=== PATIENT | male | born 1995 | race Caucasian/White ===

== ENCOUNTER 2018-09-27 15:18 | Inpatient (IN) | payer SELFPAY ==
[~2018-09-27] VITALS: Ht 180.3 cm; Wt 76.2 kg
[2018-09-27] VITALS (7 sets, daily range): BP systolic 127–150; BP diastolic 73–100; BMI 23.4
--- NOTE | ~2018-09-27 | MORECARE ---
CASE MANAGEMENT DISCHARGE SUMMARY PATIENT: DARRELL PENN UNIT: [id number] ADM DATE: 09/28/18 AGE: 23 : [birth year] SEX: M ROOM/BED: D.1211 AUTHOR: WHIT,DOC PHYSICIAN: REFERRING PHYSICIAN: PETTY CASTORENA MD DATE OF SERVICE: 10/01/18 Discharge Plan Patient Name: DARRELL PENN Facility: [facility]:[place] : 1995 Planned Disposition: Home Anticipated Discharge Date: Discharge Date: 10/01/2018 Expected LOS: Initial Reviewer: [email or web address] Initial Review Date: 10/01/2018 Generated: 10/01/18 10:01 pm Comments DCP- Discharge Planning Updated by [email or web address]: Rubi Fofana on 10/01/18 8:[address] Patient Name: DARRELL PENN Admission Status: ER Accout number: [id number] Admission Date: 09-28-2018 : 1995 Admission Diagnosis:NAUSEA WITH VOMITING, UNSPECIFIED Attending: PETTY CASTORENA Current LOS: 3 Anticipated DC Date: Planned Disposition: Home Primary Insurance: UNINSURED DISCOUNT PLAN Discharge Planning Comments: CM met with patient and girlfriend at bedside after obtaining verbal consent. Patient states he plans on returning home after discharge. Patient states he will have family transport him home via private vehicle. Patient denies any discharge needs at this time. CM spoke to patient about Medicaid he said he would be applying for it. CM will continue to follow and assist as needed for discharge planning / needs. Texture Artist: Rubi Fofana DCPIA - Discharge Planning Initial Assessment Updated by [email or web address]: Rubi Fofana on 10/01/18 8:57 pm * Is the patient Alert and Oriented? Yes * How many steps to enter\exit or inside your home? * PCP NO PCP * Pharmacy [facility] [address] * Preadmission Environment Home with Family * ADLs Independent * Equipment None * List name and contact numbers for known caregivers / representatives who currently or will assist patient after discharge: GUERLINE POOL [phone] * Verbal permission to speak to the caregivers and representatives has been obtained from the patient. Yes * Community resources currently utilized None * Additional services required to return to the preadmission environment? No * Can the patient safely return to the preadmission environment? Yes * Has this patient been hospitalized within the prior 30 days at any hospital? No Patient Name: DARRELL PENN Page [phone] at 2101 All edits/amendments must be made on the electronic document DICTATION DATE: 10/01/182099 DIGESTER HAND: DARYL 10/01/182099 RPT#: [id number] DC DATE:10/01/18 STATUS: DIS IN [facility] [address] [place] [address] END OF REPORT
[2018-09-27 16:14] LABS: BASOPHILS 0.1 % (0-2); EOSINOPHILS 0 % (0-7); HEMATOCRIT 54.2 % (42.0-54.0); IMMATURE GRANULOCYTES 0.3 % (0-5); LYMPHOCYTES 11.4 % (15-50); MCH 30.9 pg (26.0-34.0); MCHC 38.7 g/dL (31.0-37.0); MCV 79.7 fL (80.0-100.0); MEAN PLATELET VOLUME 9.5 fL (7.4-10.4); MONOCYTES 13.9 % (2-11); NEUTROPHILS 74.3 % (40-80); PLATELET COUNT 495 10x3/uL (130-400); RDW 12.3 % (11.5-14.5); WBC 12.5 10x3/uL (4.8-10.8)
[2018-09-27 16:39] LABS: ALBUMIN 4.7 g/dL (3.4-5.0); ALKALINE PHOSPHATASE 80 U/L (46-116); ALT (SGPT) 19 U/L (10-68); AMYLASE - SERUM 78 U/L (25-115); BILIRUBIN - TOTAL 1.04 mg/dL (0.2-1.3); CALC OSMOLALITY 260 mosm/kg (275-300); CALCIUM 10.9 mg/dL (8.5-10.1); CREATININE - SERUM 1.2 mg/dL (0.6-1.3); GLUCOSE 110 mg/dL (74-106); LIPASE 118 U/L (73-393); PROTEIN - SERUM 9.8 g/dL (6.4-8.2); SODIUM 125 mmol/L (136-145); UREA NITROGEN 34 mg/dL (7-18); eGFR NON AFRICAN AMERICAN 80 mL/min (90-120)
[2018-09-27 16:42] LABS: POTASSIUM - SERUM 2.3 mmol/L (3.5-5.1)
[2018-09-27 16:43] LABS: CARBON DIOXIDE 42.8 mmol/L (21.0-32.0); CHLORIDE - SERUM 73 mmol/L (98-107)
[2018-09-27 17:27] LABS: APPEARANCE SL CLDY (CLEAR); BILIRUBIN NEGATIVE (NEGATIVE); COLOR DK YELLOW (YELLOW); GLUCOSE NEGATIVE (NEGATIVE); KETONE MODERATE mg/dL (NEGATIVE); NITRITE NEGATIVE (NEGATIVE); PROTEIN 2+ mg/dL (NEGATIVE); UROBILINOGEN NORMAL (NORMAL)
[2018-09-27 17:28] LABS: RED CELLS - URINE 0-5 /hpf (0-5); WHITE CELLS - URINE 0-5 /hpf (0-5)
[2018-09-28] VITALS: BP 129/85
[2018-09-28 04:00] VITALS: BP 138/92
[2018-09-28 07:05] LABS: BASOPHILS 0.2 % (0-2); EOSINOPHILS 0.3 % (0-7); HEMATOCRIT 51.8 % (42.0-54.0); HEMOGLOBIN 19.5 g/dL (13.5-17.5); IMMATURE GRANULOCYTES 0.5 % (0-5); LYMPHOCYTES 17.1 % (15-50); MCH 30.7 pg (26.0-34.0); MCHC 37.6 g/dL (31.0-37.0); MCV 81.4 fL (80.0-100.0); MEAN PLATELET VOLUME 9.7 fL (7.4-10.4); NEUTROPHILS 67.9 % (40-80); PLATELET COUNT 426 10x3/uL (130-400); RBC 6.36 10x6/uL (4.20-6.10); RDW 12.5 % (11.5-14.5); WBC 10.8 10x3/uL (4.8-10.8)
[2018-09-28 07:09] VITALS: BP 137/86
[2018-09-28 07:15] LABS: CALCIUM 9.6 mg/dL (8.5-10.1); CARBON DIOXIDE 39.8 mmol/L (21.0-32.0); GLUCOSE 112 mg/dL (74-106); SODIUM 128 mmol/L (136-145); eGFR NON AFRICAN AMERICAN > 90 mL/min (90-120)
[2018-09-28 07:16] LABS: CALC OSMOLALITY 261 mosm/kg (275-300); UREA NITROGEN 25 mg/dL (7-18)
[2018-09-28 07:19] LABS: CHLORIDE - SERUM 83 mmol/L (98-107); POTASSIUM - SERUM 2.7 mmol/L (3.5-5.1)
[2018-09-28 08:56] LABS: APTT 32.4 SECONDS (22.8-39.4); INR 1.02 (0.85-1.17); PROTIME 12.9 SECONDS (11.6-15.0)
[2018-09-28 10:52] VITALS: BP 132/79
[2018-09-28 14:53] VITALS: BP 121/72
[2018-09-28 18:58] VITALS: BP 109/62
[2018-09-29 00:06] VITALS: BP 121/80
[2018-09-29 04:00] VITALS: BP 140/93
[2018-09-29 06:31] LABS: CALC OSMOLALITY 266 mosm/kg (275-300); CARBON DIOXIDE 35.3 mmol/L (21.0-32.0); CHLORIDE - SERUM 92 mmol/L (98-107); GLUCOSE 110 mg/dL (74-106); SODIUM 131 mmol/L (136-145); UREA NITROGEN 21 mg/dL (7-18); eGFR NON AFRICAN AMERICAN > 90 mL/min (90-120)
[2018-09-29 06:34] LABS: POTASSIUM - SERUM 2.7 mmol/L (3.5-5.1)
[2018-09-29 06:43] LABS: BASOPHILS 0.1 % (0-2); EOSINOPHILS 0.8 % (0-7); HEMATOCRIT 49.7 % (42.0-54.0); HEMOGLOBIN 18.5 g/dL (13.5-17.5); IMMATURE GRANULOCYTES 0.7 % (0-5); LYMPHOCYTES 19.8 % (15-50); MCH 30.5 pg (26.0-34.0); MCHC 37.2 g/dL (31.0-37.0); MCV 81.9 fL (80.0-100.0); MEAN PLATELET VOLUME 9.8 fL (7.4-10.4); MONOCYTES 12.9 % (2-11); NEUTROPHILS 65.7 % (40-80); PLATELET COUNT 392 10x3/uL (130-400); RBC 6.07 10x6/uL (4.20-6.10); RDW 12.3 % (11.5-14.5); WBC 8.7 10x3/uL (4.8-10.8)
[2018-09-29 07:43] VITALS: BP 113/68
[2018-09-29 15:00] LABS: UDS - AMPHET NEGATIVE QUAL (NEGATIVE); UDS - BARB NEGATIVE QUAL (NEGATIVE); UDS - BENZO NEGATIVE QUAL (NEGATIVE); UDS - COCAINE NEGATIVE QUAL (NEGATIVE); UDS - OPIATE POSITIVE QUAL (NEGATIVE); UDS - PCP NEGATIVE QUAL (NEGATIVE); UDS - THC POSITIVE QUAL (NEGATIVE)
[2018-09-29 15:08] LABS: APPEARANCE CLEAR (CLEAR); BILIRUBIN NEGATIVE (NEGATIVE); COLOR YELLOW (YELLOW); GLUCOSE NEGATIVE (NEGATIVE); KETONE NEGATIVE (NEGATIVE); NITRITE NEGATIVE (NEGATIVE); PROTEIN TRACE mg/dL (NEGATIVE); SPECIFIC GRAVITY 1.005 (1.005-1.020); UROBILINOGEN NORMAL (NORMAL)
[2018-09-29 15:09] LABS: BACTERIA MODERATE /hpf (NONE SEEN); RED CELLS - URINE 0-5 /hpf (0-5); WHITE CELLS - URINE 0-5 /hpf (0-5)
[2018-09-29 15:44] VITALS: Ht 180.3 cm; Wt 76.2 kg
[2018-09-29 16:00] VITALS: BP 108/79
[2018-09-29 20:00] VITALS: BP 115/70
[2018-09-30 00:30] VITALS: BP 109/52
[2018-09-30 07:16] LABS: CALC OSMOLALITY 264 mosm/kg (275-300); CALCIUM 8.8 mg/dL (8.5-10.1); CARBON DIOXIDE 30.9 mmol/L (21.0-32.0); CHLORIDE - SERUM 96 mmol/L (98-107); CREATININE - SERUM 0.9 mg/dL (0.6-1.3); GLUCOSE 96 mg/dL (74-106); POTASSIUM - SERUM 3.1 mmol/L (3.5-5.1); SODIUM 131 mmol/L (136-145); UREA NITROGEN 17 mg/dL (7-18); eGFR NON AFRICAN AMERICAN > 90 mL/min (90-120)
[2018-09-30 07:57] LABS: BASOPHILS 0.3 % (0-2); EOSINOPHILS 1.9 % (0-7); HEMOGLOBIN 16.7 g/dL (13.5-17.5); IMMATURE GRANULOCYTES 0.8 % (0-5); LYMPHOCYTES 27.4 % (15-50); MCH 29.9 pg (26.0-34.0); MCHC 36.3 g/dL (31.0-37.0); MCV 82.3 fL (80.0-100.0); MEAN PLATELET VOLUME 9.7 fL (7.4-10.4); MONOCYTES 10.5 % (2-11); NEUTROPHILS 59.1 % (40-80); PLATELET COUNT 337 10x3/uL (130-400); RBC 5.59 10x6/uL (4.20-6.10); RDW 12.2 % (11.5-14.5); WBC 9.1 10x3/uL (4.8-10.8)
[2018-09-30 08:47] VITALS: BP 105/77
[2018-09-30 12:49] VITALS: BP 127/74
[2018-09-30 16:44] VITALS: BP 113/69
[2018-09-30 20:00] VITALS: BP 131/70
[2018-10-01] VITALS: BP 97/46
[2018-10-01 04:00] VITALS: BP 108/66
[2018-10-01 07:48] LABS: BASOPHILS 0.6 % (0-2); HEMATOCRIT 46.5 % (42.0-54.0); HEMOGLOBIN 16.9 g/dL (13.5-17.5); IMMATURE GRANULOCYTES 0.5 % (0-5); LYMPHOCYTES 26.3 % (15-50); MCH 30.5 pg (26.0-34.0); MCHC 36.3 g/dL (31.0-37.0); MCV 83.9 fL (80.0-100.0); MONOCYTES 9.3 % (2-11); NEUTROPHILS 61.3 % (40-80); PLATELET COUNT 298 10x3/uL (130-400); RBC 5.54 10x6/uL (4.20-6.10); RDW 12.5 % (11.5-14.5)
[2018-10-01 08:03] LABS: CALC OSMOLALITY 264 mosm/kg (275-300); CALCIUM 9.3 mg/dL (8.5-10.1); CHLORIDE - SERUM 99 mmol/L (98-107); CREATININE - SERUM 0.7 mg/dL (0.6-1.3); GLUCOSE 84 mg/dL (74-106); SODIUM 132 mmol/L (136-145); UREA NITROGEN 15 mg/dL (7-18); eGFR NON AFRICAN AMERICAN > 90 mL/min (90-120)
[2018-10-01 08:04] VITALS: BP 132/79
[2018-10-01 08:04] LABS: POTASSIUM - SERUM 4.8 mmol/L (3.5-5.1)
[2018-10-01 11:32] VITALS: BP 109/53
[2018-10-01] MEDS ORDERED: REGLAN10 MG PO (13:47)
== END 2018-10-01 17:29 | disposition home or self-care (01) | DRG 392 ==
LOC: D.ER 15:18 → D.M3 18:41 → D.EDHOLD 18:41 → OBSVTIME 18:42 → D.M3 19:17
PROVIDERS: Emergency Medicine; Internal Medicine Nephrology
DX: A08.4 Viral intestinal infection, unspecified (principal); F17.213 Nicotine dependence, cigarettes, with withdrawal; E86.9 Volume depletion, unspecified; E87.6 Hypokalemia; F12.90 Cannabis use, unspecified, uncomplicated; K31.84 Gastroparesis

== ENCOUNTER 2018-12-24 18:49 | Emergency (ER) | payer SELFPAY ==
[~2018-12-24] VITALS: Ht 180.3 cm; Wt 75.0 kg
[~2018-12-24 18:49] MED LIST: REGLAN10 MG PO
[2018-12-24 19:05] VITALS: Ht 180.3 cm; Wt 75.0 kg
[2018-12-24 19:50] LABS: BASOPHILS 0.1 % (0-2); EOSINOPHILS 0.1 % (0-7); HEMATOCRIT 53.4 % (42.0-54.0); HEMOGLOBIN 19.5 g/dL (13.5-17.5); IMMATURE GRANULOCYTES 0.3 % (0-5); LYMPHOCYTES 7.3 % (15-50); MCH 30.6 pg (26.0-34.0); MCHC 36.5 g/dL (31.0-37.0); MCV 83.8 fL (80.0-100.0); MEAN PLATELET VOLUME 9.8 fL (7.4-10.4); MONOCYTES 9.1 % (2-11); NEUTROPHILS 83.1 % (40-80); RBC 6.37 10x6/uL (4.20-6.10); RDW 12.9 % (11.5-14.5); WBC 18.2 10x3/uL (4.8-10.8)
[2018-12-24 20:03] LABS: PLATELET COUNT 427 10x3/uL (130-400)
[2018-12-24 20:16] LABS: ALKALINE PHOSPHATASE 63 U/L (46-116); ALT (SGPT) 21 U/L (10-68); AMYLASE - SERUM 73 U/L (25-115); BILIRUBIN - TOTAL 0.55 mg/dL (0.2-1.3); CALC OSMOLALITY 282 mosm/kg (275-300); CALCIUM 9.9 mg/dL (8.5-10.1); CARBON DIOXIDE 35.5 mmol/L (21.0-32.0); CHLORIDE - SERUM 95 mmol/L (98-107); CREATININE - SERUM 1.1 mg/dL (0.6-1.3); GLUCOSE 120 mg/dL (74-106); LIPASE 79 U/L (73-393); POTASSIUM - SERUM 3.1 mmol/L (3.5-5.1); PROTEIN - SERUM 9.4 g/dL (6.4-8.2); SODIUM 141 mmol/L (136-145); TROPONIN-I < 0.017 ng/mL (0.000-0.060); UREA NITROGEN 15 mg/dL (7-18); eGFR NON AFRICAN AMERICAN 89 mL/min (90-120)
[2018-12-24] MEDS ORDERED: ZOFRAN ODT4 MG/UDTAB PO (21:45)
[2018-12-24] MEDS ORDERED: PROTONIX40 MG PO (21:45)
[2018-12-24] MEDS ORDERED: REGLAN10 MG PO (21:45)
[2018-12-24] MEDS ORDERED: BENTYL 20 MG TA20 MG PO (21:45)
[2018-12-24 21:55] LABS: APPEARANCE CLEAR (CLEAR); BILIRUBIN NEGATIVE (NEGATIVE); COLOR YELLOW (YELLOW); GLUCOSE NEGATIVE (NEGATIVE); KETONE NEGATIVE (NEGATIVE); NITRITE NEGATIVE (NEGATIVE); PROTEIN NEGATIVE (NEGATIVE); SPECIFIC GRAVITY 1.005 (1.005-1.020); UROBILINOGEN NORMAL (NORMAL)
[2018-12-24 22:20] VITALS: BP 139/71
== END 2018-12-24 22:20 | disposition home or self-care (01) ==
LOC: D.ER 18:49
PROVIDERS: Emergency Medicine; Family Medicine
DX: A08.4 Viral intestinal infection, unspecified (principal); K20.9 Esophagitis, unspecified; K31.84 Gastroparesis; R10.84 Generalized abdominal pain

== ENCOUNTER 2018-12-26 13:53 | Inpatient (IN) | payer SELFPAY ==
[~2018-12-26] VITALS: Ht 180.3 cm; Wt 80.6 kg
[~2018-12-26 13:53] MED LIST changes: +BENTYL 20 MG TA20 MG PO; +PROTONIX40 MG PO; +ZOFRAN ODT4 MG/UDTAB PO
[2018-12-26 14:04] VITALS: Ht 180.3 cm; Wt 80.6 kg
[2018-12-26 15:00] LABS: ALBUMIN 4.7 g/dL (3.4-5.0); ALKALINE PHOSPHATASE 69 U/L (46-116); ALT (SGPT) 16 U/L (10-68); BILIRUBIN - TOTAL 0.99 mg/dL (0.2-1.3); CALC OSMOLALITY 268 mosm/kg (275-300); CALCIUM 10.1 mg/dL (8.5-10.1); CARBON DIOXIDE 34.5 mmol/L (21.0-32.0); CHLORIDE - SERUM 87 mmol/L (98-107); GLUCOSE 113 mg/dL (74-106); SODIUM 133 mmol/L (136-145); UREA NITROGEN 17 mg/dL (7-18); eGFR NON AFRICAN AMERICAN > 90 mL/min (90-120)
--- NOTE | 2018-12-26 15:00 | NUR ---
PT UNABLE TO PROVIDE URINE SAMPLE AT THIS TIME.
[2018-12-26 15:01] LABS: BASOPHILS 0.1 % (0-2); EOSINOPHILS 0 % (0-7); HEMATOCRIT 52.4 % (42.0-54.0); HEMOGLOBIN 19.6 g/dL (13.5-17.5); IMMATURE GRANULOCYTES 0.2 % (0-5); LYMPHOCYTES 8.8 % (15-50); MCH 30.1 pg (26.0-34.0); MCHC 37.4 g/dL (31.0-37.0); MEAN PLATELET VOLUME 9.9 fL (7.4-10.4); MONOCYTES 10.4 % (2-11); NEUTROPHILS 80.5 % (40-80); PLATELET COUNT 425 10x3/uL (130-400); RDW 12.6 % (11.5-14.5); WBC 12.5 10x3/uL (4.8-10.8)
[2018-12-26 15:04] LABS: MCV 80.4 fL (80.0-100.0); RBC 6.52 10x6/uL (4.20-6.10)
[2018-12-26 15:09] LABS: POTASSIUM - SERUM 2.9 mmol/L (3.5-5.1)
[2018-12-26 16:28] LABS: AMYLASE - SERUM 78 U/L (25-115); LIPASE 96 U/L (73-393)
[2018-12-26 17:44] VITALS: BP 123/71
--- NOTE | 2018-12-26 18:03 | NUR ---
RECIEVED PT FROM ER. VISABILY ILL NOT CURRENTLY THROWING UP. NPO AT THSI TIME. CL IN REACH. SRX2. GIRLFRIEND AT BEDSIDE
--- NOTE | 2018-12-26 18:30 | NUR ---
PT K IS 2.9. PT WAS THE ONE THAT ALERTED ME TO THE FACT ER TOLD HIM HIS K WAS CRITICALLY LOW. ER DID NOT TREAT OR INFORM ME OF THE PROBLEM. WILL TX. RESULTS CAME AT 1430
[2018-12-26 18:45] LABS: PHOSPHOROUS 4.3 mg/dL (2.5-4.9)
[2018-12-26 20:00] VITALS: BP 132/86
--- NOTE | 2018-12-26 20:14 | NUR ---
RECIEVED LYING IN BED WITH EYES CLOSED. EYES OPEN SPONTANEOUSLY WHEN DOOR OPENS. IV TO LEFT AC WITH LR INFUSING AT 125. DENIES ANY NEEDS AT THIS TIME.
[2018-12-27 00:05] VITALS: BP 111/66
[2018-12-27 04:00] VITALS: BP 126/72
[2018-12-27 05:55] LABS: BASOPHILS 0.1 % (0-2); EOSINOPHILS 0.1 % (0-7); HEMATOCRIT 49.4 % (42.0-54.0); HEMOGLOBIN 18.5 g/dL (13.5-17.5); IMMATURE GRANULOCYTES 0.2 % (0-5); LYMPHOCYTES 11.7 % (15-50); MCH 30.4 pg (26.0-34.0); MCHC 37.4 g/dL (31.0-37.0); MCV 81.3 fL (80.0-100.0); MEAN PLATELET VOLUME 10.1 fL (7.4-10.4); MONOCYTES 9.4 % (2-11); NEUTROPHILS 78.5 % (40-80); RBC 6.08 10x6/uL (4.20-6.10); RDW 12.4 % (11.5-14.5); WBC 9.8 10x3/uL (4.8-10.8)
[2018-12-27 06:03] LABS: PLATELET COUNT 332 10x3/uL (130-400)
[2018-12-27 06:15] LABS: ALKALINE PHOSPHATASE 57 U/L (46-116); ALT (SGPT) 16 U/L (10-68); CALC OSMOLALITY 270 mosm/kg (275-300); CALCIUM 9.3 mg/dL (8.5-10.1); CARBON DIOXIDE 29.3 mmol/L (21.0-32.0); CHLORIDE - SERUM 94 mmol/L (98-107); CREATININE - SERUM 0.8 mg/dL (0.6-1.3); GLUCOSE 95 mg/dL (74-106); POTASSIUM - SERUM 3.1 mmol/L (3.5-5.1); PROTEIN - SERUM 7.8 g/dL (6.4-8.2); SODIUM 135 mmol/L (136-145); UREA NITROGEN 16 mg/dL (7-18); eGFR NON AFRICAN AMERICAN > 90 mL/min (90-120)
--- NOTE | 2018-12-27 08:20 | NUR ---
PATIENT IS RESTING QUIETLY AT THIS TIME. HE IS LAYING ON HIS LEFT SIDE IN BED WITH LIGHTS LOW AND EYES CLOSED.
[2018-12-27 09:57] VITALS: BP 107/55
--- NOTE | 2018-12-27 11:13 | NUR ---
RN ROUNDS - PATIENT RESTING WITH EYES CLOSED. FEMALE VISITOR AT BEDSIDE. NURSE IN ROOM HANGING K+ RIDER AT THIS TIME. PATIENT RESP EVEN AND UNLABORED, RESP 18. CALL LIGHT WITHIN REACH. NO DISTRESS.
[2018-12-27 12:46] VITALS: BP 136/79
[2018-12-27 17:45] VITALS: BP 138/83
--- NOTE | 2018-12-27 18:51 | NUR ---
PATIENT WAS IN THE SHOWER, AND WHEN ICAM BACK IN TO CHECK ON HIM JUST NOW HE IS NOT IN THE ROOM. HE STILL HAS DEODERANT AND A BAG WITH A T SHIRT AND UNDERWEAR IN THE ROOM. PATIENT DID NOT SAY ANYTHING TO ANY ONE.
--- NOTE | 2018-12-27 19:26 | NUR ---
RECIEVED LYING IN BED WITH TV ON AND EYES OPEN. ALWERT AND ORIENTED X4. FRIWND AT BEDSIDE. STATES NO N/V TODAY AND HE FEELS MUCH BETTER. IV TO LEFT AC WITH LR @ 125/HR. AND ZOFRAN AT 4.7. POTASSIUM INFUSING AT THIS TIME. DENIES ANY NEEDS AT THIS TIME,
[2018-12-27 20:00] VITALS: BP 119/74
[2018-12-28] VITALS: BP 134/94
[2018-12-28 04:00] VITALS: BP 134/74
[2018-12-28 05:44] LABS: BASOPHILS 0.3 % (0-2); EOSINOPHILS 0.9 % (0-7); HEMOGLOBIN 16.7 g/dL (13.5-17.5); IMMATURE GRANULOCYTES 0.2 % (0-5); LYMPHOCYTES 31.1 % (15-50); MCH 29.9 pg (26.0-34.0); MCHC 36.3 g/dL (31.0-37.0); MCV 82.3 fL (80.0-100.0); MEAN PLATELET VOLUME 10.2 fL (7.4-10.4); NEUTROPHILS 56.5 % (40-80); PLATELET COUNT 321 10x3/uL (130-400); RBC 5.59 10x6/uL (4.20-6.10); RDW 12.2 % (11.5-14.5); WBC 8.8 10x3/uL (4.8-10.8)
[2018-12-28 06:33] LABS: ALBUMIN 3.5 g/dL (3.4-5.0); ALKALINE PHOSPHATASE 48 U/L (46-116); ALT (SGPT) 15 U/L (10-68); BILIRUBIN - TOTAL 1.11 mg/dL (0.2-1.3); CALC OSMOLALITY 274 mosm/kg (275-300); CALCIUM 8.6 mg/dL (8.5-10.1); CARBON DIOXIDE 28.6 mmol/L (21.0-32.0); CHLORIDE - SERUM 98 mmol/L (98-107); GLUCOSE 82 mg/dL (74-106); PROTEIN - SERUM 6.5 g/dL (6.4-8.2); SODIUM 137 mmol/L (136-145); UREA NITROGEN 17 mg/dL (7-18); eGFR NON AFRICAN AMERICAN > 90 mL/min (90-120)
[2018-12-28 06:36] LABS: POTASSIUM - SERUM 3.2 mmol/L (3.5-5.1)
--- NOTE | 2018-12-28 07:46 | NUR ---
PT LYING IN BED. STATES HE VOMMITED AND IS UNCOMFORTABLE. CAN NOT GIVE ZOFRAN PT IS ON A ZOFRAN DRIP. PT UNDERSTANDS. DID NOT SEE VOMMITING HAPPENING. CL IN REACH SRX2.
[2018-12-28 08:33] VITALS: BP 127/73
--- NOTE | 2018-12-28 12:05 | NUR ---
RN ROUNDS. PATIENT RESTING IN BED WITH EYES CLOSED, EASILY AROUSED. LATHER APPRENTICE COMPLETING VITAL SIGNS AT THIS TIME. HR 56. DENIES NEEDS AT THIS TIME. NO DISTRESS.
[2018-12-28 12:06] LABS: APPEARANCE CLOUDY (CLEAR); BILIRUBIN NEGATIVE (NEGATIVE); COLOR YELLOW (YELLOW); GLUCOSE NEGATIVE (NEGATIVE); KETONE LARGE mg/dL (NEGATIVE); NITRITE NEGATIVE (NEGATIVE); PROTEIN NEGATIVE (NEGATIVE); SPECIFIC GRAVITY 1.015 (1.005-1.020)
[2018-12-28 13:26] VITALS: BP 134/88
[2018-12-28 17:01] VITALS: BP 122/75
--- NOTE | 2018-12-28 19:15 | NUR ---
RECIEVED LAYING IN BED WITH EYES OPEN AND TV ON. FRIEND AT BEDSIDE. ALERT AND ORIENTED X4. IV TO LEFT AC SL.. UP AD EVELYN. DENEIS ANY N/V AFTER THIS AM. DENIES ANY NEEDS, WILL CONT. POC.
[2018-12-28 20:00] VITALS: BP 124/77
[2018-12-29] VITALS: BP 127/74
[2018-12-29 04:00] VITALS: BP 124/90
--- NOTE | 2018-12-29 04:58 | NUR ---
RESTING IN BED WITH EYES CLOSED. EASILY AROUSES WITH VERBAL STIMULI. DENIES ANY N/V THIS SHIFT. DENIES ANY NEEDS.
[2018-12-29 06:03] LABS: ALBUMIN 3.6 g/dL (3.4-5.0); ALKALINE PHOSPHATASE 56 U/L (46-116); ALT (SGPT) 12 U/L (10-68); BILIRUBIN - TOTAL 1.06 mg/dL (0.2-1.3); CALC OSMOLALITY 269 mosm/kg (275-300); CALCIUM 9.2 mg/dL (8.5-10.1); CARBON DIOXIDE 25.6 mmol/L (21.0-32.0); CHLORIDE - SERUM 99 mmol/L (98-107); CREATININE - SERUM 0.9 mg/dL (0.6-1.3); GLUCOSE 88 mg/dL (74-106); POTASSIUM - SERUM 3.8 mmol/L (3.5-5.1); SODIUM 135 mmol/L (136-145); UREA NITROGEN 15 mg/dL (7-18); eGFR NON AFRICAN AMERICAN > 90 mL/min (90-120)
[2018-12-29 06:08] LABS: BASOPHILS 0.3 % (0-2); EOSINOPHILS 1.5 % (0-7); HEMATOCRIT 45.9 % (42.0-54.0); HEMOGLOBIN 16.9 g/dL (13.5-17.5); IMMATURE GRANULOCYTES 0.3 % (0-5); LYMPHOCYTES 27.6 % (15-50); MCHC 36.8 g/dL (31.0-37.0); MCV 81.5 fL (80.0-100.0); MEAN PLATELET VOLUME 9.8 fL (7.4-10.4); NEUTROPHILS 60.3 % (40-80); PLATELET COUNT 317 10x3/uL (130-400); RBC 5.63 10x6/uL (4.20-6.10); RDW 12.3 % (11.5-14.5); WBC 8.6 10x3/uL (4.8-10.8)
[2018-12-29 08:32] VITALS: BP 104/63
--- NOTE | 2018-12-29 12:33 | NUR ---
REVIEWED AND AGREE WITH ASSESMENT.
[2018-12-29 12:52] VITALS: BP 110/69
--- NOTE | 2018-12-29 14:00 | NUR ---
PT DISCHARGED TO HOME VIA [facility] DISCHARGE SUMMARY AND MEDS REVIEWED WITH PT TOLERATED WELL
--- NOTE | 2018-12-29 16:37 | MORECARE ---
CASE MANAGEMENT DISCHARGE SUMMARY PATIENT: DARRELL PENN UNIT: [id number] ADM DATE: 12/26/18 AGE: 23 : [birth year] SEX: M ROOM/BED: D.2131 AUTHOR: MALKA SHERMAN PHYSICIAN: REFERRING PHYSICIAN: JHONNY CHEATHAM MD DATE OF SERVICE: 12/29/18 Discharge Plan Patient Name: DARRELL PENN Facility: [facility]:[place] : 1995 Planned Disposition: Home Anticipated Discharge Date: 12/29/18 Discharge Date: 12/29/2018 Expected LOS: 3 Initial Reviewer: [email or web address] Initial Review Date: 12/29/2018 Generated: 12/29/18 5:37 pm Comments DCP- Discharge Planning Updated by [email or web address]: Yaniv Hernández on 12/29/18 3:[address] Patient Name: DARRELL PENN Admission Status: ER Accout number: [id number] Admission Date: 12-26-2018 : 1995 Admission Diagnosis: Attending: JHONNY CHEATHAM Current LOS: 3 Anticipated DC Date: 12-29-2018 Planned Disposition: Home Primary Insurance: UNINSURED DISCOUNT PLAN Discharge Planning Comments: CM RECEIVED DISCHARGE ORDER, ATTEMPTED TO MEET WITH PT FOR INITIAL ASSESSMENT OF DISCHARGE NEEDS. PT WAS NOT IN ROOM AT APPROXIMATELY 1340 HOURS. CM SPOKE TO CELLOPHANE WORKER NURSE WHO ADVISED PT HAD ALREADY DISCHARGED HOME. Pararescue Craftsman: Yaniv Hernández Patient Name: DARRELL PENN Page [phone] at 1637 All edits/amendments must be made on the electronic document DICTATION DATE: 12/29/18 1637 PIPE ORGAN MECHANIC APPRENTICE: DARYL 12/29/18 1637 RPT#: [id number] DC DATE:12/29/18 STATUS: DIS IN [facility] [address] [place] [address] END OF REPORT
== END 2018-12-29 16:05 | disposition home or self-care (01) | DRG 392 ==
LOC: D.ER 13:53 → D.M2 16:24 → D.EDHOLD 16:24 → D.M2 17:14
PROVIDERS: Family Medicine; ADMIT Family Medicine
DX: K31.84 Gastroparesis (principal); F17.213 Nicotine dependence, cigarettes, with withdrawal; E87.6 Hypokalemia; E86.0 Dehydration; F12.90 Cannabis use, unspecified, uncomplicated; K20.9 Esophagitis, unspecified

== ENCOUNTER 2019-01-16 15:36 | Emergency (ER) | payer SELFPAY ==
[~2019-01-16] VITALS: Ht 180.3 cm; Wt 80.5 kg
[2019-01-16 15:56] VITALS: Ht 180.3 cm; Wt 80.5 kg
[2019-01-16 16:27] LABS: BASOPHILS 0.1 % (0-2); EOSINOPHILS 0 % (0-7); HEMATOCRIT 45.9 % (42.0-54.0); HEMOGLOBIN 16.7 g/dL (13.5-17.5); IMMATURE GRANULOCYTES 0.1 % (0-5); LYMPHOCYTES 7.1 % (15-50); MCHC 36.4 g/dL (31.0-37.0); MCV 82.6 fL (80.0-100.0); MEAN PLATELET VOLUME 9.8 fL (7.4-10.4); MONOCYTES 4.2 % (2-11); NEUTROPHILS 88.5 % (40-80); PLATELET COUNT 311 10x3/uL (130-400); RBC 5.56 10x6/uL (4.20-6.10); RDW 12.5 % (11.5-14.5); WBC 7.4 10x3/uL (4.8-10.8)
[2019-01-16 16:51] LABS: ALBUMIN 4.3 g/dL (3.4-5.0); ALKALINE PHOSPHATASE 62 U/L (46-116); ALT (SGPT) 17 U/L (10-68); BILIRUBIN - TOTAL 0.46 mg/dL (0.2-1.3); CALCIUM 9.5 mg/dL (8.5-10.1); CARBON DIOXIDE 24.9 mmol/L (21.0-32.0); CHLORIDE - SERUM 96 mmol/L (98-107); CREATININE - SERUM 0.8 mg/dL (0.6-1.3); POTASSIUM - SERUM 3.5 mmol/L (3.5-5.1); PROTEIN - SERUM 8.4 g/dL (6.4-8.2); SODIUM 135 mmol/L (136-145); UREA NITROGEN 10 mg/dL (7-18); eGFR NON AFRICAN AMERICAN > 90 mL/min (90-120)
[2019-01-16 16:54] LABS: AMYLASE - SERUM 68 U/L (25-115); LIPASE 93 U/L (73-393)
[2019-01-16 16:56] LABS: CALC OSMOLALITY 270 mosm/kg (275-300); GLUCOSE 134 mg/dL (74-106); TROPONIN-I < 0.017 ng/mL (0.000-0.060)
[2019-01-16] MEDS ORDERED: TAMIFLU75 MG PO (18:51)
[2019-01-16] MEDS ORDERED: PHENERGAN25 M1 PO (18:52)
[2019-01-16] MEDS ORDERED: REGLAN10 MG PO (18:52)
[2019-01-16 20:05] VITALS: BP 122/71
== END 2019-01-16 20:06 | disposition home or self-care (01) ==
LOC: D.ER 15:36
PROVIDERS: Family Medicine
DX: J09.X2 Influenza due to identified novel influenza A virus with other respiratory manifestations (principal); K31.84 Gastroparesis; R50.9 Fever, unspecified

== ENCOUNTER 2019-01-19 13:37 | Emergency (ER) | payer SELFPAY ==
[~2019-01-19] VITALS: Ht 180.3 cm; Wt 77.3 kg
[~2019-01-19 13:37] MED LIST changes: +PHENERGAN25 M1 PO; +TAMIFLU75 MG PO
[2019-01-19 13:57] VITALS: Ht 180.3 cm; Wt 77.3 kg
[2019-01-19 14:54] LABS: BASOPHILS 0.2 % (0-2); EOSINOPHILS 0 % (0-7); HEMATOCRIT 51.2 % (42.0-54.0); HEMOGLOBIN 18.9 g/dL (13.5-17.5); IMMATURE GRANULOCYTES 0.2 % (0-5); MCH 29.8 pg (26.0-34.0); MCHC 36.9 g/dL (31.0-37.0); MCV 80.8 fL (80.0-100.0); MEAN PLATELET VOLUME 9.7 fL (7.4-10.4); MONOCYTES 22.7 % (2-11); NEUTROPHILS 63.9 % (40-80); PLATELET COUNT 293 10x3/uL (130-400); RBC 6.34 10x6/uL (4.20-6.10); RDW 12.3 % (11.5-14.5); WBC 4.7 10x3/uL (4.8-10.8)
[2019-01-19 15:12] LABS: ALBUMIN 4.1 g/dL (3.4-5.0); ALKALINE PHOSPHATASE 62 U/L (46-116); ALT (SGPT) 17 U/L (10-68); CALC OSMOLALITY 257 mosm/kg (275-300); CALCIUM 9.6 mg/dL (8.5-10.1); CARBON DIOXIDE 32.1 mmol/L (21.0-32.0); CREATININE - SERUM 0.8 mg/dL (0.6-1.3); GLUCOSE 106 mg/dL (74-106); PROTEIN - SERUM 8.9 g/dL (6.4-8.2); SODIUM 127 mmol/L (136-145); UREA NITROGEN 21 mg/dL (7-18); eGFR NON AFRICAN AMERICAN > 90 mL/min (90-120)
[2019-01-19 15:14] LABS: POTASSIUM - SERUM 2.8 mmol/L (3.5-5.1)
[2019-01-19 15:15] LABS: CHLORIDE - SERUM 82 mmol/L (98-107)
[2019-01-19] MEDS ORDERED: COMPAZINE25 MG RC (17:21)
[2019-01-19 18:39] VITALS: BP 138/89
== END 2019-01-19 18:00 | disposition home or self-care (01) ==
LOC: D.ER 13:37
PROVIDERS: Emergency Medicine
DX: B34.9 Viral infection, unspecified (principal); E86.0 Dehydration

== ENCOUNTER 2019-01-24 13:45 | Inpatient (IN) | payer SELFPAY ==
[~2019-01-24] VITALS: Ht 180.3 cm; Wt 80.5 kg
[~2019-01-24 13:45] MED LIST changes: +COMPAZINE25 MG RC
[2019-01-24 14:38] LABS: APPEARANCE CLEAR (CLEAR); COLOR YELLOW (YELLOW); GLUCOSE NEGATIVE (NEGATIVE); KETONE LARGE mg/dL (NEGATIVE); NITRITE NEGATIVE (NEGATIVE); PROTEIN 1+ mg/dL (NEGATIVE); SPECIFIC GRAVITY 1.015 (1.005-1.020); UROBILINOGEN NORMAL (NORMAL)
[2019-01-24 14:39] LABS: BILIRUBIN NEGATIVE (NEGATIVE)
[2019-01-24 14:42] LABS: RED CELLS - URINE OCC /hpf (0-5); WHITE CELLS - URINE OCC /hpf (0-5)
[2019-01-24 14:43] LABS: BACTERIA FEW /hpf (NONE SEEN); EPITHELIAL CELLS OCC /hpf (0-5); MUCUS >1+ /lpf (NONE SEEN)
[2019-01-24 14:55] LABS: BASOPHILS 0.1 % (0-2); EOSINOPHILS 0 % (0-7); HEMATOCRIT 51.1 % (42.0-54.0); HEMOGLOBIN 19.1 g/dL (13.5-17.5); IMMATURE GRANULOCYTES 0.6 % (0-5); LYMPHOCYTES 24.3 % (15-50); MCH 29.7 pg (26.0-34.0); MCHC 37.4 g/dL (31.0-37.0); MCV 79.3 fL (80.0-100.0); RBC 6.44 10x6/uL (4.20-6.10); RDW 12.6 % (11.5-14.5); WBC 8.3 10x3/uL (4.8-10.8)
[2019-01-24 15:05] LABS: ALBUMIN 3.7 g/dL (3.4-5.0); ALKALINE PHOSPHATASE 57 U/L (46-116); ALT (SGPT) 16 U/L (10-68); AMYLASE - SERUM 68 U/L (25-115); BILIRUBIN - TOTAL 0.62 mg/dL (0.2-1.3); CALC OSMOLALITY 271 mosm/kg (275-300); CALCIUM 8.8 mg/dL (8.5-10.1); CARBON DIOXIDE 36.3 mmol/L (21.0-32.0); CHLORIDE - SERUM 91 mmol/L (98-107); CREATININE - SERUM 0.9 mg/dL (0.6-1.3); GLUCOSE 121 mg/dL (74-106); LIPASE 107 U/L (73-393); PROTEIN - SERUM 7.5 g/dL (6.4-8.2); SODIUM 135 mmol/L (136-145); UREA NITROGEN 15 mg/dL (7-18); eGFR NON AFRICAN AMERICAN > 90 mL/min (90-120)
[2019-01-24 15:07] LABS: POTASSIUM - SERUM 2.7 mmol/L (3.5-5.1)
--- NOTE | 2019-01-24 15:09 | NUR ---
LAB CALLED, PTS POT. 2.7, NOTIFIED.
[2019-01-24 15:10] LABS: HELICOBACTER PYLORI IGG NEGATIVE (NEGATIVE)
[2019-01-24 15:32] LABS: PLATELET COUNT 446 10x3/uL (130-400)
--- NOTE | 2019-01-24 15:33 | NUR ---
PT TO CT AT THIS TIME VIA STRETCHER.
[2019-01-24 17:23] VITALS: Ht 180.3 cm; Wt 80.5 kg
--- NOTE | 2019-01-24 18:03 | NUR ---
LATE ENTRY 1729. PT CAME TO FLOOR. CO OF N/V AND FEELING BLOATED. FAMILY AT BEDSIDE. NO S/S OF ACUTE DISTRESS. CL IN PLACE.
--- NOTE | 2019-01-24 18:34 | NUR ---
PT RESTING IN BED. DENIES PAIN. NO N/V NOTED. NO S/S OF ACUTE DISTRESS. CL IN PLACE.
[2019-01-24] MEDS ORDERED: BENTYL10 MG PO (19:39)
--- NOTE | 2019-01-24 20:00 | NUR ---
PT REPORTS ABDOMINAL CRAMPS. STATES HE IS PRESCRIBED BENTYL AT HOME FOR IT, BUT DOES NOT TAKE IT DUE TO INABILITY TO PAY FOR PRESCRIPTION.
[2019-01-24 21:18] VITALS: BP 110/76
[2019-01-25 00:48] VITALS: BP 118/80
--- NOTE | 2019-01-25 05:06 | NUR ---
I have reviewed this patient and I concur with the Shift Assessment completed by the Licensed Practical Nurse today this shift.
--- NOTE | 2019-01-25 07:52 | NUR ---
PT RESTING IN BED WITH EYES CLOSED. AROUSED BY VERBAL STIMULI.DENIES N/V. PAIN NO S/S OF ACUTE DISTRESS. CL IN PLACE.
[2019-01-25 09:45] VITALS: BP 112/64
[2019-01-25 13:24] VITALS: BP 113/68
[2019-01-25] MEDS ORDERED: PROTONIX40 MG PO (14:25)
--- NOTE | 2019-01-25 15:13 | NUR ---
DC IV WITH TIP IN TACT. NO REDDNESS OR SWELLING NOTED.
--- NOTE | 2019-01-25 15:57 | NUR ---
DC INSTRUCTIONS AND EDUCATION GIVEN TO PT. CALLED [facility] IN TO [facility] [address] PER PT REQUEST. PT "UNDERSTANDS HE NEEDS TO MAKE HIS F/U APPTS AND TAKE HIS MEDICATIONS. ALL BELONGINGS TAKEN DOWN WITH PT. GF AND PT AMBULATED OFF THE FLOOR. NO S/S OF ACUTE DISTRESS.
[2019-01-25 16:03] LABS: CALCIUM 8.6 mg/dL (8.5-10.1); CARBON DIOXIDE 28.2 mmol/L (21.0-32.0); CHLORIDE - SERUM 98 mmol/L (98-107); CREATININE - SERUM 0.8 mg/dL (0.6-1.3); GLUCOSE 89 mg/dL (74-106); SODIUM 132 mmol/L (136-145); eGFR NON AFRICAN AMERICAN > 90 mL/min (90-120)
[2019-01-25 16:05] LABS: CALC OSMOLALITY 261 mosm/kg (275-300); POTASSIUM - SERUM 3.8 mmol/L (3.5-5.1); UREA NITROGEN 6 mg/dL (7-18)
--- NOTE | 2019-01-25 19:08 | MORECARE ---
CASE MANAGEMENT DISCHARGE SUMMARY PATIENT: DARRELL PENN UNIT: [id number] ADM DATE: 01/24/19 AGE: 23 : [birth year] SEX: M ROOM/BED: D.2206 AUTHOR: MALKA SHERMAN PHYSICIAN: REFERRING PHYSICIAN: PASTORA CASE MD DATE OF SERVICE: 01/25/19 Discharge Plan Patient Name: DARRELL PENN Facility: [facility]:[place] : 1995 Planned Disposition: Home Anticipated Discharge Date: 01/25/19 Discharge Date: 01/25/2019 Expected LOS: 1 Initial Reviewer: [email or web address] Initial Review Date: 01/24/2019 Generated: 01/25/19 8:07 pm Comments DCP- Discharge Planning Updated by [email or web address]: Bev Green on 01/25/19 6:[address] LATE ENTRY 1513 PATIENT HAD BEEN AMBULATING IN THE [place] W/ HIS FRIEND. HAS TRANSPORTATION TO HOME. DISCUSSED HIS DISCHARGE MED LIST W/ PATIENT AND HIS NURSE. HE STATES HE CAN AFFORD HIS MEDICATIONS. WILL COTTON STOMPER HIS MEDS AT [facility] AND [facility] ON [address] DENIES ANY ADDITIONAL NEEDS. Patient Name: DARRELL PENN Page [id number] at 1908 All edits/amendments must be made on the electronic document DICTATION DATE: 01/25/191906 TAP OUT OPERATOR: DARYL 01/25/191906 RPT#: [id number] DC DATE:01/25/19 STATUS: DIS IN [facility] [address] [place] [address] END OF REPORT
== END 2019-01-25 15:59 | disposition home or self-care (01) | DRG 392 ==
LOC: D.ER 13:45 → D.EDHOLD 16:23 → D.MS 16:31
PROVIDERS: Emergency Medicine; ADMIT Family Medicine; ATTEND Family Medicine
DX: K31.84 Gastroparesis (principal); E87.6 Hypokalemia; F12.90 Cannabis use, unspecified, uncomplicated; K20.9 Esophagitis, unspecified; Z72.0 Tobacco use

== ENCOUNTER 2019-02-21 10:26 | Inpatient (IN) | payer MEDICAID ==
[~2019-02-21] VITALS: Ht 180.3 cm; Wt 77.1 kg
[~2019-02-21 10:26] MED LIST changes: +BENTYL10 MG PO
[2019-02-21 11:06] LABS: BASOPHILS 0.1 % (0-2); EOSINOPHILS 0 % (0-7); HEMATOCRIT 51.6 % (42.0-54.0); HEMOGLOBIN 19.2 g/dL (13.5-17.5); IMMATURE GRANULOCYTES 0.3 % (0-5); LYMPHOCYTES 10.5 % (15-50); MCH 30.4 pg (26.0-34.0); MCHC 37.2 g/dL (31.0-37.0); MCV 81.6 fL (80.0-100.0); MONOCYTES 7.1 % (2-11); PLATELET COUNT 366 10x3/uL (130-400); RBC 6.32 10x6/uL (4.20-6.10); WBC 12.7 10x3/uL (4.8-10.8)
[2019-02-21 11:13] LABS: APPEARANCE CLEAR (CLEAR); COLOR YELLOW (YELLOW)
[2019-02-21 11:14] LABS: BACTERIA FEW /hpf (NONE SEEN); BILIRUBIN NEGATIVE (NEGATIVE); EPITHELIAL CELLS 0-5 /hpf (0-5); GLUCOSE NEGATIVE (NEGATIVE); KETONE NEGATIVE (NEGATIVE); MUCUS >1+ /lpf (NONE SEEN); NITRITE NEGATIVE (NEGATIVE); PROTEIN 2+ mg/dL (NEGATIVE); UROBILINOGEN NORMAL (NORMAL); WHITE CELLS - URINE 0-5 /hpf (0-5)
[2019-02-21 11:15] LABS: AMORPHOUS SEDIMENT <1+ /lpf (NONE SEEN); GRANULAR CAST OCC /lpf (NONE SEEN)
[2019-02-21 11:40] LABS: ALBUMIN 5.2 g/dL (3.4-5.0); ALKALINE PHOSPHATASE 63 U/L (46-116); ALT (SGPT) 25 U/L (10-68); AMYLASE - SERUM 79 U/L (25-115); CALC OSMOLALITY 268 mosm/kg (275-300); CALCIUM 9.9 mg/dL (8.5-10.1); CREATININE - SERUM 1.2 mg/dL (0.6-1.3); GLUCOSE 124 mg/dL (74-106); LIPASE 77 U/L (73-393); PROTEIN - SERUM 9.6 g/dL (6.4-8.2); SODIUM 132 mmol/L (136-145); UREA NITROGEN 22 mg/dL (7-18); eGFR NON AFRICAN AMERICAN 80 mL/min (90-120)
[2019-02-21 11:49] LABS: CHLORIDE - SERUM 81 mmol/L (98-107)
[2019-02-21 13:30] VITALS: BP 122/72
[2019-02-21 17:12] VITALS: BP 107/66
[2019-02-21 19:31] VITALS: BP 99/58
[2019-02-21 19:41] VITALS: BMI 23.7
[2019-02-22] VITALS: BP 119/73
[2019-02-22 07:07] LABS: BASOPHILS 0 % (0-2); EOSINOPHILS 0.1 % (0-7); HEMOGLOBIN 16.2 g/dL (13.5-17.5); IMMATURE GRANULOCYTES 0.1 % (0-5); LYMPHOCYTES 14.2 % (15-50); MCH 29.7 pg (26.0-34.0); MCV 82.4 fL (80.0-100.0); MONOCYTES 10.9 % (2-11); NEUTROPHILS 74.7 % (40-80); PLATELET COUNT 296 10x3/uL (130-400); RBC 5.46 10x6/uL (4.20-6.10); RDW 12.9 % (11.5-14.5)
[2019-02-22 07:08] LABS: WBC 7.6 10x3/uL (4.8-10.8)
[2019-02-22 07:47] LABS: ALKALINE PHOSPHATASE 49 U/L (46-116); CALC OSMOLALITY 263 mosm/kg (275-300); CALCIUM 9.2 mg/dL (8.5-10.1); CHLORIDE - SERUM 91 mmol/L (98-107); CREATININE - SERUM 0.9 mg/dL (0.6-1.3); GLUCOSE 96 mg/dL (74-106); MAGNESIUM - SERUM 1.8 mg/dL (1.8-2.4); PHOSPHOROUS 2.7 mg/dL (2.5-4.9); PROTEIN - SERUM 7.4 g/dL (6.4-8.2); SODIUM 131 mmol/L (136-145); UREA NITROGEN 14 mg/dL (7-18); eGFR NON AFRICAN AMERICAN > 90 mL/min (90-120)
[2019-02-22 07:50] LABS: ALBUMIN 3.8 g/dL (3.4-5.0); ALT (SGPT) 18 U/L (10-68)
[2019-02-22 08:45] VITALS: BP 142/86
[2019-02-22 12:00] VITALS: BP 126/78
[2019-02-22 16:30] VITALS: BP 137/87
[2019-02-22 20:31] VITALS: BP 114/66
[2019-02-23 04:59] VITALS: BP 120/80
[2019-02-23 05:08] LABS: HEMATOCRIT 44.7 % (42.0-54.0); HEMOGLOBIN 15.9 g/dL (13.5-17.5); LYMPHOCYTES 11.1 % (15-50); MCH 29.3 pg (26.0-34.0); MCHC 35.6 g/dL (31.0-37.0); MCV 82.5 fL (80.0-100.0); MEAN PLATELET VOLUME 9.4 fL (7.4-10.4); NEUTROPHILS 74.3 % (40-80); PLATELET COUNT 246 10x3/uL (130-400); RBC 5.42 10x6/uL (4.20-6.10); RDW 12.9 % (11.5-14.5); WBC 5.6 10x3/uL (4.8-10.8)
[2019-02-23 05:30] LABS: ALBUMIN 3.8 g/dL (3.4-5.0); ALKALINE PHOSPHATASE 53 U/L (46-116); ALT (SGPT) 19 U/L (10-68); BILIRUBIN - TOTAL 0.48 mg/dL (0.2-1.3); CALC OSMOLALITY 266 mosm/kg (275-300); CALCIUM 9.1 mg/dL (8.5-10.1); CHLORIDE - SERUM 95 mmol/L (98-107); GLUCOSE 90 mg/dL (74-106); POTASSIUM - SERUM 3.5 mmol/L (3.5-5.1); PROTEIN - SERUM 7.5 g/dL (6.4-8.2); SODIUM 132 mmol/L (136-145); UREA NITROGEN 17 mg/dL (7-18); eGFR NON AFRICAN AMERICAN > 90 mL/min (90-120)
[2019-02-23 09:13] VITALS: BP 120/77
[2019-02-23 13:56] VITALS: BP 120/81
[2019-02-23 14:08] VITALS: Ht 180.3 cm; Wt 77.1 kg
[2019-02-23 17:04] VITALS: BP 124/73
[2019-02-23 20:00] VITALS: BP 123/75
[2019-02-24 04:00] VITALS: BP 139/86
[2019-02-24 05:06] LABS: BASOPHILS 0.2 % (0-2); EOSINOPHILS 0.2 % (0-7); HEMATOCRIT 42.8 % (42.0-54.0); HEMOGLOBIN 15.6 g/dL (13.5-17.5); IMMATURE GRANULOCYTES 0.4 % (0-5); LYMPHOCYTES 24.5 % (15-50); MCH 29.7 pg (26.0-34.0); MCHC 36.4 g/dL (31.0-37.0); MCV 81.4 fL (80.0-100.0); MEAN PLATELET VOLUME 9.6 fL (7.4-10.4); MONOCYTES 11.9 % (2-11); NEUTROPHILS 62.8 % (40-80); PLATELET COUNT 211 10x3/uL (130-400); RBC 5.26 10x6/uL (4.20-6.10); RDW 12.6 % (11.5-14.5); WBC 4.8 10x3/uL (4.8-10.8)
[2019-02-24 05:16] LABS: ALBUMIN 3.3 g/dL (3.4-5.0); ALKALINE PHOSPHATASE 52 U/L (46-116); ALT (SGPT) 21 U/L (10-68); BILIRUBIN - TOTAL 0.47 mg/dL (0.2-1.3); CALC OSMOLALITY 265 mosm/kg (275-300); CALCIUM 8.7 mg/dL (8.5-10.1); CARBON DIOXIDE 30.3 mmol/L (21.0-32.0); CHLORIDE - SERUM 97 mmol/L (98-107); GLUCOSE 87 mg/dL (74-106); MAGNESIUM - SERUM 1.9 mg/dL (1.8-2.4); POTASSIUM - SERUM 3.2 mmol/L (3.5-5.1); PROTEIN - SERUM 6.9 g/dL (6.4-8.2); SODIUM 133 mmol/L (136-145); UREA NITROGEN 15 mg/dL (7-18); eGFR NON AFRICAN AMERICAN > 90 mL/min (90-120)
[2019-02-24 08:51] VITALS: BP 117/83
[2019-02-24 13:21] VITALS: BP 119/76
== END 2019-02-24 13:34 | disposition home or self-care (01) | DRG 392 ==
LOC: D.ER 10:26 → D.EDHOLD 13:34 → D.MS 13:34
PROVIDERS: Family Medicine; ADMIT Family Medicine; ATTEND Family Medicine
DX: R11.2 Nausea with vomiting, unspecified (principal); E87.3 Alkalosis; K31.84 Gastroparesis; E87.6 Hypokalemia

== ENCOUNTER 2019-03-10 18:04 | Inpatient (IN) | payer MEDICAID ==
[~2019-03-10] VITALS: Ht 180.3 cm; Wt 72.6 kg
[2019-03-10 19:17] LABS: HEMATOCRIT 53.4 % (42.0-54.0); HEMOGLOBIN 20.2 g/dL (13.5-17.5); MCH 29.7 pg (26.0-34.0); MCHC 37.8 g/dL (31.0-37.0); MCV 78.4 fL (80.0-100.0); MEAN PLATELET VOLUME 9.7 fL (7.4-10.4); RDW 12.4 % (11.5-14.5); WBC 13.5 10x3/uL (4.8-10.8)
[2019-03-10 19:27] LABS: ALBUMIN 5.4 g/dL (3.4-5.0); BILIRUBIN - TOTAL 1.46 mg/dL (0.2-1.3); CALCIUM 10.9 mg/dL (8.5-10.1); CREATININE - SERUM 1.3 mg/dL (0.6-1.3); PROTEIN - SERUM 9.2 g/dL (6.4-8.2)
[2019-03-10 19:53] LABS: PLATELET COUNT 502 10x3/uL (130-400); RBC 6.81 10x6/uL (4.20-6.10)
[2019-03-10 19:55] LABS: ANION GAP 11.8 mmol/L (8-16); CARBON DIOXIDE 43.7 mmol/L (21.0-32.0); POTASSIUM - SERUM 2.5 mmol/L (3.5-5.1)
[2019-03-10 20:25] LABS: APPEARANCE CLEAR (CLEAR); BILIRUBIN NEGATIVE (NEGATIVE); COLOR YELLOW (YELLOW); GLUCOSE NEGATIVE (NEGATIVE); KETONE MODERATE mg/dL (NEGATIVE); NITRITE NEGATIVE (NEGATIVE); PROTEIN 1+ mg/dL (NEGATIVE); UROBILINOGEN NORMAL (NORMAL)
[2019-03-10 20:25] LABS: EOSINOPHILS 1 % (0-7); LYMPHOCYTES 13 % (15-50); MONOCYTES 4 % (2-11); NEUTROPHILS 82 % (40-80); PLATELET ESTIMATE INCREASED
--- NOTE | 2019-03-10 23:00 | NUR ---
RECIEVED TO ROOM. ALERT ORIENTED. NO COMPLAITNS AT PRESENT. IV INFUSING TO RAC WIHTOUT REDNESS OR EDEMA NOTED. ORIENTED TO ROOM. CL IN REACH
[2019-03-11] VITALS (7 sets, daily range): BP systolic 104–136; BP diastolic 61–88; Ht 180.3 cm; Wt 72.6 kg
--- NOTE | 2019-03-11 03:54 | NUR ---
I have reviewed this patient and I concur with the Shift Assessment completed by the Licensed Practical Nurse today this shift.
[2019-03-11 06:37] LABS: BASOPHILS 0 % (0-2); EOSINOPHILS 0 % (0-7); HEMATOCRIT 46.3 % (42.0-54.0); HEMOGLOBIN 17.3 g/dL (13.5-17.5); IMMATURE GRANULOCYTES 0.2 % (0-5); LYMPHOCYTES 8.6 % (15-50); MCHC 37.4 g/dL (31.0-37.0); MCV 80.2 fL (80.0-100.0); MEAN PLATELET VOLUME 9.9 fL (7.4-10.4); MONOCYTES 16.4 % (2-11); NEUTROPHILS 74.8 % (40-80); PLATELET COUNT 424 10x3/uL (130-400); RBC 5.77 10x6/uL (4.20-6.10); RDW 12.4 % (11.5-14.5); WBC 11.4 10x3/uL (4.8-10.8)
[2019-03-11 07:58] LABS: ALBUMIN 4.1 g/dL (3.4-5.0); ALKALINE PHOSPHATASE 50 U/L (46-116); ALT (SGPT) 18 U/L (10-68); BILIRUBIN - TOTAL 1.12 mg/dL (0.2-1.3); CALC OSMOLALITY 260 mosm/kg (275-300); CALCIUM 9.4 mg/dL (8.5-10.1); CARBON DIOXIDE 38.3 mmol/L (21.0-32.0); CHLORIDE - SERUM 86 mmol/L (98-107); CREATININE - SERUM 1.2 mg/dL (0.6-1.3); GLUCOSE 95 mg/dL (74-106); MAGNESIUM - SERUM 2.3 mg/dL (1.8-2.4); PROTEIN - SERUM 7.3 g/dL (6.4-8.2); SODIUM 128 mmol/L (136-145); UREA NITROGEN 25 mg/dL (7-18); eGFR NON AFRICAN AMERICAN 80 mL/min (90-120)
--- NOTE | 2019-03-11 08:01 | NUR ---
AAOX4. ON ROOM AIR, IV TO RIGHT AC NS WITH 40MEQ OF K AT 200ML/HR. IV TO LEFT AC SALINE LOCKED, EMESIS 300 CLEAR LIQUID. C/O NAUSEA, DENIES ANY OTHER NEEDS OR DISCOMFORTS, BED LOWERED AND LOCKED, CALL LIGHT WITHIN REACH. CPOC
[2019-03-11 16:39] LABS: UDS - AMPHET NEGATIVE QUAL (NEGATIVE); UDS - BARB NEGATIVE QUAL (NEGATIVE); UDS - BENZO NEGATIVE QUAL (NEGATIVE); UDS - COCAINE NEGATIVE QUAL (NEGATIVE); UDS - OPIATE NEGATIVE QUAL (NEGATIVE); UDS - PCP NEGATIVE QUAL (NEGATIVE); UDS - THC POSITIVE QUAL (NEGATIVE)
--- NOTE | 2019-03-11 20:25 | NUR ---
EYES CLOSED. RESP EVEN AND UNALBORED. NO DISTRESS NOTED. IV INFUSING TO RAC WITHOUT REDNESS OR EDEMA NOTED. CL IN REACH
--- NOTE | 2019-03-11 23:31 | NUR ---
I have reviewed this patient and I concur with the Shift Assessment completed by the Licensed Practical Nurse today this shift.
[2019-03-12 05:02] VITALS: BP 106/74
[2019-03-12 05:40] LABS: BASOPHILS 0.1 % (0-2); EOSINOPHILS 0.5 % (0-7); HEMATOCRIT 40.5 % (42.0-54.0); HEMOGLOBIN 14.7 g/dL (13.5-17.5); IMMATURE GRANULOCYTES 0.3 % (0-5); LYMPHOCYTES 28.2 % (15-50); MCH 29.6 pg (26.0-34.0); MCHC 36.3 g/dL (31.0-37.0); MCV 81.5 fL (80.0-100.0); MEAN PLATELET VOLUME 9.8 fL (7.4-10.4); MONOCYTES 12.1 % (2-11); NEUTROPHILS 58.8 % (40-80); RBC 4.97 10x6/uL (4.20-6.10); RDW 12.4 % (11.5-14.5); WBC 7.4 10x3/uL (4.8-10.8)
[2019-03-12 05:41] LABS: PLATELET COUNT 305 10x3/uL (130-400)
[2019-03-12 05:54] LABS: CALC OSMOLALITY 267 mosm/kg (275-300); CALCIUM 8.7 mg/dL (8.5-10.1); CARBON DIOXIDE 29.9 mmol/L (21.0-32.0); CHLORIDE - SERUM 98 mmol/L (98-107); GLUCOSE 75 mg/dL (74-106); SODIUM 133 mmol/L (136-145); THYROID STIMULATING HORMONE 0.95 uIU/mL (0.36-3.74); UREA NITROGEN 21 mg/dL (7-18); eGFR NON AFRICAN AMERICAN > 90 mL/min (90-120)
[2019-03-12 05:56] LABS: POTASSIUM - SERUM 3.9 mmol/L (3.5-5.1)
--- NOTE | 2019-03-12 07:59 | NUR ---
PATIENT IN BED WITH IV INTACT. NO COMPLAINTS AT THIS TIME. NOTIFIED PATIENT OF STOOL SAMPLE NEEDED. VERBALIZED UNDERSTANDING. CALL LIGHT WITHIN REACH.
[2019-03-12 09:30] VITALS: BP 113/72
[2019-03-12 12:45] VITALS: BP 126/77
--- NOTE | 2019-03-12 13:00 | NUR ---
PATIENT IV IN LEFT FA REMOVED PER PATIENT REQUEST. RIGHT AC IV WORKING WITH NO PROBLEMS. CALL LIGHT WITHINR EACH.
[2019-03-12 17:11] VITALS: BP 116/68
--- NOTE | 2019-03-12 19:43 | NUR ---
PATIENT IN BED WITH IV INTACT. NO COMPLAINTS OR SIGNS OF DISTRESS. CALL LIGHTW ITHIN REACH.
[2019-03-12 20:02] VITALS: BP 107/67
--- NOTE | 2019-03-12 20:05 | NUR ---
AWAKE,ALERT.NO COMPLAINTS VOICED. IV INFUSING TO RAC WITHOUT REDNESS OR EDEMA NOTED. CL IN REACH. VISITORS AT BEDSIDE.
[2019-03-13] VITALS: BP 94/57
--- NOTE | 2019-03-13 00:26 | NUR ---
I have reviewed this patient and I concur with the Shift Assessment completed by the Licensed Practical Nurse today this shift.
[2019-03-13 04:00] VITALS: BP 103/58
[2019-03-13 06:17] LABS: BASOPHILS 0.3 % (0-2); EOSINOPHILS 2.5 % (0-7); HEMATOCRIT 39.5 % (42.0-54.0); IMMATURE GRANULOCYTES 0.4 % (0-5); LYMPHOCYTES 36.1 % (15-50); MCH 28.9 pg (26.0-34.0); MCHC 35.4 g/dL (31.0-37.0); MCV 81.6 fL (80.0-100.0); MEAN PLATELET VOLUME 9.8 fL (7.4-10.4); MONOCYTES 9.2 % (2-11); NEUTROPHILS 51.5 % (40-80); PLATELET COUNT 327 10x3/uL (130-400); RBC 4.84 10x6/uL (4.20-6.10); RDW 12.3 % (11.5-14.5); WBC 7.9 10x3/uL (4.8-10.8)
[2019-03-13 06:39] LABS: CALC OSMOLALITY 262 mosm/kg (275-300); CALCIUM 8.8 mg/dL (8.5-10.1); CARBON DIOXIDE 26.4 mmol/L (21.0-32.0); CHLORIDE - SERUM 97 mmol/L (98-107); GLUCOSE 88 mg/dL (74-106); POTASSIUM - SERUM 4.2 mmol/L (3.5-5.1); SODIUM 131 mmol/L (136-145); UREA NITROGEN 16 mg/dL (7-18); eGFR NON AFRICAN AMERICAN > 90 mL/min (90-120)
[2019-03-13 08:40] VITALS: BP 113/74
--- NOTE | 2019-03-13 10:11 | NUR ---
PT RESTING IN BED. NO SIGNS OF DISTRESS. IV TO RIGHT AC PATENT NO REDNESS OR TENDERNESS. DENIES ANY FUTHER NEED AT THIS TIME. CALL LIGHT IN REACH. BED LOW POSITION. NO FAMILY AT BEDSIDE AT THIS TIME.
--- NOTE | 2019-03-13 12:58 | MORECARE ---
CASE MANAGEMENT DISCHARGE SUMMARY PATIENT: DARRELL PENN UNIT: [id number] ADM DATE: 03/11/19 AGE: 23 : [birth year] SEX: M ROOM/BED: D.2231 AUTHOR: MALKA SHERMAN PHYSICIAN: REFERRING PHYSICIAN: PETTY ADEN MD DATE OF SERVICE: 03/13/19 Discharge Plan Patient Name: DARRELL PENN [facility] : 1995 Planned Disposition: Home Anticipated Discharge Date: 03/13/19 Discharge Date: Expected LOS: 2 Initial Reviewer: [email or web address] Initial Review Date: 03/13/2019 Generated: 03/13/19 1:58 pm DCPIA - Discharge Planning Initial Assessment Updated by [email or web address]: Parris Baez on 03/13/19 12:58 pm * Is the patient Alert and Oriented? Yes * How many steps to enter\exit or inside your home? 3/0 * PCP Dr. Aden * Pharmacy [facility] * Preadmission Environment Home with Family * ADLs Independent * Equipment None * List name and contact numbers for known caregivers / representatives who currently or will assist patient after discharge: Rafaela Liban - [phone] * Verbal permission to speak to the caregivers and representatives has been obtained from the patient. Yes * Community resources currently utilized None * Additional services required to return to the preadmission environment? No * Can the patient safely return to the preadmission environment? Yes * Has this patient been hospitalized within the prior 30 days at any hospital? Yes Patient Name: DARRELL PENN Page [phone] at 1258 All edits/amendments must be made on the electronic document DICTATION DATE: 03/13/19 1258 CITY LIBRARY DIRECTOR: DARYL 03/13/19 1258 RPT#: [id number] DC DATE: STATUS: ADM IN [facility] [address] [place] [address] END OF REPORT
--- NOTE | 2019-03-13 13:05 | MORECARE ---
CASE MANAGEMENT DISCHARGE SUMMARY PATIENT: DARRELL PENN UNIT: [id number] ADM DATE: 03/11/19 AGE: 23 : [birth year] SEX: M ROOM/BED: D.2231 AUTHOR: WHITDOC PHYSICIAN: REFERRING PHYSICIAN: PETTY ADEN MD DATE OF SERVICE: 03/13/19 Discharge Plan Patient Name: DARRELL PENN Facility: [facility]:[place] : 1995 Planned Disposition: Home Anticipated Discharge Date: 03/13/19 Discharge Date: Expected LOS: 2 Initial Reviewer: [email or web address] Initial Review Date: 03/13/2019 Generated: 03/13/19 2:04 pm Comments DCP- Discharge Planning Updated by [email or web address]: Parris Baez on 03/13/19 12:[address] Patient Name: DRARELL PENN Admission Status: ER Accout number: [id number] Admission Date: 03-11-2019 : 1995 Admission Diagnosis: Attending: PETTY ADEN Current LOS: 2 Anticipated DC Date: 03-13-2019 Planned Disposition: Home Primary Insurance: MEDICAID [place] Discharge Planning Comments: CM met with patient to complete initial dc planning assessment. CM educated patient on the CM role and verbal consent given by patient to complete assessment. Patient lives at home with his girlfriend and 2 room mates. States his girlfriend will take him home on discharge. At discharge patient plans to return and feels this is a safe discharge. CM discussed availability of home health, rehab services, and medical equipment. Patient denied known discharge needs at this time. CM will continue to follow and will assist as needed with dc plans/needs. Backside Grinder: Parris Baez DCPIA - Discharge Planning Initial Assessment Updated by [email or web address]: Parris Baez on 03/13/19 12:58 pm * Is the patient Alert and Oriented? Yes * How many steps to enter\exit or inside your home? 3/0 * PCP Dr. Aden * Pharmacy [facility] [address] * Preadmission Environment Home with Family * ADLs Independent * Equipment None * List name and contact numbers for known caregivers / representatives who currently or will assist patient after discharge: Rafaela Louie - [phone] * Verbal permission to speak to the caregivers and representatives has been obtained from the patient. Yes * Community resources currently utilized None * Additional services required to return to the preadmission environment? No * Can the patient safely return to the preadmission environment? Yes * Has this patient been hospitalized within the prior 30 days at any hospital? Yes Last DP export: 03/13/19 11:58 a Patient Name: DARRELL PENN Page 90070 at 1305 All edits/amendments must be made on the electronic document DICTATION DATE: 03/13/19 1304 EMERGENCY DEPARTMENT RN: DARYL 03/13/19 1304 RPT#: [id number] DC DATE: STATUS: ADM IN [facility] [address] [place] [address] END OF REPORT
[2019-03-13 13:16] VITALS: BP 112/59
--- NOTE | 2019-03-13 16:15 | NUR ---
DISCHARGED INSTRUCTIONS GIVEN. SEEMS TO UNDERSTAND INSTRUCTIONS. IV TIP INTACT. NO SIGNS OF DISTRESS. DENIES ANY NEED LEFT WITH HOSPITAL STAFF TO GO HOME IN PERSONAL RIDE.
[2019-03-16 17:08] LABS: OVA + PARASITE EXAM Final report (())
== END 2019-03-13 16:16 | disposition home or self-care (01) | DRG 103 ==
LOC: D.ER 18:04 → OBSVTIME 21:27 → D.MS 21:27
PROVIDERS: Family Medicine; Internal Medicine Gastroenterology; ADMIT Internal Medicine Nephrology; ATTEND Internal Medicine Nephrology
DX: G43.A0 Cyclical vomiting, in migraine, not intractable (principal); E87.1 Hypo-osmolality and hyponatremia; K31.84 Gastroparesis; E87.6 Hypokalemia; T40.7X5A Adverse effect of cannabis (derivatives), initial encounter; E86.0 Dehydration; Z87.891 Personal history of nicotine dependence

== ENCOUNTER 2019-03-31 20:10 | Emergency (ER) | payer MEDICAID ==
[~2019-03-31] VITALS: Ht 180.3 cm; Wt 77.3 kg
[2019-03-31 20:28] VITALS: Ht 180.3 cm; Wt 77.3 kg
[2019-03-31 21:15] LABS: BASOPHILS 0.1 % (0-2); EOSINOPHILS 0 % (0-7); HEMATOCRIT 43.5 % (42.0-54.0); HEMOGLOBIN 15.8 g/dL (13.5-17.5); IMMATURE GRANULOCYTES 0.3 % (0-5); LYMPHOCYTES 3.9 % (15-50); MCH 29.6 pg (26.0-34.0); MCHC 36.3 g/dL (31.0-37.0); MCV 81.5 fL (80.0-100.0); MEAN PLATELET VOLUME 9.4 fL (7.4-10.4); MONOCYTES 3.8 % (2-11); NEUTROPHILS 91.9 % (40-80); PLATELET COUNT 368 10x3/uL (130-400); RBC 5.34 10x6/uL (4.20-6.10); RDW 13.2 % (11.5-14.5); WBC 12.7 10x3/uL (4.8-10.8)
[2019-03-31 21:28] LABS: ALBUMIN 4.7 g/dL (3.4-5.0); ALKALINE PHOSPHATASE 50 U/L (46-116); ALT (SGPT) 22 U/L (10-68); AMYLASE - SERUM 81 U/L (25-115); BILIRUBIN - TOTAL 0.58 mg/dL (0.2-1.3); CALC OSMOLALITY 281 mosm/kg (275-300); CALCIUM 10.1 mg/dL (8.5-10.1); CARBON DIOXIDE 29.1 mmol/L (21.0-32.0); CHLORIDE - SERUM 99 mmol/L (98-107); CREATININE - SERUM 0.9 mg/dL (0.6-1.3); GLUCOSE 126 mg/dL (74-106); LIPASE 91 U/L (73-393); POTASSIUM - SERUM 3.8 mmol/L (3.5-5.1); PROTEIN - SERUM 8.6 g/dL (6.4-8.2); SODIUM 140 mmol/L (136-145); UREA NITROGEN 15 mg/dL (7-18); eGFR NON AFRICAN AMERICAN > 90 mL/min (90-120)
[2019-03-31] MEDS ORDERED: ZOFRAN8 MG PO (22:45)
[2019-04-01 00:37] VITALS: BP 125/74
== END 2019-04-01 00:38 | disposition home or self-care (01) ==
LOC: D.ER 20:10
PROVIDERS: Family Medicine
DX: K52.9 Noninfective gastroenteritis and colitis, unspecified (principal)

== ENCOUNTER 2019-04-03 17:27 | Emergency (ER) | payer MEDICAID ==
[~2019-04-03] VITALS: Ht 180.3 cm; Wt 77.3 kg
[~2019-04-03 17:27] MED LIST changes: +ZOFRAN8 MG PO
[2019-04-03 17:29] VITALS: Ht 180.3 cm; Wt 77.3 kg
[2019-04-03 18:43] LABS: BASOPHILS 0.1 % (0-2); EOSINOPHILS 0 % (0-7); HEMATOCRIT 47.7 % (42.0-54.0); HEMOGLOBIN 18.1 g/dL (13.5-17.5); IMMATURE GRANULOCYTES 0.2 % (0-5); LYMPHOCYTES 9.9 % (15-50); MCH 29.6 pg (26.0-34.0); MCHC 37.9 g/dL (31.0-37.0); MCV 78.1 fL (80.0-100.0); MONOCYTES 15.3 % (2-11); NEUTROPHILS 74.5 % (40-80); RBC 6.11 10x6/uL (4.20-6.10); RDW 12.7 % (11.5-14.5); WBC 10.5 10x3/uL (4.8-10.8)
[2019-04-03 18:50] LABS: ALBUMIN 5.1 g/dL (3.4-5.0); ALKALINE PHOSPHATASE 61 U/L (46-116); ALT (SGPT) 16 U/L (10-68); AMYLASE - SERUM 79 U/L (25-115); BILIRUBIN - TOTAL 1.22 mg/dL (0.2-1.3); CALC OSMOLALITY 255 mosm/kg (275-300); CALCIUM 10.4 mg/dL (8.5-10.1); CARBON DIOXIDE 38.4 mmol/L (21.0-32.0); CREATININE - SERUM 1.1 mg/dL (0.6-1.3); GLUCOSE 94 mg/dL (74-106); LIPASE 81 U/L (73-393); MAGNESIUM - SERUM 2.1 mg/dL (1.8-2.4); PROTEIN - SERUM 9.4 g/dL (6.4-8.2); SODIUM 125 mmol/L (136-145); UREA NITROGEN 23 mg/dL (7-18); eGFR NON AFRICAN AMERICAN 89 mL/min (90-120)
[2019-04-03 18:55] LABS: CHLORIDE - SERUM 77 mmol/L (98-107); POTASSIUM - SERUM 2.1 mmol/L (3.5-5.1)
[2019-04-03 19:00] LABS: PLATELET COUNT 469 10x3/uL (130-400)
[2019-04-03 22:48] VITALS: BP 122/85
== END 2019-04-03 22:50 | disposition home or self-care (01) ==
LOC: D.ER 17:27
PROVIDERS: Family Medicine
DX: K31.84 Gastroparesis (principal); E87.6 Hypokalemia

== ENCOUNTER 2019-05-07 13:10 | Inpatient (IN) | payer MEDICAID ==
[2019-05-07] VITALS (8 sets, daily range): BP systolic 121–154; BP diastolic 62–92; BMI 22.3
[~2019-05-07] VITALS: Ht 180.3 cm; Wt 72.6 kg
--- NOTE | ~2019-05-07 | HEMODYNAMI ---
PATIENT:DARRELL PENN MEDICAL RECORD: [id number] : [birth year] LOCATION: D.2238 ADMISSION DATE: 05/07/19 Generatedon:05/08/201915:11 Patient name: DARRELL PENN Patient #: [id number] SSN: : 1995 Date of study: 05/08/2019 Page: Of Hemodynamic Procedure Report Patient Data Patient Demographics Procedure consent was obtained First Name: DARRELL Gender: Male Last Name: FILI : 1995 Patient #: [id number] Age: 23 year(s) Race: Unknown Additional ID: [id number] Contact details Address: [address] [place] [address] [place]: [place] [facility] [place]: [address] Admission Admission Data Admission Date: 05/07/2019 Admission Time: 16:34 Room #: D.2238 Procedure Procedure Types Cath Procedure Peripheral Cath Diagnostic Procedure Miscellaneous Procedure Description Procedure Date Procedure Date: 05/08/2019 Procedure Start Time: 15:02 Procedure Staff Name Function Miquel Garcia MD Performing Physician Gurdeep Montano RT Monitor Jessica Pacheco RN Nurse HEIDI CAMEJO RT Scrub Procedure Data Cath Procedure Fluoroscopy Diagnostic fluoroscopy Total fluoroscopy Time: 0.1 time: 0.1 min min Diagnostic fluoroscopy Total fluoroscopy dose: 2 dose: 2 mGy mGy Hemodynamics Rest Pre Cath Intra NCS Post Cath Procedure Log Time Note 14:48:18 Time tracking: Regular hours (M-F 7:00 - 5:00) 14:48:20 Gurdeep Montano RT (R) (CV) sent for patient. Start room use. 14:48:33 Patient received from Med/Surg to IR Alert and oriented. Tansferred to table in Supine position. 14:48:36 Signed procedure consent form obtained from patient. 14:48:37 Pre-procedure instructions explained to patient. 14:48:39 Use device set IR Diagnostic 14:48:41 Bag Decanter ([id number]) opened to sterile field. 14:48:41 Sterile Angiographic Pack opened to sterile field. 14:48:51 Pre-op teaching completed and patient verbalized understanding. 14:48:53 Patient NPO since Midnight. 14:49:07 Right Arm area was prepped with chlora-prep and draped in sterile fashion 15:01:53 --------ALL STOP TIME OUT------ 15:01:54 Final Timeout: patient, procedure, and site verified with staff and physician. All members of the team are in agreement. 15:01:59 Sedation plan: Local Anesthetic Medication:Lidocaine 15:02:02 Sharps counted by scrub and verified by R.N. 15:02:16 Procedure started. 15:02:16 Full Disclosure recording started 15:02:24 Local anesthetic to right arm with Lidocaine 1% by Miquel Garcia MD.INITIAL ACCESS ONLY 15:02:35 PowerPICC 5Fr double lumen catheter opened to sterile field. 15:02:51 SHIELD Sorbaview ([id number]) opened to sterile field. 15:04:22 Venous access obtained using ultrasound guidance. 15:08:22 PICC line was trimmed to 44cm and advanced to the superior vena cava.Position verified under fluoroscopy. 15:08:29 Procedure ended.(Physican Out) 15:10:03 Fluoroscopy time 00.10 minutes. 15:10:06 Fluoroscopy dose: 2 mGy 15:10:06 Flurop Dose total: 2 15:10:09 Insertion/operative site no bleeding no hematoma. 15:10:28 sorbawiew and statlock applied 15:10:33 Report given to Med/Surg. 15:10:47 Patient transfered to Med/Surg with Bed. Device Usage Item Name Manufacture Quantity Catalog Hospital Part Current Minimal Lot# / Number Charge Number Stock Stock Serial# Code Bag Decanter Microtek 1 [id number] () [employer]. Sterile Cardinal 1 [id number] 5 Angiographic Health Pack PowerPICC Bard 1 [id number] [id number] 5 5Fr double lumen catheter SHIELD Centurion 1 [id number] [id number] 5 Sorbaview ([id number]) Signature Audit [place] Stage Time Signature Unsigned Intra-Procedure 05/08/2019 Gurdeep 3:11:03 PM Shuffield RT (R) (CV) Signatures Monitor : Gurdeep Signature : Dusty RT Date : Time : [address] [place] [address]
[2019-05-07 14:03] LABS: ALBUMIN 4.5 g/dL (3.4-5.0); BILIRUBIN - TOTAL 0.84 mg/dL (0.2-1.3); CALCIUM 10.4 mg/dL (8.5-10.1); CREATININE - SERUM 1.3 mg/dL (0.6-1.3); PROTEIN - SERUM 8.5 g/dL (6.4-8.2); TROPONIN-I 0.038 ng/mL (0.000-0.060)
[2019-05-07 14:11] LABS: ANION GAP 6.1 mmol/L (8-16); BASOPHILS 0.1 % (0-2); EOSINOPHILS 0.2 % (0-7); HEMATOCRIT 49.7 % (42.0-54.0); HEMOGLOBIN 19.6 g/dL (13.5-17.5); IMMATURE GRANULOCYTES 0.4 % (0-5); LYMPHOCYTES 12.7 % (15-50); MCH 30.1 pg (26.0-34.0); MCHC 39.4 g/dL (31.0-37.0); MCV 76.2 fL (80.0-100.0); MEAN PLATELET VOLUME 9.7 fL (7.4-10.4); MONOCYTES 12.1 % (2-11); NEUTROPHILS 74.5 % (40-80); PLATELET COUNT 507 10x3/uL (130-400); RDW 12.8 % (11.5-14.5); WBC 14.3 10x3/uL (4.8-10.8)
[2019-05-07 14:14] LABS: CARBON DIOXIDE 46.6 mmol/L (21.0-32.0); POTASSIUM - SERUM 1.7 mmol/L (3.5-5.1)
[2019-05-07 14:26] LABS: RBC 6.52 10x6/uL (4.20-6.10)
--- NOTE | 2019-05-07 14:45 | NUR ---
LANIE RAMIREZ AT . ORDER FOR NS @ 125 ML/HR. ASKED IF PT NEEDED 1LITER BOLUS AND GAVE VERBAL ORDER TO GIVE 1ST LITER W/O THEN 2ND LITER @ 125ML/HR.
--- NOTE | 2019-05-07 17:05 | NUR ---
PT SLEEPING WITH QUIET RESP. O2 SATS 84-88% ON RA. AROUSES EASILY WHEN NAME CALLED. DENIES PAIN. O2 PLACED @ 2 L PNC AND SATS QUICKLY IMPROVED TO 95%
--- NOTE | 2019-05-07 17:30 | NUR ---
CONT TO SLEEP QUIETLY WITHOUT C/O OR NEED. NO NAUSEA OR VOMITING NOTED
--- NOTE | 2019-05-07 18:21 | NUR ---
REPORT CALLED TO NAINA KELLY BY SBAR FORMAT
--- NOTE | 2019-05-07 18:31 | NUR ---
TRANSPORTED TO FLOOR ROOM #2238, CONDITION STABLE. NS AND POTASSIUM INFUSING VIA PUMP
--- NOTE | 2019-05-07 19:30 | NUR ---
RESTING IN BED RESP SHALLOW O2 IN USE, IV INFUSING WITHOUT DIFFICULTY POTASSIUM RIDER INFUSING, AROUSES EASILY DENIES NAUSEA OR PAIN, RETURTS TO SLEEP, SEE ADMISSION ASSESSMENT, CALL LIGHT IN REACH, INSTRUCTED NO WATER CAN HAVE SPRITE OR JUICES ONLY, AND TO VOID IN URINAL SO CAN MEASURE OUT PUT, STATES OK
[2019-05-07 22:02] LABS: CALC OSMOLALITY 251 mosm/kg (275-300); CALCIUM 9.2 mg/dL (8.5-10.1); CREATININE - SERUM 1.1 mg/dL (0.6-1.3); GLUCOSE 97 mg/dL (74-106); SODIUM 123 mmol/L (136-145); UREA NITROGEN 25 mg/dL (7-18); eGFR NON AFRICAN AMERICAN 89 mL/min (90-120)
[2019-05-07 22:05] LABS: CARBON DIOXIDE 47.7 mmol/L (21.0-32.0); CHLORIDE - SERUM 78 mmol/L (98-107); POTASSIUM - SERUM 2.2 mmol/L (3.5-5.1)
[2019-05-08] VITALS: BP 111/69
[2019-05-08 01:41] LABS: CALC OSMOLALITY 258 mosm/kg (275-300); CALCIUM 9.2 mg/dL (8.5-10.1); CREATININE - SERUM 1.1 mg/dL (0.6-1.3); GLUCOSE 100 mg/dL (74-106); SODIUM 127 mmol/L (136-145); UREA NITROGEN 25 mg/dL (7-18); eGFR NON AFRICAN AMERICAN 89 mL/min (90-120)
[2019-05-08 01:45] LABS: CARBON DIOXIDE 46.7 mmol/L (21.0-32.0); CHLORIDE - SERUM 78 mmol/L (98-107); POTASSIUM - SERUM 2.7 mmol/L (3.5-5.1)
[2019-05-08 04:00] VITALS: BP 122/72
[2019-05-08 06:50] LABS: CALC OSMOLALITY 260 mosm/kg (275-300); CALCIUM 8.9 mg/dL (8.5-10.1); CREATININE - SERUM 1.1 mg/dL (0.6-1.3); GLUCOSE 98 mg/dL (74-106); SODIUM 128 mmol/L (136-145); UREA NITROGEN 25 mg/dL (7-18); eGFR NON AFRICAN AMERICAN 89 mL/min (90-120)
[2019-05-08 07:06] LABS: CARBON DIOXIDE 42.7 mmol/L (21.0-32.0); CHLORIDE - SERUM 83 mmol/L (98-107); POTASSIUM - SERUM 2.7 mmol/L (3.5-5.1)
[2019-05-08 07:15] LABS: BASOPHILS 0.1 % (0-2); EOSINOPHILS 0.5 % (0-7); HEMATOCRIT 43.4 % (42.0-54.0); HEMOGLOBIN 16.5 g/dL (13.5-17.5); IMMATURE GRANULOCYTES 0.4 % (0-5); LYMPHOCYTES 19.4 % (15-50); MCH 30.2 pg (26.0-34.0); MEAN PLATELET VOLUME 9.8 fL (7.4-10.4); MONOCYTES 14.2 % (2-11); NEUTROPHILS 65.4 % (40-80); PLATELET COUNT 436 10x3/uL (130-400); RBC 5.47 10x6/uL (4.20-6.10); RDW 12.6 % (11.5-14.5)
[2019-05-08 07:20] LABS: MCV 79.3 fL (80.0-100.0); WBC 9.5 10x3/uL (4.8-10.8)
[2019-05-08 08:29] VITALS: BP 123/72
[2019-05-08 11:46] LABS: APPEARANCE CLEAR (CLEAR); COLOR YELLOW (YELLOW)
[2019-05-08 11:47] LABS: BILIRUBIN NEGATIVE (NEGATIVE); GLUCOSE NEGATIVE (NEGATIVE); KETONE NEGATIVE (NEGATIVE); NITRITE NEGATIVE (NEGATIVE); PROTEIN NEGATIVE (NEGATIVE)
[2019-05-08 11:50] LABS: UDS - AMPHET NEGATIVE QUAL (NEGATIVE); UDS - BARB NEGATIVE QUAL (NEGATIVE); UDS - BENZO NEGATIVE QUAL (NEGATIVE); UDS - COCAINE NEGATIVE QUAL (NEGATIVE); UDS - OPIATE NEGATIVE QUAL (NEGATIVE); UDS - PCP NEGATIVE QUAL (NEGATIVE); UDS - THC POSITIVE QUAL (NEGATIVE)
[2019-05-08 14:18] VITALS: Ht 180.3 cm; Wt 72.6 kg
--- NOTE | 2019-05-08 14:48 | NUR ---
PATIENT GOING FOR PICC LINE PLACEMENT
--- NOTE | 2019-05-08 15:21 | NUR ---
PATIENT BACK FROM PICC LINE PROCEDURE. PICC LINE IS 44 SONOMETERS LONG. NO CO AT THIS TIME
--- NOTE | 2019-05-08 19:15 | NUR ---
RECEIVED CARE FROM DAY NURSE. UP IN BATHROOM. FAMILY REPORTS NO NEEDS AT THIS TIME.
[2019-05-08 21:13] VITALS: BP 128/75
--- NOTE | 2019-05-09 03:00 | NUR ---
I have reviewed this patient and I concur with the Shift Assessment completed by the Licensed Practical Nurse today this shift.
[2019-05-09 05:10] VITALS: BP 115/70
[2019-05-09 07:05] LABS: BASOPHILS 0.2 % (0-2); EOSINOPHILS 1.9 % (0-7); HEMATOCRIT 39.5 % (42.0-54.0); HEMOGLOBIN 14.1 g/dL (13.5-17.5); IMMATURE GRANULOCYTES 1.7 % (0-5); LYMPHOCYTES 29.7 % (15-50); MCHC 35.7 g/dL (31.0-37.0); MEAN PLATELET VOLUME 9.6 fL (7.4-10.4); MONOCYTES 11.4 % (2-11); NEUTROPHILS 55.1 % (40-80); RBC 4.86 10x6/uL (4.20-6.10); RDW 12.7 % (11.5-14.5); WBC 8.3 10x3/uL (4.8-10.8)
[2019-05-09 07:13] LABS: CALC OSMOLALITY 267 mosm/kg (275-300); CALCIUM 8.6 mg/dL (8.5-10.1); CARBON DIOXIDE 34.2 mmol/L (21.0-32.0); CHLORIDE - SERUM 96 mmol/L (98-107); CREATININE - SERUM 1.1 mg/dL (0.6-1.3); GLUCOSE 87 mg/dL (74-106); MCV 81.3 fL (80.0-100.0); PLATELET COUNT 347 10x3/uL (130-400); POTASSIUM - SERUM 3.1 mmol/L (3.5-5.1); SODIUM 134 mmol/L (136-145); eGFR NON AFRICAN AMERICAN 89 mL/min (90-120)
[2019-05-09 07:15] LABS: UREA NITROGEN 16 mg/dL (7-18)
[2019-05-09 08:45] VITALS: BP 137/82
[2019-05-09 12:41] VITALS: BP 115/68
--- NOTE | 2019-05-09 17:00 | NUR ---
PICC LINE REMOVED PER HOUSE SUPERVISON BAKARI MONACO TOLERATED W/O COMPLAINT PERIPHERAL IV REMOVED CATH TIP INTACT, DC INSTUCITONS GIVEN PT VERBALIZES UNDERSTANDING FAMILY AT BEDSIDE
--- NOTE | 2019-05-09 17:15 | NUR ---
LEAVING VIA AMBULATING VIA FAMILY VIA PRIVATE VECHILE IN STABLE CONDITION
== END 2019-05-09 17:46 | disposition home or self-care (01) | DRG 641 ==
LOC: D.ER 13:10 → D.MS 16:34
PROVIDERS: Family Medicine; Specialist; ADMIT Internal Medicine Nephrology; ATTEND Internal Medicine Nephrology
PROC: 05HY33Z Insertion of Infusion Device into Upper Vein, Percutaneous Approach (ICD-10-PCS; principal; 2019-05-08 14:45)
DX: E86.0 Dehydration (principal); K31.84 Gastroparesis; E87.1 Hypo-osmolality and hyponatremia; E87.6 Hypokalemia

== ENCOUNTER 2019-06-01 17:59 | Observation (INO) | payer MEDICAID ==
[~2019-06-01] VITALS: Ht 180.3 cm; Wt 77.1 kg
[2019-06-01 18:41] LABS: BASOPHILS 0 % (0-2); EOSINOPHILS 0 % (0-7); HEMOGLOBIN 17.4 g/dL (13.5-17.5); IMMATURE GRANULOCYTES 0.3 % (0-5); LYMPHOCYTES 9.1 % (15-50); MCH 30.5 pg (26.0-34.0); MCV 82.3 fL (80.0-100.0); MEAN PLATELET VOLUME 9.3 fL (7.4-10.4); MONOCYTES 7.8 % (2-11); NEUTROPHILS 82.8 % (40-80); RBC 5.71 10x6/uL (4.20-6.10); RDW 13.3 % (11.5-14.5); WBC 13.7 10x3/uL (4.8-10.8)
[2019-06-01 18:51] LABS: PLATELET COUNT 586 10x3/uL (130-400)
[2019-06-01 19:11] LABS: ALBUMIN 5.4 g/dL (3.4-5.0); ALKALINE PHOSPHATASE 62 U/L (46-116); ALT (SGPT) 25 U/L (10-68); AMYLASE - SERUM 84 U/L (25-115); BILIRUBIN - TOTAL 0.73 mg/dL (0.2-1.3); CALC OSMOLALITY 262 mosm/kg (275-300); CALCIUM 10.3 mg/dL (8.5-10.1); CARBON DIOXIDE 38.1 mmol/L (21.0-32.0); CREATININE - SERUM 1.1 mg/dL (0.6-1.3); GLUCOSE 107 mg/dL (74-106); LIPASE 80 U/L (73-393); PROTEIN - SERUM 9.8 g/dL (6.4-8.2); SODIUM 130 mmol/L (136-145); UREA NITROGEN 19 mg/dL (7-18); eGFR NON AFRICAN AMERICAN 89 mL/min (90-120)
--- NOTE | 2019-06-01 19:15 | NUR ---
REPORT RECIEVED FROM NAINA FONTENOT.
[2019-06-01 19:17] LABS: POTASSIUM - SERUM 2.7 mmol/L (3.5-5.1)
[2019-06-01 19:18] LABS: CHLORIDE - SERUM 80 mmol/L (98-107)
[2019-06-01 19:25] LABS: APPEARANCE CLEAR (CLEAR); BILIRUBIN NEGATIVE (NEGATIVE); COLOR YELLOW (YELLOW); GLUCOSE NEGATIVE (NEGATIVE); KETONE MODERATE mg/dL (NEGATIVE); NITRITE NEGATIVE (NEGATIVE); PROTEIN TRACE mg/dL (NEGATIVE); UROBILINOGEN NORMAL (NORMAL)
[2019-06-01 21:06] VITALS: BP 121/78; BMI 23.7
--- NOTE | 2019-06-02 00:45 | NUR ---
CALL TO TELEMTRY TO REQUEST MONITOR PER ORDER. FISHING TOOL SUPERVISOR STATES THAT THERE ARE NO MONITORS AVIALBLE RIGHT NOW AND PATIENT CAN BE ADDED TO WAIT LIST.
[2019-06-02 04:00] VITALS: BP 122/70
--- NOTE | 2019-06-02 04:45 | NUR ---
PATIENT HAS SLEPT MOST OF THE NIGHT. NO OTHER DISTRESS NOTED AT THIS TIME.
[2019-06-02 06:50] LABS: ALKALINE PHOSPHATASE 44 U/L (46-116); ALT (SGPT) 21 U/L (10-68); BILIRUBIN - TOTAL 0.72 mg/dL (0.2-1.3); CALC OSMOLALITY 276 mosm/kg (275-300); CARBON DIOXIDE 33.1 mmol/L (21.0-32.0); CHLORIDE - SERUM 94 mmol/L (98-107); GLUCOSE 79 mg/dL (74-106); MAGNESIUM - SERUM 1.9 mg/dL (1.8-2.4); SODIUM 138 mmol/L (136-145); UREA NITROGEN 18 mg/dL (7-18); eGFR NON AFRICAN AMERICAN > 90 mL/min (90-120)
[2019-06-02 06:53] LABS: ALBUMIN 3.9 g/dL (3.4-5.0); PROTEIN - SERUM 7.1 g/dL (6.4-8.2)
--- NOTE | 2019-06-02 07:00 | NUR ---
PT RESTING IN BED, DENIES ANY NEEDS AT THIS TIME, WILL CONT TO FOLLOW POC
[2019-06-02 07:36] LABS: UDS - AMPHET NEGATIVE QUAL (NEGATIVE); UDS - BARB NEGATIVE QUAL (NEGATIVE); UDS - BENZO NEGATIVE QUAL (NEGATIVE); UDS - COCAINE NEGATIVE QUAL (NEGATIVE); UDS - OPIATE NEGATIVE QUAL (NEGATIVE); UDS - PCP NEGATIVE QUAL (NEGATIVE); UDS - THC POSITIVE QUAL (NEGATIVE)
[2019-06-02 07:41] VITALS: BP 132/92
[2019-06-02 07:42] LABS: BASOPHILS 0.1 % (0-2); EOSINOPHILS 0.2 % (0-7); HEMATOCRIT 40.2 % (42.0-54.0); HEMOGLOBIN 14.6 g/dL (13.5-17.5); IMMATURE GRANULOCYTES 0.1 % (0-5); LYMPHOCYTES 20.5 % (15-50); MCH 30.4 pg (26.0-34.0); MCHC 36.3 g/dL (31.0-37.0); MCV 83.6 fL (80.0-100.0); MEAN PLATELET VOLUME 9.5 fL (7.4-10.4); MONOCYTES 14.5 % (2-11); NEUTROPHILS 64.6 % (40-80); RBC 4.81 10x6/uL (4.20-6.10); RDW 13.2 % (11.5-14.5)
[2019-06-02 07:51] LABS: PLATELET COUNT 410 10x3/uL (130-400); WBC 9.3 10x3/uL (4.8-10.8)
--- NOTE | 2019-06-02 11:32 | NUR ---
PT RESTING IN BED, DENIES ANY NEEDS AT THIS TIME, WILL CONT TO FOLLOW POC
[2019-06-02 11:55] VITALS: Ht 180.3 cm; Wt 77.1 kg
[2019-06-02 12:17] VITALS: BP 128/72
--- NOTE | 2019-06-02 16:35 | NUR ---
DISCHARGE INSTRUCTIONS REVIEWED WITH PT AND ALL QUESTIONS ANSWERED, PIV REMOVED WITH CATHETER TIP INTACT. PT CALLED HIS RIDE TO COME GET HIM. PT ASKED IF HE COULD GET SOME MORE ZOFRAN. PAGED AND APPROVAL GIVEN TO CALL IN ZOFRAN FOR PT.
--- NOTE | 2019-06-02 18:10 | NUR ---
PT STATES HIS GIRLFRIEND DOES NOT GET OFF WORK UNTIL 7PM THEN SHE CAN COME GET HIM
--- NOTE | 2019-06-02 19:05 | NUR ---
PT IN BED RESTING QUIETLY AROUSES TO DOOR OPENING PT DENIES NEEDS AT THIS TIME.
--- NOTE | 2019-06-02 19:39 | NUR ---
pt left floor at this time accompanied by family member. 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
== END 2019-06-02 19:41 | disposition home or self-care (01) ==
LOC: D.ER 17:59 → D.M3 20:07 → OBSVTIME 20:18 → D.M3 06-02 19:41
PROVIDERS: Emergency Medicine; Family Medicine; ADMIT Internal Medicine Nephrology; ATTEND Internal Medicine Nephrology
DX: K31.84 Gastroparesis (principal); E87.6 Hypokalemia; E87.1 Hypo-osmolality and hyponatremia; E83.52 Hypercalcemia; F12.988 Cannabis use, unspecified with other cannabis-induced disorder

== ENCOUNTER 2019-06-13 21:53 | Emergency (ER) | payer MEDICAID ==
[~2019-06-13] VITALS: Ht 180.3 cm; Wt 77.3 kg
[2019-06-13 22:19] VITALS: Ht 180.3 cm; Wt 77.3 kg
[2019-06-13 23:31] VITALS: BP 147/98
== END 2019-06-13 23:32 | disposition home or self-care (01) ==
LOC: D.ER 21:53
DX: S01.112A Laceration without foreign body of left eyelid and periocular area, initial encounter (principal); W20.8XXA Other cause of strike by thrown, projected or falling object, initial encounter; Y93.89 Activity, other specified; Y92.89 Other specified places as the place of occurrence of the external cause

== ENCOUNTER 2019-07-04 18:49 | Inpatient (IN) | payer MEDICAID ==
[~2019-07-04] VITALS: Ht 180.3 cm; Wt 72.6 kg
[2019-07-04 19:08] LABS: BASOPHILS 0 % (0-2); EOSINOPHILS 0 % (0-7); HEMATOCRIT 49.6 % (42.0-54.0); HEMOGLOBIN 19.1 g/dL (13.5-17.5); IMMATURE GRANULOCYTES 0.4 % (0-5); LYMPHOCYTES 6.5 % (15-50); MCH 31.2 pg (26.0-34.0); MCHC 38.5 g/dL (31.0-37.0); MEAN PLATELET VOLUME 9.6 fL (7.4-10.4); MONOCYTES 10.4 % (2-11); NEUTROPHILS 82.7 % (40-80); RBC 6.12 10x6/uL (4.20-6.10); RDW 12.9 % (11.5-14.5); WBC 18.4 10x3/uL (4.8-10.8)
[2019-07-04 19:09] LABS: PLATELET COUNT 585 10x3/uL (130-400)
[2019-07-04 19:10] LABS: APPEARANCE CLEAR (CLEAR); BILIRUBIN NEGATIVE (NEGATIVE); COLOR YELLOW (YELLOW); GLUCOSE NEGATIVE (NEGATIVE); KETONE NEGATIVE (NEGATIVE); NITRITE NEGATIVE (NEGATIVE); PROTEIN 2+ mg/dL (NEGATIVE); SPECIFIC GRAVITY 1.015 (1.005-1.020); UROBILINOGEN NORMAL (NORMAL)
[2019-07-04 19:21] LABS: ALBUMIN 5.7 g/dL (3.4-5.0); ANION GAP 8.9 mmol/L (8-16); BILIRUBIN - TOTAL 0.94 mg/dL (0.2-1.3); CALCIUM 10.7 mg/dL (8.5-10.1); CREATININE - SERUM 1.8 mg/dL (0.6-1.3); PROTEIN - SERUM 10.3 g/dL (6.4-8.2)
[2019-07-04 19:21] LABS: BACTERIA FEW /hpf (NONE SEEN); EPITHELIAL CELLS NSEEN /hpf (0-5); RED CELLS - URINE 0-5 /hpf (0-5); WHITE CELLS - URINE 0-5 /hpf (0-5)
[2019-07-04 19:22] LABS: HYALINE CAST RARE /lpf (NONE SEEN)
[2019-07-04 19:24] LABS: CARBON DIOXIDE 46.4 mmol/L (21.0-32.0); POTASSIUM - SERUM 2.3 mmol/L (3.5-5.1)
[2019-07-04 19:51] VITALS: BP 132/103
[2019-07-05 02:49] VITALS: BP 130/90; BMI 23.9
[2019-07-05 03:33] LABS: BASOPHILS 0.1 % (0-2); EOSINOPHILS 0 % (0-7); HEMATOCRIT 43.6 % (42.0-54.0); HEMOGLOBIN 16.6 g/dL (13.5-17.5); IMMATURE GRANULOCYTES 0.4 % (0-5); LYMPHOCYTES 5.4 % (15-50); MCH 30.7 pg (26.0-34.0); MCHC 38.1 g/dL (31.0-37.0); MCV 80.6 fL (80.0-100.0); MEAN PLATELET VOLUME 9.5 fL (7.4-10.4); MONOCYTES 14.5 % (2-11); NEUTROPHILS 79.6 % (40-80); RBC 5.41 10x6/uL (4.20-6.10); RDW 12.6 % (11.5-14.5); WBC 16.1 10x3/uL (4.8-10.8)
[2019-07-05 03:54] LABS: CALCIUM 10.2 mg/dL (8.5-10.1); CREATININE - SERUM 1.7 mg/dL (0.6-1.3)
[2019-07-05 03:56] LABS: CARBON DIOXIDE 40.6 mmol/L (21.0-32.0); POTASSIUM - SERUM 2.6 mmol/L (3.5-5.1)
[2019-07-05 03:57] LABS: PLATELET COUNT 455 10x3/uL (130-400)
[2019-07-05 04:00] VITALS: BP 122/64
[2019-07-05 07:35] LABS: ALBUMIN 4.6 g/dL (3.4-5.0); BILIRUBIN - TOTAL 1.19 mg/dL (0.2-1.3); CALCIUM 9.9 mg/dL (8.5-10.1); CARBON DIOXIDE 39.4 mmol/L (21.0-32.0); CREATININE - SERUM 1.8 mg/dL (0.6-1.3); MAGNESIUM - SERUM 2.1 mg/dL (1.8-2.4); PROTEIN - SERUM 8.3 g/dL (6.4-8.2)
[2019-07-05 07:41] LABS: ANION GAP 13.1 mmol/L (8-16); POTASSIUM - SERUM 2.5 mmol/L (3.5-5.1)
[2019-07-05 08:00] VITALS: BP 136/71
[2019-07-05 12:30] VITALS: BP 143/85
[2019-07-05 16:30] VITALS: BP 144/91
[2019-07-05 20:00] VITALS: BP 119/72
[2019-07-06 00:18] VITALS: BP 118/73
[2019-07-06 04:29] LABS: BASOPHILS 0 % (0-2); EOSINOPHILS 0 % (0-7); HEMATOCRIT 43.8 % (42.0-54.0); HEMOGLOBIN 16.5 g/dL (13.5-17.5); IMMATURE GRANULOCYTES 0.4 % (0-5); LYMPHOCYTES 11.5 % (15-50); MCH 30.2 pg (26.0-34.0); MCHC 37.7 g/dL (31.0-37.0); MCV 80.1 fL (80.0-100.0); MEAN PLATELET VOLUME 9.7 fL (7.4-10.4); MONOCYTES 12.6 % (2-11); NEUTROPHILS 75.5 % (40-80); PLATELET COUNT 437 10x3/uL (130-400); RBC 5.47 10x6/uL (4.20-6.10); RDW 12.4 % (11.5-14.5)
[2019-07-06 04:39] LABS: ANION GAP 14.5 mmol/L (8-16); CALCIUM 9.8 mg/dL (8.5-10.1); CARBON DIOXIDE 34.5 mmol/L (21.0-32.0); CREATININE - SERUM 1.9 mg/dL (0.6-1.3)
[2019-07-06 06:25] VITALS: BP 127/81
[2019-07-06 06:27] LABS: UDS - AMPHET NEGATIVE QUAL (NEGATIVE); UDS - BARB NEGATIVE QUAL (NEGATIVE); UDS - BENZO NEGATIVE QUAL (NEGATIVE); UDS - COCAINE NEGATIVE QUAL (NEGATIVE); UDS - OPIATE NEGATIVE QUAL (NEGATIVE); UDS - PCP NEGATIVE QUAL (NEGATIVE); UDS - THC POSITIVE QUAL (NEGATIVE)
[2019-07-06 08:43] VITALS: BP 127/87
[2019-07-06 10:18] VITALS: Ht 180.3 cm; Wt 72.6 kg
[2019-07-06 13:28] VITALS: BP 159/91
[2019-07-06 17:15] VITALS: BP 128/83
[2019-07-06 20:00] VITALS: BP 132/89
[2019-07-07 00:01] VITALS: BP 113/64
[2019-07-07 04:00] VITALS: BP 117/77
[2019-07-07 05:42] LABS: ANION GAP 11.5 mmol/L (8-16); CALCIUM 8.9 mg/dL (8.5-10.1); CARBON DIOXIDE 32.8 mmol/L (21.0-32.0); CREATININE - SERUM 1.7 mg/dL (0.6-1.3); POTASSIUM - SERUM 3.3 mmol/L (3.5-5.1)
[2019-07-07 05:49] LABS: BASOPHILS 0.1 % (0-2); EOSINOPHILS 0.8 % (0-7); HEMATOCRIT 39.1 % (42.0-54.0); HEMOGLOBIN 14.6 g/dL (13.5-17.5); IMMATURE GRANULOCYTES 0.7 % (0-5); LYMPHOCYTES 22.4 % (15-50); MCH 30.1 pg (26.0-34.0); MCHC 37.3 g/dL (31.0-37.0); MCV 80.6 fL (80.0-100.0); MEAN PLATELET VOLUME 9.5 fL (7.4-10.4); MONOCYTES 11.5 % (2-11); NEUTROPHILS 64.5 % (40-80); RBC 4.85 10x6/uL (4.20-6.10); RDW 12.4 % (11.5-14.5); WBC 8.5 10x3/uL (4.8-10.8)
[2019-07-07 05:51] LABS: PLATELET COUNT 348 10x3/uL (130-400)
[2019-07-07 09:47] VITALS: BP 133/74
[2019-07-07 12:34] VITALS: BP 127/76
[2019-07-07] MEDS ORDERED: Biaxin PO (16:08)
--- NOTE | 2019-07-07 16:39 | MORECARE ---
CASE MANAGEMENT DISCHARGE SUMMARY PATIENT: DARRELL PENN UNIT: [id number] ADM DATE: 07/04/19 AGE: 24 : [birth year] SEX: M ROOM/BED: D.2105 AUTHOR: MALKA SHERMAN PHYSICIAN: REFERRING PHYSICIAN: PETTY CASTORENA MD DATE OF SERVICE: 07/07/19 Discharge Plan Patient Name: DARRELL PENN [facility] [facility] 1995 Planned Disposition: Home Anticipated Discharge Date: 07/07/19 Discharge Date: Expected LOS: 3 Initial Reviewer: [email or web address] Initial Review Date: 07/07/2019 Generated: 07/07/19 5:38 pm DCPIA - Discharge Planning Initial Assessment Updated by [email or web address]: Yaniv Hernández on 07/07/19 4:38 pm * Is the patient Alert and Oriented? Yes * How many steps to enter\exit or inside your home? * PCP NONE [facility] * [facility] * Preadmission Environment Home with Family * ADLs Independent * Equipment None * Other Equipment NO MEDICAL EQUIPMENT PROVIDER PREFERENCE * List name and contact numbers for known caregivers / representatives who currently or will assist patient after discharge: GUERLINE POOL, GIRLFRIEND, * Verbal permission to speak to the caregivers and representatives has been obtained from the patient. Yes * Community resources currently utilized None * Please name any agencies selected above. NONE * Additional services required to return to the preadmission environment? No * Can the patient safely return to the preadmission environment? Yes * Has this patient been hospitalized within the prior 30 days at any hospital? No Patient Name: DARRELL PENN Page 39469 at 1639 All edits/amendments must be made on the electronic document DICTATION DATE: 07/07/198 FLATTENING PRESS OPERATOR: DARYL 07/07/191637 RPT#: [id number] DC DATE: STATUS: ADM IN [facility] [address] [place] [address] END OF REPORT
--- NOTE | 2019-07-07 16:47 | MORECARE ---
CASE MANAGEMENT DISCHARGE SUMMARY PATIENT: DARRELL PENN UNIT: [id number] ADM DATE: 07/04/19 AGE: 24 : [birth year] SEX: M ROOM/BED: D.2107 AUTHOR: WHIT,DOC PHYSICIAN: REFERRING PHYSICIAN: PETTY CASTORENA MD DATE OF SERVICE: 07/07/19 Discharge Plan Patient Name: DARRELL PENN Facility: [facility]:[place] : 1995 Planned Disposition: Home Anticipated Discharge Date: 07/07/19 Discharge Date: Expected LOS: 3 Initial Reviewer: [email or web address] Initial Review Date: 07/07/2019 Generated: 07/07/19 5:47 pm Comments DCP- Discharge Planning Updated by [email or web address]: Yaniv Hernández on 07/07/19 3:[address] Patient Name: DARRELL PENN Admission Status: ER Accout number: [id number] Admission Date: 07-04-2019 : 1995 Admission Diagnosis:ESOPHAGITIS, UNSPECIFIED Attending: PETTY CASTORENA Current LOS: 3 Anticipated DC Date: 07-07-2019 Planned Disposition: Home Primary Insurance: [place] [employer]IONS [place] Discharge Planning Comments: CM SPOKE TO BEDSIDE NURSE WHO REQUESTED CM FAX EXCUSE TO THE COURT PT HAS COURT HEARING TODAY HE HAD FORGOTTEN ABOUT, CM WAS PROVIDED WITH FAX NUMBER OF [phone]. CM PREPARED LETTER AND FAXED REQUESTED. CM MET WITH PT AND GIRLFRIEND IN ROOM TO DISCUSS DISCHARGE PLANNING AND NEEDS. DARRELL PENN provided verbal consent to discuss current and ongoing needs with/in the presence of: GIRLFRIEND, GUERLINE. PT REPORTS LIVING AT HOME INDEPENDENTLY WITH HIS GIRLFRIEND. PT HAS NO MEDICAL EQUIPMENT AND NO OUTSIDE SERVICES ASSISTING IN THE HOME. CM DISCUSSED AVAILABILITY OF HOME HEALTH, REHAB SERVICES AND MEDICAL EQUIPMENT. PT DENIES DISCHARGE NEEDS, REPORTS HIS GIRLFRIEND WILL PICK HIM UP FOR DISCHARGE HOME. CM PROVIDED PT WITH COPY OF LETTER FAXED TO COURT WITH FAX CONFIRMATION. CM PLACED COPY OF LETTER IN MEDICAL CHART. CM PROVIDED PT WITH [facility] INFORMATION AND [facility] IN ATTEMPT TO ASSIST WITH PT LOCATING PRIMARY CARE PHYSICIAN. PT DENIES FUTHER DISCHARGE NEEDS. PT PLANS TO DISCHARGE HOME WITH GIRLFRIEND WHO WILL TRANSPORT PT HOME. PT HAS NO ANTICIPATED DISCHARGE NEEDS. CM TO FOLLOW AND ASSIST IF NEEDED. Speed Belt Sander Tender: Yaniv Hernández DCPIA - Discharge Planning Initial Assessment Updated by [email or web address]: Yaniv Hernández on 07/07/19 4:38 pm * Is the patient Alert and Oriented? Yes * How many steps to enter\exit or inside your home? * PCP NONE [facility] * [facility] * Preadmission Environment Home with Family * ADLs Independent * Equipment None * Other Equipment NO MEDICAL EQUIPMENT PROVIDER PREFERENCE * List name and contact numbers for known caregivers / representatives who currently or will assist patient after discharge: GUERLINE POOL, GIRLFRIEND, * Verbal permission to speak to the caregivers and representatives has been obtained from the patient. Yes * Community resources currently utilized None * Please name any agencies selected above. NONE * Additional services required to return to the preadmission environment? No * Can the patient safely return to the preadmission environment? Yes * Has this patient been hospitalized within the prior 30 days at any hospital? No Last DP export: 07/07/19 3:39 pm Patient Name: DARRELL PENN Page 17656 at 1647 All edits/amendments must be made on the electronic document DICTATION DATE: 07/07/191646 PARTS CATALOGER: DARYL 07/07/191646 RPT#: [id number] NH DATE: STATUS: ADM IN [facility] [address] [place] [address] END OF REPORT
== END 2019-07-07 16:58 | disposition home or self-care (01) | DRG 391 ==
LOC: D.ER 18:49 → D.M2 20:51
PROVIDERS: Family Medicine; ADMIT Internal Medicine Nephrology; ATTEND Internal Medicine Nephrology
DX: K20.9 Esophagitis, unspecified (principal); J96.01 Acute respiratory failure with hypoxia; N17.9 Acute kidney failure, unspecified; E87.1 Hypo-osmolality and hyponatremia; F17.213 Nicotine dependence, cigarettes, with withdrawal; K31.84 Gastroparesis; E87.6 Hypokalemia

== ENCOUNTER 2019-07-25 19:10 | Inpatient (IN) | payer MEDICAID ==
[~2019-07-25] VITALS: Ht 180.3 cm; Wt 76.7 kg
[~2019-07-25 19:10] MED LIST changes: +Biaxin PO
[2019-07-25 19:36] LABS: HEMATOCRIT 50.3 % (42.0-54.0); HEMOGLOBIN 19.7 g/dL (13.5-17.5); MCH 30.4 pg (26.0-34.0); MCHC 39.2 g/dL (31.0-37.0); MCV 77.6 fL (80.0-100.0); MEAN PLATELET VOLUME 9.4 fL (7.4-10.4); PLATELET COUNT 498 10x3/uL (130-400); RBC 6.48 10x6/uL (4.20-6.10); RDW 12.3 % (11.5-14.5); WBC 20.4 10x3/uL (4.8-10.8)
[2019-07-25 19:52] LABS: ALBUMIN 5.2 g/dL (3.4-5.0); ALKALINE PHOSPHATASE 69 U/L (46-116); ALT (SGPT) 16 U/L (10-68); AMYLASE - SERUM 69 U/L (25-115); BILIRUBIN - TOTAL 1.55 mg/dL (0.2-1.3); CALC OSMOLALITY 257 mosm/kg (275-300); CALCIUM 10.9 mg/dL (8.5-10.1); CREATININE - SERUM 1.7 mg/dL (0.6-1.3); GLUCOSE 113 mg/dL (74-106); LIPASE 83 U/L (73-393); PROTEIN - SERUM 9.1 g/dL (6.4-8.2); SODIUM 123 mmol/L (136-145); UREA NITROGEN 38 mg/dL (7-18); eGFR NON AFRICAN AMERICAN 53 mL/min (90-120)
[2019-07-25 19:59] LABS: CARBON DIOXIDE 45.5 mmol/L (21.0-32.0); CHLORIDE - SERUM 69 mmol/L (98-107); POTASSIUM - SERUM 2.8 mmol/L (3.5-5.1); TROPONIN-I < 0.017 ng/mL (0.000-0.060)
[2019-07-25 20:04] LABS: EOSINOPHILS 1 % (0-7); LYMPHOCYTES 12 % (15-50); MONOCYTES 9 % (2-11); NEUTROPHILS 78 % (40-80); PLATELET ESTIMATE NORMAL
--- NOTE | 2019-07-25 20:45 | NUR ---
URINE SENT TO THE LAB.
[2019-07-25 20:49] LABS: APPEARANCE CLEAR (CLEAR); COLOR STRAW (YELLOW); GLUCOSE NEGATIVE (NEGATIVE); NITRITE NEGATIVE (NEGATIVE); PROTEIN 3+ mg/dL (NEGATIVE); SPECIFIC GRAVITY 1.025 (1.005-1.020)
[2019-07-25 20:50] LABS: BILIRUBIN NEGATIVE (NEGATIVE); KETONE MODERATE mg/dL (NEGATIVE); UROBILINOGEN NORMAL (NORMAL)
[2019-07-25 20:54] LABS: BACTERIA FEW /hpf (NEGATIVE); EPITHELIAL CELLS NSEEN /hpf (0-5); RED CELLS - URINE 0-5 /hpf (0-5); WHITE CELLS - URINE 0-5 /hpf (NEGATIVE)
[2019-07-25 23:30] VITALS: BP 126/90
[2019-07-26 00:18] VITALS: BP 135/87; BMI 23.7
[2019-07-26 05:15] VITALS: BP 118/74
[2019-07-26 06:03] LABS: BASOPHILS 0.1 % (0-2); EOSINOPHILS 0.3 % (0-7); HEMATOCRIT 45.4 % (42.0-54.0); HEMOGLOBIN 17.4 g/dL (13.5-17.5); IMMATURE GRANULOCYTES 0.2 % (0-5); LYMPHOCYTES 11.9 % (15-50); MCH 30.7 pg (26.0-34.0); MCHC 38.3 g/dL (31.0-37.0); MEAN PLATELET VOLUME 9.9 fL (7.4-10.4); MONOCYTES 13.3 % (2-11); NEUTROPHILS 74.2 % (40-80); RBC 5.67 10x6/uL (4.20-6.10); RDW 12.2 % (11.5-14.5)
[2019-07-26 06:04] LABS: CALCIUM 9.9 mg/dL (8.5-10.1); CREATININE - SERUM 1.7 mg/dL (0.6-1.3)
[2019-07-26 06:06] LABS: MCV 80.1 fL (80.0-100.0); PLATELET COUNT 361 10x3/uL (130-400)
[2019-07-26 06:07] LABS: ANION GAP 6.5 mmol/L (8-16); CARBON DIOXIDE 45.2 mmol/L (21.0-32.0); POTASSIUM - SERUM 2.7 mmol/L (3.5-5.1)
--- NOTE | 2019-07-26 08:02 | NUR ---
AM ROUNDS- PT IS RESTING COMFORTABLY IN BED WITH EYES CLOSED, BREATHING EVEN AND NONLABORED, EASILY AROUSES TO VOICE. VITALS ASSESSED AT THIS TIME. DENIES ANY NEEDS WILL CTM. BP: 129/77 P:85 R:18 O2:95% ROOM AIR
[2019-07-26 08:59] VITALS: BP 129/77
--- NOTE | 2019-07-26 09:05 | NUR ---
ADMINISTERED MORNING MEDICATION AT THIS TIME. PT HAD NO TROUBLE SWALLOWING. REQUETED EMESIS BAG. PROVIDED AND PT IMMEDIATELY VOMITTED. DENIES ANY NEEDS, WILL CTM.
--- NOTE | 2019-07-26 09:38 | NUR ---
ADMINISTERED PRN ZOFRAN DUE TO PATIENT VOMITTING. DENIES OTHER NEEDS. IS RESTING COMFORTABLY IN BED. WILL CTM.
--- NOTE | 2019-07-26 11:05 | NUR ---
ADMINISTERED IV MEDICATION, NO TROUBLES. PT IS RESTING COMFORTABLY IN BED, AFTER PRN ZOFRAN THE PT HAS NO VOMITED ANYMORE. WILL CTM.
--- NOTE | 2019-07-26 14:58 | NUR ---
ADMINISTERED IV MEDICATION, NO TROUBLE OR COMPLAINT OF PAIN. RESTING COMFORTABLY IN BED. DENIES ANY NEEDS AT THIS TIME. WILL CTM.
--- NOTE | 2019-07-26 17:04 | NUR ---
PT RESTING COMFORTABLY IN BED WITH EYES CLOSED, BREATHING EVEN AND NON LABORED, NO S/S OF DISTRESS NOTED AT THIS TIME. EASILY AROUSES TO VOICE. DENIES ANY NEEDS. WILL CTM.
--- NOTE | 2019-07-26 18:09 | NUR ---
PT RESTING COMFORTABLY IN BED. DENIES ANY NEEDS AT THIS TIME. WILL CTM.
--- NOTE | 2019-07-26 18:10 | NUR ---
I have reviewed this patient and I concur with the Shift Assessment completed by the Licensed Practical Nurse today this shift.
--- NOTE | 2019-07-26 19:12 | NUR ---
PT SITTING UP IN BED WATCHING TV. CL IN REACH. DENIES NEEDS AT THIS TIME. BED IN LOW SIDE RAILS X2. A/O X4. RESP EVEN AND UNLABORED. WILL CONTINUE TO MONITOR.
[2019-07-26 19:50] VITALS: BP 127/81
--- NOTE | 2019-07-26 23:00 | NUR ---
I have reviewed this patient and I concur with the Shift Assessment completed by the Licensed Practical Nurse today this shift.
--- NOTE | 2019-07-26 23:10 | NUR ---
PT RESTING QUIETLY. CL IN REACH. NO DISTRESS NOTED. EYES CLOSED. WCTM
[2019-07-26 23:30] VITALS: BP 118/66
--- NOTE | 2019-07-27 03:35 | NUR ---
PT RESTING QUIETLY. CL IN REACH. NO DISTRESS NOTED. WCTM
[2019-07-27 04:42] VITALS: BP 133/96
--- NOTE | 2019-07-27 06:17 | NUR ---
PT RESTING QUIETLY. CL IN REACH. NO DISTRESS NOTED. WCTM
[2019-07-27 07:16] LABS: BASOPHILS 0.1 % (0-2); EOSINOPHILS 1.8 % (0-7); HEMATOCRIT 40.1 % (42.0-54.0); HEMOGLOBIN 14.6 g/dL (13.5-17.5); IMMATURE GRANULOCYTES 0.6 % (0-5); LYMPHOCYTES 21.5 % (15-50); MCH 29.7 pg (26.0-34.0); MCHC 36.4 g/dL (31.0-37.0); MCV 81.7 fL (80.0-100.0); MEAN PLATELET VOLUME 9.7 fL (7.4-10.4); MONOCYTES 10.1 % (2-11); NEUTROPHILS 65.9 % (40-80); PLATELET COUNT 314 10x3/uL (130-400); RBC 4.91 10x6/uL (4.20-6.10); RDW 12.2 % (11.5-14.5)
[2019-07-27 07:23] LABS: WBC 7.1 10x3/uL (4.8-10.8)
[2019-07-27 07:28] VITALS: BP 111/75
--- NOTE | 2019-07-27 07:38 | NUR ---
PT RESTING, EYES CLOSED. RR EVEN AND UNLABORED. ALERT AND ORIENTED. ASSESSMENT COMPLETE. WILL COTNINUE TO MONITOR.
[2019-07-27 07:56] LABS: BILIRUBIN - TOTAL 0.75 mg/dL (0.2-1.3); CALCIUM 8.9 mg/dL (8.5-10.1); CREATININE - SERUM 1.6 mg/dL (0.6-1.3); MAGNESIUM - SERUM 2.1 mg/dL (1.8-2.4)
[2019-07-27 08:00] LABS: ALBUMIN 3.3 g/dL (3.4-5.0); ANION GAP 6.2 mmol/L (8-16); POTASSIUM - SERUM 3.2 mmol/L (3.5-5.1); PROTEIN - SERUM 6.3 g/dL (6.4-8.2)
[2019-07-27 08:51] VITALS: Ht 180.3 cm; Wt 76.7 kg
--- NOTE | 2019-07-27 12:33 | NUR ---
I have reviewed this patient and I concur with the Shift Assessment completed by the Licensed Practical Nurse today this shift.
[2019-07-27 17:36] VITALS: BP 118/68
[2019-07-27 19:15] VITALS: BP 120/70
--- NOTE | 2019-07-27 19:58 | NUR ---
WRAPPED PATIENT'S IV FOR HIS TO TAKE A SHOWER PER HIS REQUEST
--- NOTE | 2019-07-27 20:42 | MORECARE ---
CASE MANAGEMENT DISCHARGE SUMMARY PATIENT: DARRELL PENN UNIT: [id number] ADM DATE: 07/25/19 AGE: 24 : [birth year] SEX: M ROOM/BED: D.1208 AUTHOR: MALKA SHERMAN PHYSICIAN: REFERRING PHYSICIAN: DYLAN TUTTLE MD DATE OF SERVICE: 07/27/19 Discharge Plan Patient Name: DARRELL PENN Facility: [facility]:[place] : 1995 Planned Disposition: Home Anticipated Discharge Date: Discharge Date: Expected LOS: Initial Reviewer: [email or web address] Initial Review Date: 07/27/2019 Generated: 07/27/19 9:42 pm DCPIA - Discharge Planning Initial Assessment Updated by [email or web address]: Rubi Fofana on 07/27/19 8:41 pm * Is the patient Alert and Oriented? Yes * How many steps to enter\exit or inside your home? * PCP [place] * Pharmacy [facility] * Preadmission Environment Home with Family * ADLs Independent * Equipment None * List name and contact numbers for known caregivers / representatives who currently or will assist patient after discharge: WANDA POOL - [phone] * Verbal permission to speak to the caregivers and representatives has been obtained from the patient. Yes * Community resources currently utilized None * Additional services required to return to the preadmission environment? No * Can the patient safely return to the preadmission environment? Yes * Has this patient been hospitalized within the prior 30 days at any hospital? Yes Patient Name: DARRELL PENN Page 25503 at 2042 All edits/amendments must be made on the electronic document DICTATION DATE: 07/27/192041 CHIP PERSON: DARYL 07/27/192041 RPT#: [id number] DC DATE: STATUS: [facility] [address] [place] [address] END OF REPORT
--- NOTE | 2019-07-27 20:55 | MORECARE ---
CASE MANAGEMENT DISCHARGE SUMMARY PATIENT: DARRELL PENN UNIT: [id number] ADM DATE: 07/25/19 AGE: 24 : [birth year] SEX: M ROOM/BED: D.1208 AUTHOR: WHIT,DOC PHYSICIAN: REFERRING PHYSICIAN: DYLAN TUTTLE MD DATE OF SERVICE: 07/27/19 Discharge Plan Patient Name: DARRELL PENN Facility: [facility]:[place] : 1995 Planned Disposition: Home Anticipated Discharge Date: Discharge Date: Expected LOS: Initial Reviewer: [email or web address] Initial Review Date: 07/27/2019 Generated: 07/27/19 9:54 pm Comments DCP- Discharge Planning Updated by [email or web address]: Rubi Fofana on 07/27/19 7:[address] Patient Name: DARRELL PENN Admission Status: ER Accout number: [id number] Admission Date: 07-25-2019 : 1995 Admission Diagnosis: Attending: DYLAN STOKES Current LOS: 2 Anticipated DC Date: Planned Disposition: Home Primary Insurance: [place] PRIVATE OPTIONS [facility] Discharge Planning Comments: CM met with patient at bedside after explaining CM role and obtaining verbal consent. Patient lives at home with his family where he is independent with his care and plans to return there upon discharge. Patient feels this would be a safe discharge. CM discussed availability / needs of home health and medical equipment. Patient denies any discharge needs at this time. Patient states he will have his family drive him home upon discharge. CM will continue to follow and assist as needed with discharge planning / needs. Barrel Tester: Rubi Fofana DCPIA - Discharge Planning Initial Assessment Updated by [email or web address]: Rubi Fofana on 07/27/19 8:41 pm * Is the patient Alert and Oriented? Yes * How many steps to enter\exit or inside your home? * PCP [place] * [facility] * Preadmission Environment Home with Family * ADLs Independent * Equipment None * List name and contact numbers for known caregivers / representatives who currently or will assist patient after discharge: WANDA POOL - [phone] * Verbal permission to speak to the caregivers and representatives has been obtained from the patient. Yes * Community resources currently utilized None * Additional services required to return to the preadmission environment? No * Can the patient safely return to the preadmission environment? Yes * Has this patient been hospitalized within the prior 30 days at any hospital? Yes Last DP export: 07/27/19 7:42 p Patient Name: DARRELL PENN Page 43335 at 2054 All edits/amendments must be made on the electronic document DICTATION DATE: 07/27/192053 DELI ASSOCIATE: DARYL 07/27/192053 RPT#: [id number] DC DATE: STATUS: ADM IN [facility] [address] [place] [address] END OF REPORT
[2019-07-28 00:45] VITALS: BP 120/78
[2019-07-28 05:32] LABS: BASOPHILS 0.3 % (0-2); EOSINOPHILS 2.5 % (0-7); HEMATOCRIT 37.2 % (42.0-54.0); HEMOGLOBIN 13.7 g/dL (13.5-17.5); IMMATURE GRANULOCYTES 0.3 % (0-5); LYMPHOCYTES 25.2 % (15-50); MCH 29.9 pg (26.0-34.0); MCHC 36.8 g/dL (31.0-37.0); MCV 81.2 fL (80.0-100.0); MEAN PLATELET VOLUME 9.8 fL (7.4-10.4); MONOCYTES 9.1 % (2-11); NEUTROPHILS 62.6 % (40-80); PLATELET COUNT 354 10x3/uL (130-400); RBC 4.58 10x6/uL (4.20-6.10); RDW 12.2 % (11.5-14.5); WBC 7.2 10x3/uL (4.8-10.8)
[2019-07-28 05:36] LABS: ALBUMIN 3.5 g/dL (3.4-5.0); ANION GAP 8.6 mmol/L (8-16); BILIRUBIN - TOTAL 0.75 mg/dL (0.2-1.3); CALCIUM 8.6 mg/dL (8.5-10.1); CARBON DIOXIDE 31.9 mmol/L (21.0-32.0); CREATININE - SERUM 1.4 mg/dL (0.6-1.3); POTASSIUM - SERUM 3.5 mmol/L (3.5-5.1); PROTEIN - SERUM 6.1 g/dL (6.4-8.2)
[2019-07-28 06:01] VITALS: BP 111/67
[2019-07-28 07:28] VITALS: BP 119/78
--- NOTE | 2019-07-28 07:36 | NUR ---
ROUNDING DONE WITH PATIENT HAVING NO NEEDS VOICED. LAYING ON RIGHT SIDE. LEFT AC PIV WITH NS INFUSING AT 100 CC/HR. ON EP, K+ WAS 3.5 AND COVERED WITH ORAL SUPPLEMENTS THIS AM. ON ROOM AIR. WILL CPOC.
[2019-07-28] MEDS ORDERED: CARAFATE1 G PO (09:38)
[2019-07-28] MEDS ORDERED: PROTONIX40 MG PO (09:38)
--- NOTE | 2019-07-28 11:02 | NUR ---
PATIENT STATES THAT HIS RIDE WILL BE HERE WITHIN THE HOUR. WILL REMOVE SALINE LOCK AT THAT TIME AND GIVE DISCHARGE PAPERWORK.
--- NOTE | 2019-07-28 11:04 | NUR ---
SALINE LOCK REMOVED WITH TIP INTACT.
--- NOTE | 2019-07-28 12:24 | NUR ---
VERBAL AND WRITTEN DISCHARGE INSTRUCTIONS GIVEN TO PATIENT. DISCHARGED HOME VIA WHEELCHAIR.
--- NOTE | 2019-07-28 18:13 | MORECARE ---
CASE MANAGEMENT DISCHARGE SUMMARY PATIENT: DARRELL PENN UNIT: [id number] ADM DATE: 07/25/19 AGE: 24 : [birth year] SEX: M ROOM/BED: D.1208 AUTHOR: WHIT,DOC PHYSICIAN: REFERRING PHYSICIAN: DYLAN TUTTLE MD DATE OF SERVICE: 07/28/19 Discharge Plan Patient Name: DARRELL PENN Facility: [facility]:[place] : 1995 Planned Disposition: Home Anticipated Discharge Date: Discharge Date: 07/28/2019 Expected LOS: Initial Reviewer: [email or web address] Initial Review Date: 07/27/2019 Generated: 07/28/19 7:12 pm Comments DCP- Discharge Planning Updated by [email or web address]: Rubi Fofana on 07/27/19 7:[address] Patient Name: DARRELL PENN Admission Status: ER Accout number: [id number] Admission Date: 07-25-2019 : 1995 Admission Diagnosis: Attending: DYLAN STOKES Current LOS: 2 Anticipated DC Date: Planned Disposition: Home Primary Insurance: [place] PRIVATE [employer]IONS [employer] Discharge Planning Comments: CM met with patient at bedside after explaining CM role and obtaining verbal consent. Patient lives at home with his family where he is independent with his care and plans to return there upon discharge. Patient feels this would be a safe discharge. CM discussed availability / needs of home health and medical equipment. Patient denies any discharge needs at this time. Patient states he will have his family drive him home upon discharge. CM will continue to follow and assist as needed with discharge planning / needs. Heading Repairer: Rubi Fofana DCPIA - Discharge Planning Initial Assessment Updated by [email or web address]: Rubi Fofana on 07/27/19 8:41 pm * Is the patient Alert and Oriented? Yes * How many steps to enter\exit or inside your home? * PCP [facility] * [facility] * Preadmission Environment Home with Family * ADLs Independent * Equipment None * List name and contact numbers for known caregivers / representatives who currently or will assist patient after discharge: WANDA POOL - [phone] * Verbal permission to speak to the caregivers and representatives has been obtained from the patient. Yes * Community resources currently utilized None * Additional services required to return to the preadmission environment? No * Can the patient safely return to the preadmission environment? Yes * Has this patient been hospitalized within the prior 30 days at any hospital? Yes Last DP export: 07/27/19 7:55 p Patient Name: DARRELL PENN Page 53528 at 1813 All edits/amendments must be made on the electronic document DICTATION DATE: 07/28/191811 COLOR CONSULTANT: DARYL 07/28/191811 RPT#: [id number] DC DATE:07/28/19 STATUS: DIS IN [facility] [address] [place] [address] END OF REPORT
== END 2019-07-28 12:27 | disposition home or self-care (01) | DRG 897 ==
LOC: D.ER 19:10 → D.M3 20:39
PROVIDERS: Emergency Medicine; ADMIT Family Medicine; ATTEND Family Medicine
DX: F12.988 Cannabis use, unspecified with other cannabis-induced disorder (principal); E87.1 Hypo-osmolality and hyponatremia; N17.9 Acute kidney failure, unspecified; K31.84 Gastroparesis; F17.213 Nicotine dependence, cigarettes, with withdrawal; E87.6 Hypokalemia; E86.0 Dehydration; G43.A0 Cyclical vomiting, in migraine, not intractable; D50.9 Iron deficiency anemia, unspecified; K20.9 Esophagitis, unspecified; Z91.19 Patient's noncompliance with other medical treatment and regimen

== ENCOUNTER 2019-08-18 15:16 | Inpatient (IN) | payer MEDICAID ==
[~2019-08-18] VITALS: Ht 180.3 cm; Wt 72.6 kg
[~2019-08-18 15:16] MED LIST changes: +CARAFATE1 G PO
[2019-08-18 16:26] LABS: BASOPHILS 0 % (0-2); EOSINOPHILS 0 % (0-7); HEMATOCRIT 52.6 % (42.0-54.0); HEMOGLOBIN 19.6 g/dL (13.5-17.5); IMMATURE GRANULOCYTES 0.3 % (0-5); MCH 30.9 pg (26.0-34.0); MCHC 37.3 g/dL (31.0-37.0); MCV 82.8 fL (80.0-100.0); MEAN PLATELET VOLUME 9.6 fL (7.4-10.4); MONOCYTES 9.9 % (2-11); NEUTROPHILS 79.8 % (40-80); RBC 6.35 10x6/uL (4.20-6.10); RDW 12.5 % (11.5-14.5); WBC 11.3 10x3/uL (4.8-10.8)
[2019-08-18 16:28] LABS: PLATELET COUNT 552 10x3/uL (130-400)
[2019-08-18 16:39] LABS: ALBUMIN 5.8 g/dL (3.4-5.0); ALKALINE PHOSPHATASE 71 U/L (46-116); ALT (SGPT) 18 U/L (10-68); AMYLASE - SERUM 89 U/L (25-115); BILIRUBIN - TOTAL 0.92 mg/dL (0.2-1.3); CALC OSMOLALITY 262 mosm/kg (275-300); CALCIUM 11.5 mg/dL (8.5-10.1); CREATININE - SERUM 1.2 mg/dL (0.6-1.3); GLUCOSE 102 mg/dL (74-106); LIPASE 82 U/L (73-393); POTASSIUM - SERUM 3.4 mmol/L (3.5-5.1); PROTEIN - SERUM 10.1 g/dL (6.4-8.2); SODIUM 129 mmol/L (136-145); TROPONIN-I < 0.017 ng/mL (0.000-0.060); UREA NITROGEN 25 mg/dL (7-18); eGFR NON AFRICAN AMERICAN 80 mL/min (90-120)
[2019-08-18 16:41] LABS: CARBON DIOXIDE 40.8 mmol/L (21.0-32.0); CHLORIDE - SERUM 76 mmol/L (98-107)
--- NOTE | 2019-08-18 18:32 | NUR ---
TRIED TO CALL AND GIVE REPORT WAS TOLD ONLY NURSE WAS PASSING MEDS. LET CHARGE NURSE REBEKA KNOW.
--- NOTE | 2019-08-18 19:18 | NUR ---
NS BOLUS STOPPED WHEN ADMITTED AT 1925
[2019-08-18 20:07] VITALS: BP 145/95
--- NOTE | 2019-08-18 20:19 | NUR ---
PT ARRIVED TO UNIT VIA WHEELCHAIR. WITH ER STAFF. PT IMMEDIATLY BECAME NAUSEAS AND STARTED VOMITING. PT ON ZOFRAN DRIP AND NS THROUGH LEFT AC IV. VITALS WNL. DENIES FURTHER NEEDS. CL IN REACH. BED IN LOW. WILL CONTINUE TO MONITOR.
[2019-08-18 23:21] VITALS: BP 116/70
[2019-08-19 00:13] VITALS: BP 145/95; BMI 22.3
--- NOTE | 2019-08-19 01:00 | NUR ---
PT RESTING QUIETLY. CL IN REACH. NO DISTRESS NOTED. WCTM
[2019-08-19 04:30] VITALS: BP 110/63
--- NOTE | 2019-08-19 05:32 | NUR ---
PT RESTING QUIETLY. CL IN REACH. NO DISTRESS NOTED. WCTM
[2019-08-19 06:54] LABS: BASOPHILS 0 % (0-2); EOSINOPHILS 0.1 % (0-7); HEMATOCRIT 43.6 % (42.0-54.0); HEMOGLOBIN 15.8 g/dL (13.5-17.5); IMMATURE GRANULOCYTES 0.3 % (0-5); LYMPHOCYTES 12.9 % (15-50); MCHC 36.2 g/dL (31.0-37.0); MCV 82.9 fL (80.0-100.0); MEAN PLATELET VOLUME 9.8 fL (7.4-10.4); NEUTROPHILS 74.7 % (40-80); PLATELET COUNT 469 10x3/uL (130-400); RBC 5.26 10x6/uL (4.20-6.10); RDW 12.4 % (11.5-14.5); WBC 10.3 10x3/uL (4.8-10.8)
[2019-08-19 07:28] LABS: ALKALINE PHOSPHATASE 54 U/L (46-116); ALT (SGPT) 14 U/L (10-68); BILIRUBIN - TOTAL 0.87 mg/dL (0.2-1.3); CALC OSMOLALITY 267 mosm/kg (275-300); CALCIUM 9.8 mg/dL (8.5-10.1); CARBON DIOXIDE 36.7 mmol/L (21.0-32.0); CHLORIDE - SERUM 87 mmol/L (98-107); CREATININE - SERUM 1.1 mg/dL (0.6-1.3); GLUCOSE 94 mg/dL (74-106); MAGNESIUM - SERUM 2.2 mg/dL (1.8-2.4); PROTEIN - SERUM 7.9 g/dL (6.4-8.2); SODIUM 132 mmol/L (136-145); UREA NITROGEN 22 mg/dL (7-18); eGFR NON AFRICAN AMERICAN 88 mL/min (90-120)
--- NOTE | 2019-08-19 07:30 | NUR ---
PATIENT LYING IN BED WITH EYES CLOSED. NO APPARENT DISTRESS NOTED. BED IN LOW POSITION, SIDERASILS UP X 2., CALL LIGHT IN EASY REACH.
[2019-08-19 07:35] LABS: ALBUMIN 4.2 g/dL (3.4-5.0); POTASSIUM - SERUM 2.3 mmol/L (3.5-5.1)
--- NOTE | 2019-08-19 14:39 | MORECARE ---
CASE MANAGEMENT DISCHARGE SUMMARY PATIENT: DARRELL PENN UNIT: [id number] ADM DATE: 08/18/19 AGE: 24 : [birth year] SEX: M ROOM/BED: D.1207 AUTHOR: MALKA SHERMAN PHYSICIAN: REFERRING PHYSICIAN: MADDISON BHAKTA MD DATE OF SERVICE: 08/19/19 Discharge Plan Patient Name: DARRELL PENN Facility: [facility]:[place] : 1995 Planned Disposition: Home Anticipated Discharge Date: Discharge Date: Expected LOS: Initial Reviewer: [email or web address] Initial Review Date: 08/19/2019 Generated: 08/19/19 3:39 pm Comments DCP- Discharge Planning Updated by [email or web address]: Luz Marina Logan on 08/19/19 1:[address] Patient Name: DARRELL PENN Admission Status: ER Accout number: [id number] Admission Date: 08-18-2019 : 1995 Admission Diagnosis: Attending: MADDISON BHAKTA Current LOS: 1 Anticipated DC Date: Planned Disposition: Home Primary Insurance: [place] PR[employer]IONS [employer] Discharge Planning Comments: CM MET WITH PATIENT AFTER OBTAINING VERBAL CONSENT. STATES PLANS TO DISCHARGE TO HOME. DISCUSSED NEED FOR HH, REHAB OR EQUIPMENT, PATIENT STATES NO NEEDS. CM WILL FOLLOW AND ASSIST NEEDED. Audio/Visual Operator: Luz Marina Logan DCPIA - Discharge Planning Initial Assessment Updated by [email or web address]: Luz Marina Logan on 08/19/19 2:31 pm * Is the patient Alert and Oriented? Yes * PCP [place] * Pharmacy [facility] * Preadmission Environment Home with Family * ADLs Independent * Other Equipment NONE * List name and contact numbers for known caregivers / representatives who currently or will assist patient after discharge: WANDA [phone] * Community resources currently utilized None * Additional services required to return to the preadmission environment? No * Can the patient safely return to the preadmission environment? Yes * Has this patient been hospitalized within the prior 30 days at any hospital? Yes Patient Name: DARRELL PENN Page 18473 at 1430 All edits/amendments must be made on the electronic document DICTATION DATE: 08/19/19 1437 PACKAGING SALES REPRESENTATIVE: DARYL 08/19/19 1439 RPT#: [id number] DC DATE: STATUS: ADM IN [facility] [address] [place] [address] END OF REPORT
[2019-08-19 14:51] VITALS: Ht 180.3 cm; Wt 72.6 kg
[2019-08-19 16:15] LABS: APPEARANCE CLEAR (CLEAR); COLOR YELLOW (YELLOW)
[2019-08-19 16:16] LABS: BILIRUBIN NEGATIVE (NEGATIVE); GLUCOSE NEGATIVE (NEGATIVE); KETONE LARGE mg/dL (NEGATIVE); NITRITE NEGATIVE (NEGATIVE); PROTEIN 1+ mg/dL (NEGATIVE); UROBILINOGEN NORMAL (NORMAL)
[2019-08-19 16:29] LABS: BACTERIA FEW /hpf (NEGATIVE); RED CELLS - URINE OCC /hpf (0-5); WHITE CELLS - URINE 0-5 /hpf (NEGATIVE)
--- NOTE | 2019-08-19 19:47 | NUR ---
EVENING ROUNDS COMPLETED. PT AAOX3, VSS, WITH WEAKNESS. PT K+ WENT UP TO FROM 2.3 TO 2.8 AFTER RECIEVING X6 DOSES OF 10MEQ IV. WILL ADMINISTER 3 DOSES OF 20MEQ POWDERED K+, 2HRS INTERVAL AND PLACE PT ON TELE FOR CARDIAC MONITORING. PT CURENLTLY RESTING IN BED, DENIES ANY FURTHER NEEDS AT THIS TIME. WILL CPOC. CL WITHIN REACH, BED IN LOW, SR UP X2.
[2019-08-19 20:09] VITALS: BP 121/82
[2019-08-19 23:16] VITALS: BP 141/94
[2019-08-20 04:00] VITALS: BP 150/95
[2019-08-20 05:55] LABS: BASOPHILS 0.1 % (0-2); EOSINOPHILS 0.3 % (0-7); HEMATOCRIT 42.4 % (42.0-54.0); HEMOGLOBIN 15.2 g/dL (13.5-17.5); IMMATURE GRANULOCYTES 0.3 % (0-5); LYMPHOCYTES 17.3 % (15-50); MCH 29.7 pg (26.0-34.0); MCHC 35.8 g/dL (31.0-37.0); MCV 82.8 fL (80.0-100.0); MEAN PLATELET VOLUME 9.8 fL (7.4-10.4); PLATELET COUNT 418 10x3/uL (130-400); RBC 5.12 10x6/uL (4.20-6.10); RDW 12.2 % (11.5-14.5)
[2019-08-20 05:58] LABS: WBC 7.7 10x3/uL (4.8-10.8)
[2019-08-20 06:20] LABS: CALC OSMOLALITY 271 mosm/kg (275-300); CARBON DIOXIDE 33.6 mmol/L (21.0-32.0); CHLORIDE - SERUM 91 mmol/L (98-107); CREATININE - SERUM 1.1 mg/dL (0.6-1.3); GLUCOSE 86 mg/dL (74-106); MAGNESIUM - SERUM 2.2 mg/dL (1.8-2.4); SODIUM 135 mmol/L (136-145); UREA NITROGEN 22 mg/dL (7-18); eGFR NON AFRICAN AMERICAN 88 mL/min (90-120)
[2019-08-20 06:40] LABS: POTASSIUM - SERUM 2.8 mmol/L (3.5-5.1)
--- NOTE | 2019-08-20 07:00 | NUR ---
PT RESTING. RR EVEN AND UNLABORED. NO DISTRESS NOTED. WILL CONTINUE TO MONITOR.
[2019-08-20 08:00] VITALS: BP 116/81
--- NOTE | 2019-08-20 17:33 | NUR ---
PT HAD SHOWER. LINENS AND GOWN CHANGED.
[2019-08-20 21:20] VITALS: BP 121/77
--- NOTE | 2019-08-20 21:20 | NUR ---
EVENING ROUNDS COMPLETED. PT RESTING COMFORTABLE IN BED. PT IS ALERT AND ORIENTED X4. HE IS NO SIGNS OF DISTRESS. HE DENIES PAIN OR NAUSEA. VITAL SIGNS STABLE. CALL LIGHT IN REACH, BED IN LOWEST POSITION, SRX2.
[2019-08-21 00:39] VITALS: BP 118/75
[2019-08-21 04:50] VITALS: BP 117/78
--- NOTE | 2019-08-21 05:01 | NUR ---
PT RESTING IN BED COMFORTABLY. DENIES N/V OR PAIN. VSS ZOFRAN DRIP RUNNING @4.7ML/HR AND NS@100ML/HR. BED IN LOWEST POS. CALL LIGHT WITHIN REACH.SIDE RAILS X2. PT CAN MAKE NEEDS KNOWN AND DENIES ANY FURTHER REQUESTS AT THIS TIME.
[2019-08-21 07:00] LABS: CALC OSMOLALITY 274 mosm/kg (275-300); CALCIUM 9.3 mg/dL (8.5-10.1); CARBON DIOXIDE 31.1 mmol/L (21.0-32.0); CHLORIDE - SERUM 99 mmol/L (98-107); CREATININE - SERUM 1.1 mg/dL (0.6-1.3); GLUCOSE 83 mg/dL (74-106); SODIUM 137 mmol/L (136-145); UREA NITROGEN 17 mg/dL (7-18); eGFR NON AFRICAN AMERICAN 88 mL/min (90-120)
[2019-08-21 07:02] LABS: BASOPHILS 0.2 % (0-2); EOSINOPHILS 1.8 % (0-7); HEMATOCRIT 44.7 % (42.0-54.0); HEMOGLOBIN 16.4 g/dL (13.5-17.5); MCH 30.2 pg (26.0-34.0); MCHC 36.7 g/dL (31.0-37.0); MCV 82.3 fL (80.0-100.0); MONOCYTES 9.8 % (2-11); NEUTROPHILS 56.2 % (40-80); PLATELET COUNT 377 10x3/uL (130-400); RBC 5.43 10x6/uL (4.20-6.10); RDW 12.4 % (11.5-14.5); WBC 8.3 10x3/uL (4.8-10.8)
--- NOTE | 2019-08-21 08:05 | NUR ---
PT LAYING DOWN, EYES CLOSED. RR EVEN AND UNLABORED. NO DISTRESS NOTED. WILL CONTINUE TO MONITOR.
[2019-08-21 09:29] VITALS: BP 129/85
--- NOTE | 2019-08-21 09:53 | NUR ---
I have reviewed this patient and I concur with the Shift Assessment completed by the Licensed Practical Nurse today this shift.
[2019-08-21] MEDS ORDERED: ZOFRAN ODT4 MG/UDTAB PO (11:58)
--- NOTE | 2019-08-21 13:16 | MORECARE ---
CASE MANAGEMENT DISCHARGE SUMMARY PATIENT: DARRELL PENN UNIT: [id number] ADM DATE: 08/18/19 AGE: 24 : [birth year] SEX: M ROOM/BED: D.1207 AUTHOR: WHIT,DOC PHYSICIAN: REFERRING PHYSICIAN: MADDISON BHAKTA MD DATE OF SERVICE: 08/21/19 Discharge Plan Patient Name: DARRELL PENN Facility: [facility]:[place] : 1995 Planned Disposition: Home Anticipated Discharge Date: 08/21/19 Discharge Date: Expected LOS: 3 Initial Reviewer: [email or web address] Initial Review Date: 08/19/2019 Generated: 08/21/19 2:16 pm Comments DCP- Discharge Planning Updated by [email or web address]: Luz Marina Logan on 08/21/19 12:[address] Patient Name: DARRELL PENN Encounter No: [id number] : 1995 Primary Insurance: [place] Anticipated DC Date: 08-21-2019 Planned Disposition: Home External Planned Provider: : DCP follow-up note: Patient and family in agreement with discharge plan. No changes to plan. Case management will follow and assist as needed. Luz Marina Logan DCP- Discharge Planning Updated by [email or web address]: Luz Marina Logan on 08/19/19 1:[address] Patient Name: DARRELL PENN Admission Status: ER Accout number: [id number] Admission Date: 08-18-2019 : 1995 Admission Diagnosis: Attending: MADDISON BHAKTA Current LOS: 1 Anticipated DC Date: Planned Disposition: Home Primary Insurance: [employer] [facility] Discharge Planning Comments: CM MET WITH PATIENT AFTER OBTAINING VERBAL CONSENT. STATES PLANS TO DISCHARGE TO HOME. DISCUSSED NEED FOR HH, REHAB OR EQUIPMENT, PATIENT STATES NO NEEDS. CM WILL FOLLOW AND ASSIST NEEDED. Poker Machine Attendant: Luz Marina Logan DCPIA - Discharge Planning Initial Assessment Updated by [email or web address]: Luz Marina Logan on 08/19/19 2:31 pm * Is the patient Alert and Oriented? Yes * PCP [facility] * Pharmacy [facility] * Preadmission Environment Home with Family * ADLs Independent * Other Equipment NONE * List name and contact numbers for known caregivers / representatives who currently or will assist patient after discharge: WANDA [phone] * Community resources currently utilized None * Additional services required to return to the preadmission environment? No * Can the patient safely return to the preadmission environment? Yes * Has this patient been hospitalized within the prior 30 days at any hospital? Yes Last DP export: 08/19/19 1:39 Patient Name: DARRELL PENN Page 66813 at 1316 All edits/amendments must be made on the electronic document DICTATION DATE: 08/21/191314 BUTTON TACKER: DARYL 08/21/191314 RPT#: [id number] DC DATE: STATUS: ADM IN [facility] [address] [place] [address] END OF REPORT
--- NOTE | 2019-08-21 13:37 | NUR ---
PT TOLERATED OVER 50% OF MEAL. D/C INSRUCTIONS REVIEWED WITH PT. VERBALIZED UNDERSTANDING AND NO FURTHER QUESTIONS AT THIS TIME. IV D/C WITH CATHETER TIP INTACT. PT STATED HE HAS A RIDE ON ITS WAY.
--- NOTE | 2019-08-21 13:49 | NUR ---
PT LEFT VIA WHEELCHAIR WITH ALL BELONGINGS.
--- NOTE | 2019-08-24 08:43 | MORECARE ---
CASE MANAGEMENT DISCHARGE SUMMARY PATIENT: DARRELL PENN UNIT: [id number] ADM DATE: 08/18/19 AGE: 24 : [birth year] SEX: M ROOM/BED: D.1207 AUTHOR: WHIT,DOC PHYSICIAN: REFERRING PHYSICIAN: MADDISON BHAKTA MD DATE OF SERVICE: 08/24/19 Discharge Plan Patient Name: DARRELL PENN Facility: [facility]:[place] : 1995 Planned Disposition: Home Anticipated Discharge Date: 08/21/19 Discharge Date: 08/21/2019 Expected LOS: 3 Initial Reviewer: [email or web address] Initial Review Date: 08/19/2019 Generated: 08/24/19 9:42 am Comments DCP- Discharge Planning Updated by [email or web address]: Luz Marina Logan on 08/21/19 12:[address] Patient Name: DARRELL PENN Encounter No: [id number] : 1995 Primary Insurance: [employer] [facility] Anticipated DC Date: 08-21-2019 Planned Disposition: Home External Planned Provider: : DCP follow-up note: Patient and family in agreement with discharge plan. No changes to plan. Case management will follow and assist as needed. Luz Marina Logan DCP- Discharge Planning Updated by [email or web address]: Luz Marina Logan on 08/19/19 1:[address] Patient Name: DARRELL PENN Admission Status: ER Accout number: [id number] Admission Date: 08-18-2019 : 1995 Admission Diagnosis: Attending: MADDISON BHAKTA Current LOS: 1 Anticipated DC Date: Planned Disposition: Home Primary Insurance: [employer] [facility] Discharge Planning Comments: CM MET WITH PATIENT AFTER OBTAINING VERBAL CONSENT. STATES PLANS TO DISCHARGE TO HOME. DISCUSSED NEED FOR HH, REHAB OR EQUIPMENT, PATIENT STATES NO NEEDS. CM WILL FOLLOW AND ASSIST NEEDED. Cathode Washer: Luz Marina Logan DCA - Discharge Planning Initial Assessment Updated by [email or web address]: Luz Marina Logan on 08/19/19 2:31 pm * Is the patient Alert and Oriented? Yes * PCP VERNONH * Pharmacy [facility] * Preadmission Environment Home with Family * ADLs Independent * Other Equipment NONE * List name and contact numbers for known caregivers / representatives who currently or will assist patient after discharge: WANDA [phone] * Community resources currently utilized None * Additional services required to return to the preadmission environment? No * Can the patient safely return to the preadmission environment? Yes * Has this patient been hospitalized within the prior 30 days at any hospital? Yes Last DP export: 08/21/19 12:16 Patient Name: DARRELL PENN Page [phone] at 0843 All edits/amendments must be made on the electronic document DICTATION DATE: 08/24/19841 RN FORENSIC: DARYL 08/24/19841 RPT#: [id number] DC DATE:08/21/19 STATUS: DIS IN [facility] [address] [place] [address] END OF REPORT
== END 2019-08-21 16:25 | disposition home or self-care (01) | DRG 394 ==
LOC: D.ER 15:16 → D.M3 18:01
PROVIDERS: Family Medicine; ADMIT Emergency Medicine; ATTEND Emergency Medicine
DX: R11.15 Cyclical vomiting syndrome unrelated to migraine (principal); E87.1 Hypo-osmolality and hyponatremia; F17.213 Nicotine dependence, cigarettes, with withdrawal; K31.84 Gastroparesis; F12.988 Cannabis use, unspecified with other cannabis-induced disorder; E87.6 Hypokalemia; E83.52 Hypercalcemia; Z91.19 Patient's noncompliance with other medical treatment and regimen; E86.0 Dehydration

== ENCOUNTER 2019-09-06 11:44 | Inpatient (IN) | payer MEDICAID ==
[~2019-09-06] VITALS: Ht 180.3 cm; Wt 79.4 kg
[2019-09-06 12:17] LABS: BASOPHILS 0 % (0-2); EOSINOPHILS 0 % (0-7); HEMATOCRIT 51.1 % (42.0-54.0); IMMATURE GRANULOCYTES 0.2 % (0-5); LYMPHOCYTES 6.8 % (15-50); MCH 30.8 pg (26.0-34.0); MCHC 37.2 g/dL (31.0-37.0); MEAN PLATELET VOLUME 9.5 fL (7.4-10.4); MONOCYTES 12.3 % (2-11); NEUTROPHILS 80.7 % (40-80); RBC 6.16 10x6/uL (4.20-6.10); RDW 12.8 % (11.5-14.5); WBC 13.8 10x3/uL (4.8-10.8)
[2019-09-06 12:18] LABS: AMORPHOUS SEDIMENT <1+ /lpf (NONE SEEN); APPEARANCE CLEAR (CLEAR); BACTERIA FEW /hpf (NEGATIVE); BILIRUBIN NEGATIVE (NEGATIVE); COLOR YELLOW (YELLOW); EPITHELIAL CELLS 0-5 /hpf (0-5); GLUCOSE NEGATIVE (NEGATIVE); KETONE LARGE mg/dL (NEGATIVE); MUCUS <1+ /lpf (NONE SEEN); NITRITE NEGATIVE (NEGATIVE); PROTEIN 2+ mg/dL (NEGATIVE); RED CELLS - URINE 0-5 /hpf (0-5); SPECIFIC GRAVITY 1.015 (1.005-1.020); UROBILINOGEN NORMAL (NORMAL)
[2019-09-06 12:21] LABS: PLATELET COUNT 564 10x3/uL (130-400)
[2019-09-06 12:31] LABS: ALBUMIN 5.4 g/dL (3.4-5.0); BILIRUBIN - TOTAL 1.06 mg/dL (0.2-1.3); CALCIUM 10.8 mg/dL (8.5-10.1); CREATININE - SERUM 1.7 mg/dL (0.6-1.3); MAGNESIUM - SERUM 2.4 mg/dL (1.8-2.4); PROTEIN - SERUM 10.4 g/dL (6.4-8.2)
[2019-09-06 12:38] LABS: CARBON DIOXIDE 38.8 mmol/L (21.0-32.0)
[2019-09-06 12:41] LABS: ANION GAP 14.5 mmol/L (8-16); POTASSIUM - SERUM 2.3 mmol/L (3.5-5.1)
[2019-09-06 12:50] LABS: KETONE - SERUM NEGATIVE (NEGATIVE)
[2019-09-06 13:10] LABS: CREATINE KINASE 45 UL (21-232); THYROID STIMULATING HORMONE 1.06 uIU/mL (0.36-3.74)
[2019-09-06 13:12] LABS: TROPONIN-I < 0.017 ng/mL (0.000-0.060)
[2019-09-06 14:06] LABS: UDS - AMPHET NEGATIVE QUAL (NEGATIVE); UDS - BARB NEGATIVE QUAL (NEGATIVE); UDS - BENZO NEGATIVE QUAL (NEGATIVE); UDS - COCAINE NEGATIVE QUAL (NEGATIVE); UDS - OPIATE NEGATIVE QUAL (NEGATIVE); UDS - PCP NEGATIVE QUAL (NEGATIVE); UDS - THC POSITIVE QUAL (NEGATIVE)
[2019-09-06 15:13] VITALS: BP 140/73; BMI 24.4
[2019-09-06 16:00] VITALS: BP 140/92
[2019-09-06 20:00] VITALS: BP 143/88
[2019-09-07 00:23] VITALS: BP 100/66
[2019-09-07 04:00] VITALS: BP 123/73
[2019-09-07 06:32] LABS: BASOPHILS 0 % (0-2); EOSINOPHILS 0 % (0-7); HEMATOCRIT 43.4 % (42.0-54.0); HEMOGLOBIN 15.6 g/dL (13.5-17.5); IMMATURE GRANULOCYTES 0.2 % (0-5); LYMPHOCYTES 12.6 % (15-50); MCHC 35.9 g/dL (31.0-37.0); MCV 83.5 fL (80.0-100.0); MEAN PLATELET VOLUME 9.5 fL (7.4-10.4); MONOCYTES 12.4 % (2-11); NEUTROPHILS 74.8 % (40-80); RDW 12.5 % (11.5-14.5)
[2019-09-07 06:37] LABS: CARBON DIOXIDE 32.6 mmol/L (21.0-32.0); CREATININE - SERUM 1.5 mg/dL (0.6-1.3)
[2019-09-07 06:39] LABS: ANION GAP 10.8 mmol/L (8-16); POTASSIUM - SERUM 3.4 mmol/L (3.5-5.1)
[2019-09-07 06:46] LABS: PLATELET COUNT 402 10x3/uL (130-400); WBC 9.9 10x3/uL (4.8-10.8)
--- NOTE | 2019-09-07 08:02 | NUR ---
PT RESTING. EYES CLOSED. RR EVEN AND UNLABORED. NO DISTRESS NOTED. BED IN LOWEST POSITION. CALL LIGHT WITHIN REACH. WILL CONTINUE TO MONITOR.
[2019-09-07 09:32] VITALS: BP 113/67
[2019-09-07 13:09] VITALS: BP 120/79
--- NOTE | 2019-09-07 13:25 | NUR ---
I have reviewed this patient and I concur with the Shift Assessment completed by the Licensed Practical Nurse today this shift.
[2019-09-07 15:47] VITALS: Ht 180.3 cm; Wt 79.4 kg
[2019-09-07 16:45] VITALS: BP 132/90
[2019-09-07 20:00] VITALS: BP 128/83
[2019-09-08] VITALS: BP 118/55
[2019-09-08 04:00] VITALS: BP 151/89
[2019-09-08 07:00] LABS: BASOPHILS 0.3 % (0-2); EOSINOPHILS 0.9 % (0-7); HEMATOCRIT 42.2 % (42.0-54.0); HEMOGLOBIN 15.2 g/dL (13.5-17.5); IMMATURE GRANULOCYTES 0.4 % (0-5); LYMPHOCYTES 25.1 % (15-50); MCH 30.2 pg (26.0-34.0); MCV 83.7 fL (80.0-100.0); MEAN PLATELET VOLUME 9.8 fL (7.4-10.4); MONOCYTES 10.8 % (2-11); NEUTROPHILS 62.5 % (40-80); PLATELET COUNT 450 10x3/uL (130-400); RBC 5.04 10x6/uL (4.20-6.10); RDW 12.5 % (11.5-14.5); WBC 7.7 10x3/uL (4.8-10.8)
[2019-09-08 07:13] LABS: ANION GAP 13.5 mmol/L (8-16); CALCIUM 9.1 mg/dL (8.5-10.1); CARBON DIOXIDE 25.5 mmol/L (21.0-32.0); CREATININE - SERUM 1.3 mg/dL (0.6-1.3)
--- NOTE | 2019-09-08 07:48 | NUR ---
PT RESTING, EYES CLOSED. RR EVEN AND UNLABORED. NO DISTRESS NOTED. BED IN LOWEST POSITION. CALL LIGHT WITHIN REACH. WILL CONTINUE TO MONITOR.
[2019-09-08 08:41] VITALS: BP 130/78
--- NOTE | 2019-09-08 11:06 | NUR ---
I have reviewed this patient and I concur with the Shift Assessment completed by the Licensed Practical Nurse today this shift.
--- NOTE | 2019-09-08 11:16 | NUR ---
PT CURRENTLY IN SHOWER
[2019-09-08 13:00] VITALS: BP 133/92
--- NOTE | 2019-09-08 14:54 | NUR ---
PT ABLE TO TOLERATE 25% OF MEAL.
[2019-09-08] MEDS ORDERED: BACTRIM DS PO (15:17)
--- NOTE | 2019-09-08 16:16 | NUR ---
D/C INSTRUCTIONS REVIEWED. PT VERBALIZED UNDERSTANDING AND DENIES FURTHER QUESTIONS AT THIS TIME. IV D/C WITH CATHETER TIP INTACT. DRESSING PLACED OVER SITE, CDI. WAITING FOR RIDE AT THIS TIME. PT INSTRUCTED TO CALL FOR ASSISTANCE WHEN RIDE ARRIVES.
[2019-09-08 16:38] VITALS: BP 130/91
--- NOTE | 2019-09-08 16:52 | MORECARE ---
CASE MANAGEMENT DISCHARGE SUMMARY PATIENT: DARRELL PENN UNIT: [id number] ADM DATE: 09/06/19 AGE: 24 : [birth year] SEX: M ROOM/BED: D.2136 AUTHOR: WHIT,DOC PHYSICIAN: REFERRING PHYSICIAN: PETTY CASTORENA MD DATE OF SERVICE: 09/08/19 Discharge Plan Patient Name: DARRELL PENN Facility: [facility]:[place] : 1995 Planned Disposition: Home Anticipated Discharge Date: 09/08/19 Discharge Date: Expected LOS: 2 Initial Reviewer: [email or web address] Initial Review Date: 09/08/2019 Generated: 09/08/19 5:52 pm Comments DCP- Discharge Planning Updated by [email or web address]: Yaniv Hernández on 09/08/19 3:[address] Patient Name: DARRELL PENN Admission Status: ER Accout number: [id number] Admission Date: 09-06-2019 : 1995 Admission Diagnosis: Attending: PETTY CASTORENA Current LOS: 2 Anticipated DC Date: 09-08-2019 Planned Disposition: Home Primary Insurance: [place] [employer] Discharge Planning Comments: CM MET WITH PT IN ROOM TO DISCUSS DISCHARGE PLANNING AND NEEDS. PT REPORTS LIVING AT HOME INDEPENDENTLY WITH HIS GIRLFRIEND AND HER PARENTS. PT HAS NO MEDICAL EQUIPMENT AND NO OUTSIDE SERVICES ASSISTING IN THE HOME. CM DISCUSSED AVAILABILITY OF HOME HEALTH, REHAB SERVICES AND MEDICAL EQUIPMENT. PT DENIES DISCHARGE NEEDS, REPORTS HIS GIRLFRIEND WILL PICK HIM UP FOR DISCHARGE HOME. ACCOUNT TECHNICIAN NURSE NOTIFIED. Onshore Diver: Yaniv Hernández DCPIA - Discharge Planning Initial Assessment Updated by [email or web address]: Yaniv Hernández on 09/08/19 4:48 pm * Is the patient Alert and Oriented? Yes * How many steps to enter\exit or inside your home? * PCP DR. NEWTON * Pharmacy [facility] * Preadmission Environment Home with Family * ADLs Independent * Equipment None * Other Equipment NO MEDICAL EQUIPMENT PROVIDER PREFERENCE * List name and contact numbers for known caregivers / representatives who currently or will assist patient after discharge: GUERLINE GIRLFRIEND, * Verbal permission to speak to the caregivers and representatives has been obtained from the patient. N/A * Community resources currently utilized None * Please name any agencies selected above. NONE * Additional services required to return to the preadmission environment? No * Can the patient safely return to the preadmission environment? Yes * Has this patient been hospitalized within the prior 30 days at any hospital? Yes Patient Name: DARRELL PENN Page [phone] at 1652 All edits/amendments must be made on the electronic document DICTATION DATE: 09/08/191651 STATOR PLATE WASHER: DARYL 09/08/191651 RPT#: [id number] DC DATE: STATUS: ADM IN [facility] [address] [place] [address] END OF REPORT
--- NOTE | 2019-09-08 16:55 | NUR ---
PT REQUESTED TO AMBULATE OUT. WAS ESCOURTED TO PERSONAL VEHICLE WITH ALL BELONGINGS.
--- NOTE | 2019-09-09 09:07 | MORECARE ---
CASE MANAGEMENT DISCHARGE SUMMARY PATIENT: DARRELL PENN UNIT: [id number] ADM DATE: 09/06/19 AGE: 24 : [birth year] SEX: M ROOM/BED: D.2136 AUTHOR: WHIT,DOC PHYSICIAN: REFERRING PHYSICIAN: PETTY CASTORENA MD DATE OF SERVICE: 09/09/19 Discharge Plan Patient Name: DARRELL PENN Facility: [facility]:[place] : 1995 Planned Disposition: Home Anticipated Discharge Date: 09/08/19 Discharge Date: 09/08/2019 Expected LOS: 2 Initial Reviewer: [email or web address] Initial Review Date: 09/08/2019 Generated: 09/09/19 10:07 am Comments DCP- Discharge Planning Updated by [email or web address]: Yaniv Hernández on 09/08/19 3:[address] Patient Name: DARRELL PENN Admission Status: ER Accout number: [id number] Admission Date: 09-06-2019 : 1995 Admission Diagnosis: Attending: PETTY CASTORENA Current LOS: 2 Anticipated DC Date: 09-08-2019 Planned Disposition: Home Primary Insurance: [place] [employer] Discharge Planning Comments: CM MET WITH PT IN ROOM TO DISCUSS DISCHARGE PLANNING AND NEEDS. PT REPORTS LIVING AT HOME INDEPENDENTLY WITH HIS GIRLFRIEND AND HER PARENTS. PT HAS NO MEDICAL EQUIPMENT AND NO OUTSIDE SERVICES ASSISTING IN THE HOME. CM DISCUSSED AVAILABILITY OF HOME HEALTH, REHAB SERVICES AND MEDICAL EQUIPMENT. PT DENIES DISCHARGE NEEDS, REPORTS HIS GIRLFRIEND WILL PICK HIM UP FOR DISCHARGE HOME. LAY OUT MACHINE OPERATOR NURSE NOTIFIED. Ampoule Filler And Sealer: Yaniv Hernández DCPIA - Discharge Planning Initial Assessment Updated by [email or web address]: Yaniv Hernández on 09/08/19 4:48 pm * Is the patient Alert and Oriented? Yes * How many steps to enter\exit or inside your home? * PCP DR. NEWTON * Pharmacy [facility] * Preadmission Environment Home with Family * ADLs Independent * Equipment None * Other Equipment NO MEDICAL EQUIPMENT PROVIDER PREFERENCE * List name and contact numbers for known caregivers / representatives who currently or will assist patient after discharge: GUERLINE GIRLFRIEND, * Verbal permission to speak to the caregivers and representatives has been obtained from the patient. N/A * Community resources currently utilized None * Please name any agencies selected above. NONE * Additional services required to return to the preadmission environment? No * Can the patient safely return to the preadmission environment? Yes * Has this patient been hospitalized within the prior 30 days at any hospital? Yes Last DP export: 09/08/19 3:52 p Patient Name: DARRELL PENN Page [phone] at 0907 All edits/amendments must be made on the electronic document DICTATION DATE: 09/09/19905 OFFICE TECHNICIAN: DM 09/09/19905 RPT#: [id number] DC DATE:09/08/19 STATUS: DIS IN [facility] [address] [place] [address] END OF REPORT
== END 2019-09-08 16:56 | disposition home or self-care (01) | DRG 394 ==
LOC: D.ER 11:44 → D.M2 13:32
PROVIDERS: Emergency Medicine; Family Medicine; ADMIT Internal Medicine Nephrology; ATTEND Internal Medicine Nephrology
DX: R11.15 Cyclical vomiting syndrome unrelated to migraine (principal); N17.9 Acute kidney failure, unspecified; E87.1 Hypo-osmolality and hyponatremia; F17.213 Nicotine dependence, cigarettes, with withdrawal; K31.84 Gastroparesis; E87.6 Hypokalemia; F12.288 Cannabis dependence with other cannabis-induced disorder; Z91.19 Patient's noncompliance with other medical treatment and regimen

== ENCOUNTER 2019-10-20 21:55 | Inpatient (IN) | payer MEDICAID ==
[~2019-10-20] VITALS: Ht 180.3 cm; Wt 81.5 kg
[~2019-10-20 21:55] MED LIST changes: +BACTRIM DS PO
--- NOTE | 2019-10-20 22:26 | NUR ---
URINE, FLU SWAB AND BLOOD CULTURES COLLECTED BY LAB
[2019-10-20 22:54] LABS: APPEARANCE CLEAR (CLEAR); BACTERIA FEW /hpf (NEGATIVE); BILIRUBIN NEGATIVE (NEGATIVE); COLOR YELLOW (YELLOW); GLUCOSE NEGATIVE (NEGATIVE); KETONE NEGATIVE (NEGATIVE); NITRITE NEGATIVE (NEGATIVE); PROTEIN 1+ mg/dL (NEGATIVE); RED CELLS - URINE 0-5 /hpf (0-5); UROBILINOGEN NORMAL (NORMAL); WHITE CELLS - URINE OCC /hpf (NEGATIVE)
[2019-10-20 22:54] LABS: WBC 21.2 10x3/uL (4.8-10.8)
[2019-10-20 22:56] LABS: HEMATOCRIT 53.8 % (42.0-54.0); HEMOGLOBIN 20.1 g/dL (13.5-17.5); MCH 29.8 pg (26.0-34.0); MCHC 37.4 g/dL (31.0-37.0); MCV 79.8 fL (80.0-100.0); MEAN PLATELET VOLUME 9.9 fL (7.4-10.4); PLATELET COUNT 677 10x3/uL (130-400); RBC 6.74 10x6/uL (4.20-6.10); RDW 12.4 % (11.5-14.5)
[2019-10-20 23:01] LABS: LYMPHOCYTES 15 % (15-50); MONOCYTES 5 % (2-11); NEUTROPHILS 80 % (40-80); PLATELET ESTIMATE INCREASED
[2019-10-20 23:13] LABS: ALBUMIN 4.4 g/dL (3.4-5.0); BILIRUBIN - TOTAL 0.8 mg/dL (0.2-1.3); CREATININE - SERUM 1.7 mg/dL (0.6-1.3); PROTEIN - SERUM 9.3 g/dL (6.4-8.2)
[2019-10-20 23:19] LABS: UDS - AMPHET NEGATIVE QUAL (NEGATIVE); UDS - BARB NEGATIVE QUAL (NEGATIVE); UDS - BENZO NEGATIVE QUAL (NEGATIVE); UDS - COCAINE NEGATIVE QUAL (NEGATIVE); UDS - OPIATE NEGATIVE QUAL (NEGATIVE); UDS - PCP NEGATIVE QUAL (NEGATIVE); UDS - THC POSITIVE QUAL (NEGATIVE)
[2019-10-20 23:24] LABS: CARBON DIOXIDE 43.5 mmol/L (21.0-32.0); POTASSIUM - SERUM 2.5 mmol/L (3.5-5.1); TROPONIN-I 0.221 ng/mL (0.000-0.060)
[2019-10-20 23:44] VITALS: BP 138/90
--- NOTE | 2019-10-21 00:07 | NUR ---
BRUNO GRAY AT BEDSIDE FOR ASSESSMENT
[2019-10-21 01:22] VITALS: BP 140/90; BMI 25.1
[2019-10-21 02:21] LABS: BASOPHILS 0.1 % (0-2); EOSINOPHILS 0.1 % (0-7); HEMATOCRIT 44.8 % (42.0-54.0); HEMOGLOBIN 16.9 g/dL (13.5-17.5); IMMATURE GRANULOCYTES 0.5 % (0-5); LYMPHOCYTES 8.5 % (15-50); MCH 30.6 pg (26.0-34.0); MCHC 37.7 g/dL (31.0-37.0); MCV 81.2 fL (80.0-100.0); MEAN PLATELET VOLUME 9.4 fL (7.4-10.4); MONOCYTES 9.6 % (2-11); NEUTROPHILS 81.2 % (40-80); RBC 5.52 10x6/uL (4.20-6.10); RDW 12.2 % (11.5-14.5); WBC 18.3 10x3/uL (4.8-10.8)
[2019-10-21 02:22] LABS: PLATELET COUNT 474 10x3/uL (130-400)
[2019-10-21 02:49] LABS: ALBUMIN 3.3 g/dL (3.4-5.0); ALKALINE PHOSPHATASE 63 U/L (46-116); BILIRUBIN - TOTAL 0.48 mg/dL (0.2-1.3); CALC OSMOLALITY 266 mosm/kg (275-300); CALCIUM 8.7 mg/dL (8.5-10.1); CKMB 1.4 U/L (0.0-3.6); CREATINE KINASE 23 UL (21-232); CREATININE - SERUM 1.6 mg/dL (0.6-1.3); GLUCOSE 96 mg/dL (74-106); MAGNESIUM - SERUM 2.2 mg/dL (1.8-2.4); PHOSPHOROUS 2.9 mg/dL (2.5-4.9); SODIUM 127 mmol/L (136-145); UREA NITROGEN 46 mg/dL (7-18); eGFR NON AFRICAN AMERICAN 57 mL/min (90-120)
[2019-10-21 02:50] LABS: ALT (SGPT) 17 U/L (10-68); CHLORIDE - SERUM 85 mmol/L (98-107); PROTEIN - SERUM 6.9 g/dL (6.4-8.2); TROPONIN-I 0.373 ng/mL (0.000-0.060)
[2019-10-21 02:52] LABS: CARBON DIOXIDE 41.6 mmol/L (21.0-32.0); POTASSIUM - SERUM 2.5 mmol/L (3.5-5.1)
[2019-10-21 04:47] VITALS: BP 133/88
--- NOTE | 2019-10-21 07:30 | NUR ---
PT RESTING. RR EVEN AND UNLBAORED. 2 IVS NOTED TO LEFT FOREARM INFUSING NS. WATER RECIEVED PER REQUEST. DENIES FURTHER NEEDS OR PAIN AT THIS TIME. BED IN LOWEST POSITION. CALL LIGHT WITHIN REACH. WILL CONTINUE TO MONITOR.
[2019-10-21 08:00] VITALS: BP 129/67
[2019-10-21 13:45] VITALS: Ht 180.3 cm; Wt 81.5 kg
--- NOTE | 2019-10-21 15:07 | NUR ---
I have reviewed this patient and I concur with the Shift Assessment completed by the Licensed Practical Nurse today this shift.
[2019-10-21 17:16] VITALS: BP 123/75
--- NOTE | 2019-10-21 19:31 | NUR ---
EVENING ROUNDS COMPLETED. VSS, AAOX4, NO S/S OF DISTRESS. PT ALSO DENIES ANY VOMITING AT THIS TIME. SPUTUM CUP AND URINE CUP IN PT ROOM. PT DENIES ANY NEED FOR PAIN AT THIS TIME. WILL CPOC. CL WITHIN REACH.
[2019-10-21 20:00] VITALS: BP 119/76
[2019-10-22] VITALS: BP 126/67
[2019-10-22 04:00] VITALS: BP 106/69
[2019-10-22 06:33] LABS: BASOPHILS 0.2 % (0-2); EOSINOPHILS 2.4 % (0-7); HEMATOCRIT 38.8 % (42.0-54.0); HEMOGLOBIN 13.6 g/dL (13.5-17.5); IMMATURE GRANULOCYTES 1.5 % (0-5); LYMPHOCYTES 22.3 % (15-50); MCH 29.3 pg (26.0-34.0); MCHC 35.1 g/dL (31.0-37.0); MEAN PLATELET VOLUME 9.7 fL (7.4-10.4); MONOCYTES 11.5 % (2-11); NEUTROPHILS 62.1 % (40-80); PLATELET COUNT 383 10x3/uL (130-400); RBC 4.64 10x6/uL (4.20-6.10); RDW 12.4 % (11.5-14.5)
[2019-10-22 06:48] LABS: ANION GAP 4.9 mmol/L (8-16); CALCIUM 8.5 mg/dL (8.5-10.1); CARBON DIOXIDE 33.7 mmol/L (21.0-32.0); CREATININE - SERUM 1.3 mg/dL (0.6-1.3); MAGNESIUM - SERUM 1.8 mg/dL (1.8-2.4)
[2019-10-22 06:49] LABS: MCV 83.6 fL (80.0-100.0); WBC 10.9 10x3/uL (4.8-10.8)
[2019-10-22 07:30] LABS: PHOSPHOROUS 1.1 mg/dL (2.5-4.9); POTASSIUM - SERUM 2.6 mmol/L (3.5-5.1)
--- NOTE | 2019-10-22 07:35 | NUR ---
AWAKE AND ALERT. DENIES ANY NEEDS. TELEMERTY SHOWS SR. LEFT FA WITH NS AT 125. SR UP WITH CALL LIGHT IN REACH
[2019-10-22 08:50] VITALS: BP 123/64
[2019-10-22 09:59] LABS: AMYLASE - SERUM 100 U/L (25-115); LIPASE 379 U/L (73-393)
--- NOTE | 2019-10-22 14:11 | NUR ---
DENIES ANY NEEDS. WANTING TO GO HOME. AWAITING DOCTOR. SR UP WITH CALL LIGHT IN REACH
[2019-10-22 14:17] VITALS: BP 130/74
[2019-10-22 16:00] VITALS: BP 134/71
--- NOTE | 2019-10-22 19:54 | NUR ---
EVENING ROUNDS COMPLETED. AAOX4, NO S/S OF DISTRESS. PT DENIES N/V AT THIS TIME. WILL CPOC.
[2019-10-22 20:00] VITALS: BP 126/71
[2019-10-23] VITALS: BP 128/70
[2019-10-23 04:00] VITALS: BP 118/56
[2019-10-23 05:23] LABS: BASOPHILS 0.2 % (0-2); EOSINOPHILS 2.7 % (0-7); HEMATOCRIT 37.6 % (42.0-54.0); HEMOGLOBIN 13.2 g/dL (13.5-17.5); IMMATURE GRANULOCYTES 2.2 % (0-5); MCH 29.3 pg (26.0-34.0); MCHC 35.1 g/dL (31.0-37.0); MCV 83.6 fL (80.0-100.0); MEAN PLATELET VOLUME 9.4 fL (7.4-10.4); MONOCYTES 11.7 % (2-11); NEUTROPHILS 60.2 % (40-80); PLATELET COUNT 349 10x3/uL (130-400); RDW 12.3 % (11.5-14.5); WBC 8.6 10x3/uL (4.8-10.8)
[2019-10-23 05:51] LABS: ANION GAP 8.2 mmol/L (8-16); CALCIUM 8.7 mg/dL (8.5-10.1); CREATININE - SERUM 1.4 mg/dL (0.6-1.3); MAGNESIUM - SERUM 1.5 mg/dL (1.8-2.4); POTASSIUM - SERUM 3.2 mmol/L (3.5-5.1)
[2019-10-23 05:56] LABS: PHOSPHOROUS 1.8 mg/dL (2.5-4.9)
--- NOTE | 2019-10-23 07:47 | NUR ---
ALERT AND ORIENTED. TELEMERTY SHOWS SR. RIGHT HAND IV PATENT. DENIES ANY NEEDS. SR UP WITH CALL LIGHT IN REACH.
[2019-10-23 09:48] VITALS: BP 140/97
--- NOTE | 2019-10-23 10:06 | NUR ---
I have reviewed this patient and I concur with the Shift Assessment completed by the Licensed Practical Nurse today this shift.
[2019-10-23] MEDS ORDERED: FLAGYL500 MG PO (10:31)
[2019-10-23] MEDS ORDERED: LEVAQUIN750 MG PO (10:31)
[2019-10-23] MEDS ORDERED: K-DUR20 MEQ PO (10:32)
--- NOTE | 2019-10-23 12:41 | NUR ---
Nutrition Follow-up: Tolerating PO. Noted plans to d/c. Diet: Full Liquid PO intake: 80% avg x 4 meals No new wt - daily wts ordered Labs noted: Na 135, K+ 3.2, PO4 1.8, Mg 1.5 Meds noted: Carafate, Reglan, Neutra Phos, KDur, MagOx, NS @ 125 -Rec ADAT. -Need new wt. -RD following.
[2019-10-23 13:12] LABS: MAGNESIUM - SERUM 1.5 mg/dL (1.8-2.4); POTASSIUM - SERUM 3.8 mmol/L (3.5-5.1)
--- NOTE | 2019-10-23 13:47 | NUR ---
PT IS DISCHARGED. IV DCD WITH TIP INTACK. INSTRUCTIONS GIVEN TO PT. AWAITING HIS TRANSPORTATION.
--- NOTE | 2019-10-23 15:10 | MORECARE ---
CASE MANAGEMENT DISCHARGE SUMMARY PATIENT: DARRELL PENN UNIT: [id number] ADM DATE: 10/20/19 AGE: 24 : [birth year] SEX: M ROOM/BED: D.2123 AUTHOR: MALKA SHERMAN PHYSICIAN: REFERRING PHYSICIAN: PETTY CASTORENA MD DATE OF SERVICE: 10/23/19 Discharge Plan Patient Name: DARRELL PENN Facility: [facility]:[place] : 1995 Planned Disposition: Home Anticipated Discharge Date: 10/23/19 Discharge Date: 10/23/2019 Expected LOS: 3 Initial Reviewer: [email or web address] Initial Review Date: 10/23/2019 Generated: 10/23/19 4:10 pm DCPIA - Discharge Planning Initial Assessment Updated by [email or web address]: Yaniv Hernández on 10/23/19 3:08 pm * Is the patient Alert and Oriented? Yes * How many steps to enter\exit or inside your home? * PCP DR. NEWTON * Pharmacy [facility] * Preadmission Environment Home with Family * ADLs Independent * Equipment None * Other Equipment NO MEDICAL EQUIPMENT PROVIDER PREFERENCE * List name and contact numbers for known caregivers / representatives who currently or will assist patient after discharge: GUERLINE POOL, GIRLFRIEND, ; [phone] * Verbal permission to speak to the caregivers and representatives has been obtained from the patient. N/A * Community resources currently utilized None * Please name any agencies selected above. NONE * Additional services required to return to the preadmission environment? No * Can the patient safely return to the preadmission environment? Yes * Has this patient been hospitalized within the prior 30 days at any hospital? No Patient Name: DARRELL PENN Page [id number] at 1510 All edits/amendments must be made on the electronic document DICTATION DATE: 10/23/19 151 RN ACCESS: DARYL 10/23/19 151 RPT#: [id number] DC DATE:10/23/19 STATUS: DIS IN [facility] [id number] [place] [address] END OF REPORT
--- NOTE | 2019-10-23 15:18 | MORECARE ---
CASE MANAGEMENT DISCHARGE SUMMARY PATIENT: DARRELL PENN UNIT: [id number] ADM DATE: 10/20/19 AGE: 24 : [birth year] SEX: M ROOM/BED: D.0923 AUTHOR: WHIT,DOC PHYSICIAN: REFERRING PHYSICIAN: PETTY CASTORENA MD DATE OF SERVICE: 10/23/19 Discharge Plan Patient Name: DARRELL PENN Facility: [facility]:[place] : 1995 Planned Disposition: Home Anticipated Discharge Date: 10/23/19 Discharge Date: 10/23/2019 Expected LOS: 3 Initial Reviewer: [email or web address] Initial Review Date: 10/23/2019 Generated: 10/23/19 4:17 pm Comments DCP- Discharge Planning Updated by [email or web address]: Yaniv Hernández on 10/23/19 2:[address] Patient Name: DARRELL PENN Admission Status: ER Accout number: [id number] Admission Date: 10-20-2019 : 1995 Admission Diagnosis: Attending: PETTY CASTORENA Current LOS: 3 Anticipated DC Date: 10-23-2019 Planned Disposition: Home Primary Insurance: [place] [employer] Discharge Planning Comments: CM MET WITH PT IN ROOM TO DISCUSS DISCHARGE PLANNING AND NEEDS. PT REPORTS LIVING AT HOME INDEPENDENTLY WITH HIS GIRLFRIEND AND HER PARENTS. PT HAS NO MEDICAL EQUIPMENT AND NO OUTSIDE SERVICES ASSISTING IN THE HOME. CM DISCUSSED AVAILABILITY OF HOME HEALTH, REHAB SERVICES AND MEDICAL EQUIPMENT. PT DENIES DISCHARGE NEEDS, REPORTS GIRLFRIEND WILL PICK HIM UP FOR DISCHARGE HOME. CLOTH COLORS EXAMINER NURSE NOTIFIED. Delivery Architect: Yaniv Hernández DCPIA - Discharge Planning Initial Assessment Updated by [email or web address]: Yaniv Hernández on 10/23/19 3:08 pm * Is the patient Alert and Oriented? Yes * How many steps to enter\exit or inside your home? * PCP DR. NEWTON * Pharmacy [facility] * Preadmission Environment Home with Family * ADLs Independent * Equipment None * Other Equipment NO MEDICAL EQUIPMENT PROVIDER PREFERENCE * List name and contact numbers for known caregivers / representatives who currently or will assist patient after discharge: GUERLINE POOL, GIRLFRIEND, ; [phone] * Verbal permission to speak to the caregivers and representatives has been obtained from the patient. N/A * Community resources currently utilized None * Please name any agencies selected above. NONE * Additional services required to return to the preadmission environment? No * Can the patient safely return to the preadmission environment? Yes * Has this patient been hospitalized within the prior 30 days at any hospital? No Last DP export: 10/23/19 2:10 Patient Name: DARRELL PENN Page 05396 at 1518 All edits/amendments must be made on the electronic document DICTATION DATE: 10/23/191516 METAL SMELTER: DARYL 10/23/191516 RPT#: [id number] DC DATE:10/23/19 STATUS: DIS IN [facility] [address] [place] [address] END OF REPORT
--- NOTE | 2019-10-29 04:23 | NUR ---
DIANA STOP TIME 7313 10/20/19
== END 2019-10-23 14:20 | disposition home or self-care (01) | DRG 640 ==
LOC: D.ER 21:55 → D.M2 23:49
PROVIDERS: Family Medicine; ADMIT Internal Medicine Nephrology; ATTEND Internal Medicine Nephrology
DX: E87.1 Hypo-osmolality and hyponatremia (principal); J96.01 Acute respiratory failure with hypoxia; J96.02 Acute respiratory failure with hypercapnia; R65.10 Systemic inflammatory response syndrome (SIRS) of non-infectious origin without acute organ dysfunction; N17.9 Acute kidney failure, unspecified; E86.0 Dehydration; F12.90 Cannabis use, unspecified, uncomplicated; E87.6 Hypokalemia; K31.84 Gastroparesis; Z91.19 Patient's noncompliance with other medical treatment and regimen; F12.20 Cannabis dependence, uncomplicated; K44.9 Diaphragmatic hernia without obstruction or gangrene

== ENCOUNTER 2019-11-20 18:40 | Inpatient (IN) | payer BC ==
[~2019-11-20] VITALS: Ht 180.3 cm; Wt 81.6 kg
[~2019-11-20 18:40] MED LIST changes: +FLAGYL500 MG PO; +K-DUR20 MEQ PO; +LEVAQUIN750 MG PO
[2019-11-20 19:15] LABS: BASOPHILS 0.1 % (0-2); EOSINOPHILS 0.1 % (0-7); HEMATOCRIT 51.8 % (42.0-54.0); HEMOGLOBIN 19.9 g/dL (13.5-17.5); IMMATURE GRANULOCYTES 0.4 % (0-5); LYMPHOCYTES 11.3 % (15-50); MCH 30.5 pg (26.0-34.0); MCHC 38.4 g/dL (31.0-37.0); MCV 79.3 fL (80.0-100.0); MEAN PLATELET VOLUME 9.5 fL (7.4-10.4); MONOCYTES 9.4 % (2-11); NEUTROPHILS 78.7 % (40-80); RDW 12.4 % (11.5-14.5); WBC 18.6 10x3/uL (4.8-10.8)
[2019-11-20 19:17] LABS: PLATELET COUNT 599 10x3/uL (130-400); RBC 6.53 10x6/uL (4.20-6.10)
[2019-11-20 19:27] LABS: ALBUMIN 4.7 g/dL (3.4-5.0); BILIRUBIN - TOTAL 1.36 mg/dL (0.2-1.3); CALCIUM 10.7 mg/dL (8.5-10.1); CREATININE - SERUM 1.5 mg/dL (0.6-1.3); PROTEIN - SERUM 9.4 g/dL (6.4-8.2)
[2019-11-20 19:28] LABS: ANION GAP 8.3 mmol/L (8-16)
[2019-11-20 19:33] LABS: CARBON DIOXIDE 44.2 mmol/L (21.0-32.0); POTASSIUM - SERUM 2.5 mmol/L (3.5-5.1)
--- NOTE | 2019-11-20 21:32 | NUR ---
PATIENT IN WITH C/O ABD PAIN, NAUSEA/VOMITTING STARTED ON SATURDAY AND HAS GOTTEN WORSE, FRIEND AT BEDSIDE.
[2019-11-20 23:38] VITALS: BP 145/87; BMI 25.1
[2019-11-21] VITALS: BP 145/87
[2019-11-21 04:00] VITALS: BP 130/83
[2019-11-21 06:16] LABS: BASOPHILS 0.1 % (0-2); EOSINOPHILS 0.3 % (0-7); HEMOGLOBIN 17.3 g/dL (13.5-17.5); IMMATURE GRANULOCYTES 0.3 % (0-5); LYMPHOCYTES 18.9 % (15-50); MCH 29.8 pg (26.0-34.0); MCHC 36.8 g/dL (31.0-37.0); MEAN PLATELET VOLUME 9.7 fL (7.4-10.4); MONOCYTES 13.8 % (2-11); NEUTROPHILS 66.6 % (40-80); PLATELET COUNT 490 10x3/uL (130-400); RDW 12.5 % (11.5-14.5); WBC 14.8 10x3/uL (4.8-10.8)
[2019-11-21 06:38] LABS: CALCIUM 9.4 mg/dL (8.5-10.1); CREATININE - SERUM 1.3 mg/dL (0.6-1.3); MAGNESIUM - SERUM 2.5 mg/dL (1.8-2.4); PHOSPHOROUS 2.9 mg/dL (2.5-4.9)
[2019-11-21 06:39] LABS: ANION GAP 6.8 mmol/L (8-16); CARBON DIOXIDE 42.8 mmol/L (21.0-32.0); POTASSIUM - SERUM 2.6 mmol/L (3.5-5.1)
--- NOTE | 2019-11-21 07:46 | NUR ---
PT RESTING IN BED WITH EYES CLOSED, NO S/S OF DISTRESS NOTED AT THIS TIME. IV LOCATED TO RIGHT FA RUNNING NS @ 125 AND K+. WILL CONT TO MONITOR.
--- NOTE | 2019-11-21 08:40 | NUR ---
PT VOMITTING, ADMINISTERED ZOPHRAN PER DRS ORDERS.
[2019-11-21 09:02] LABS: UDS - AMPHET NEGATIVE QUAL (NEGATIVE); UDS - BARB NEGATIVE QUAL (NEGATIVE); UDS - BENZO NEGATIVE QUAL (NEGATIVE); UDS - COCAINE NEGATIVE QUAL (NEGATIVE); UDS - OPIATE NEGATIVE QUAL (NEGATIVE); UDS - PCP NEGATIVE QUAL (NEGATIVE); UDS - THC POSITIVE QUAL (NEGATIVE)
[2019-11-21 09:33] VITALS: BP 146/95
[2019-11-21 10:24] VITALS: Ht 180.3 cm; Wt 81.6 kg
[2019-11-21 13:47] VITALS: BP 122/77
--- NOTE | 2019-11-21 16:33 | NUR ---
PT RESTING IN BED WATCHING TV, NO S/S OF DISTRESS AT THIS TIME, STATES HE IS FEELING BETTER THAN HE WAS. WILL CONT TO MONITOR.
[2019-11-21 17:35] VITALS: BP 116/69
[2019-11-21 20:00] VITALS: BP 104/71
--- NOTE | 2019-11-21 20:00 | NUR ---
ALERT SITTING UP IN BED, DENIES PAIN OR NAUSEA, SEE SHIFT ASSESSMENT, CALL LIGHT IN REACH
[2019-11-22] VITALS: BP 112/69
[2019-11-22 04:00] VITALS: BP 117/61
[2019-11-22 05:42] LABS: BASOPHILS 0.1 % (0-2); EOSINOPHILS 1.3 % (0-7); HEMATOCRIT 39.9 % (42.0-54.0); IMMATURE GRANULOCYTES 0.8 % (0-5); LYMPHOCYTES 28.8 % (15-50); MCHC 35.1 g/dL (31.0-37.0); MCV 82.8 fL (80.0-100.0); MEAN PLATELET VOLUME 9.8 fL (7.4-10.4); MONOCYTES 11.7 % (2-11); NEUTROPHILS 57.3 % (40-80); PLATELET COUNT 364 10x3/uL (130-400); RBC 4.82 10x6/uL (4.20-6.10); RDW 12.2 % (11.5-14.5); WBC 8.7 10x3/uL (4.8-10.8)
[2019-11-22 06:10] LABS: ANION GAP 7.1 mmol/L (8-16); CALCIUM 8.6 mg/dL (8.5-10.1); CREATININE - SERUM 1.3 mg/dL (0.6-1.3); MAGNESIUM - SERUM 1.9 mg/dL (1.8-2.4); PHOSPHOROUS 1.8 mg/dL (2.5-4.9); POTASSIUM - SERUM 3.1 mmol/L (3.5-5.1)
--- NOTE | 2019-11-22 08:50 | NUR ---
PT WANTING FOOD, CONT TO MONITOR PAIN AND NAUSEA, IV INFUSING WITH POTASSIUM, LEVEL REMAINS LOW
[2019-11-22 08:53] VITALS: BP 120/79
--- NOTE | 2019-11-22 12:29 | NUR ---
1100 PT WANTING TO SPEAK WITH SOMEONE ABOUT HIS INSURANCE, STATES THAT HE CAN NOT STAY HERE AND KEEP RUNNING UP A BILL
[2019-11-22 12:56] VITALS: BP 127/81
--- NOTE | 2019-11-22 17:06 | NUR ---
1614 REVIEWED DC ORDERS WITH PT, REMOVED IV, TIP INTACT
--- NOTE | 2019-11-22 17:07 | NUR ---
1630 TAKEN TO PRIVATE VEHICLE PER WC
== END 2019-11-22 16:30 | disposition home or self-care (01) | DRG 392 ==
LOC: D.ER 18:40 → D.MS 20:33 → OBSVTIME 11-21 → D.MS 11-21 12:38
PROVIDERS: Emergency Medicine; ADMIT Internal Medicine Nephrology; ATTEND Internal Medicine Nephrology
DX: K31.84 Gastroparesis (principal); N17.9 Acute kidney failure, unspecified; E87.1 Hypo-osmolality and hyponatremia; E87.6 Hypokalemia; F12.90 Cannabis use, unspecified, uncomplicated; Z91.19 Patient's noncompliance with other medical treatment and regimen

== ENCOUNTER 2020-01-13 20:03 | Inpatient (IN) | payer MEDICAID ==
[~2020-01-13] VITALS: Ht 182.9 cm; Wt 80.5 kg
[2020-01-13 21:00] VITALS: BP 134/95
[2020-01-13 21:46] LABS: BASOPHILS 0.1 % (0-2); EOSINOPHILS 0 % (0-7); HEMATOCRIT 52.4 % (42.0-54.0); HEMOGLOBIN 19.4 g/dL (13.5-17.5); IMMATURE GRANULOCYTES 0.3 % (0-5); LYMPHOCYTES 13.2 % (15-50); MCH 29.5 pg (26.0-34.0); MCV 79.6 fL (80.0-100.0); MEAN PLATELET VOLUME 9.7 fL (7.4-10.4); MONOCYTES 10.5 % (2-11); NEUTROPHILS 75.9 % (40-80); RDW 12.8 % (11.5-14.5); WBC 11.8 10x3/uL (4.8-10.8)
[2020-01-13 21:50] LABS: PLATELET COUNT 703 10x3/uL (130-400); RBC 6.58 10x6/uL (4.20-6.10)
[2020-01-13 21:53] LABS: ALBUMIN 4.8 g/dL (3.4-5.0); ALKALINE PHOSPHATASE 82 U/L (30-120); ALT (SGPT) 17 U/L (10-68); AMYLASE - SERUM 80 U/L (25-115); BILIRUBIN - TOTAL 0.79 mg/dL (0.2-1.3); CALC OSMOLALITY 264 mosm/kg (275-300); CALCIUM 10.8 mg/dL (8.5-10.1); CREATININE - SERUM 1.8 mg/dL (0.6-1.3); GLUCOSE 117 mg/dL (74-106); LIPASE 61 U/L (73-393); PROTEIN - SERUM 9.5 g/dL (6.4-8.2); SODIUM 125 mmol/L (136-145); UREA NITROGEN 47 mg/dL (7-18); eGFR NON AFRICAN AMERICAN 50 mL/min (90-120)
[2020-01-13 22:00] VITALS: BP 134/84
[2020-01-13 22:01] LABS: TROPONIN-I < 0.017 ng/mL (0.000-0.060)
[2020-01-13 22:03] LABS: POTASSIUM - SERUM 2.1 mmol/L (3.5-5.1)
[2020-01-13 22:04] LABS: CARBON DIOXIDE 42.7 mmol/L (21.0-32.0); CHLORIDE - SERUM 75 mmol/L (98-107)
--- NOTE | 2020-01-14 00:21 | NUR ---
RECEIVED PATIENT TO ROOM 2110 VIA STRETCHER. NO S/S OF DISTRESS OBSERVED, RR EVEN AND UNLABORED ON ROOM AIR. VSS. PIV TO LT AC INFUSING POTASSIUM RIDER AND LR BOLUS. PATIENT C/O OF PAIN AT IV SITE. MULTIPLE ATTEMPTS TO RESITE FINALLY RESULTED IN SUCCESSFUL PIV TO LT HAND, IV FLUIDS RESUMED. QUICK START, MED REC, SRS, ADULT HX COMPLETED. PATIENT DENIES NEEDS AT THIS TIME. CL IN REACH, BED LOCKED AND LOWERED. WILL CTM.
[2020-01-14 00:39] VITALS: BP 141/95; BMI 24.4
--- NOTE | 2020-01-14 03:38 | NUR ---
I have reviewed this patient and I concur with the Shift Assessment completed by the Licensed Practical Nurse today this shift.
[2020-01-14 04:00] VITALS: BP 125/75
[2020-01-14 06:52] LABS: CALCIUM 9.6 mg/dL (8.5-10.1); CREATININE - SERUM 1.6 mg/dL (0.6-1.3); MAGNESIUM - SERUM 2.5 mg/dL (1.8-2.4); PHOSPHOROUS 3.2 mg/dL (2.5-4.9)
[2020-01-14 07:10] LABS: POTASSIUM - SERUM 2.1 mmol/L (3.5-5.1)
[2020-01-14 07:11] LABS: CARBON DIOXIDE 41.1 mmol/L (21.0-32.0)
[2020-01-14 07:12] LABS: BASOPHILS 0.1 % (0-2); EOSINOPHILS 0 % (0-7); HEMATOCRIT 46.4 % (42.0-54.0); IMMATURE GRANULOCYTES 0.3 % (0-5); LYMPHOCYTES 14.9 % (15-50); MCH 29.8 pg (26.0-34.0); MCHC 36.6 g/dL (31.0-37.0); MCV 81.3 fL (80.0-100.0); MEAN PLATELET VOLUME 9.5 fL (7.4-10.4); MONOCYTES 14.4 % (2-11); NEUTROPHILS 70.3 % (40-80); PLATELET COUNT 631 10x3/uL (130-400); RBC 5.71 10x6/uL (4.20-6.10); RDW 12.8 % (11.5-14.5); WBC 12.5 10x3/uL (4.8-10.8)
[2020-01-14 08:57] VITALS: BP 125/89
[2020-01-14 12:02] VITALS: BP 124/83
[2020-01-14 13:01] VITALS: Ht 182.9 cm; Wt 80.5 kg
[2020-01-14 14:30] LABS: UDS - AMPHET NEGATIVE QUAL (NEGATIVE); UDS - BARB NEGATIVE QUAL (NEGATIVE); UDS - BENZO NEGATIVE QUAL (NEGATIVE); UDS - COCAINE NEGATIVE QUAL (NEGATIVE); UDS - OPIATE NEGATIVE QUAL (NEGATIVE); UDS - PCP NEGATIVE QUAL (NEGATIVE); UDS - THC POSITIVE QUAL (NEGATIVE)
[2020-01-14 14:37] LABS: BILIRUBIN NEGATIVE (NEGATIVE); GLUCOSE NEGATIVE (NEGATIVE); KETONE MODERATE mg/dL (NEGATIVE); NITRITE NEGATIVE (NEGATIVE); SPECIFIC GRAVITY 1.005 (1.005-1.020); UROBILINOGEN NORMAL (NORMAL)
[2020-01-14 14:38] LABS: BACTERIA FEW /hpf (NEGATIVE); EPITHELIAL CELLS 0-5 /hpf (0-5); RED CELLS - URINE 0-5 /hpf (0-5); WHITE CELLS - URINE 0-5 /hpf (NEGATIVE)
[2020-01-14 17:07] VITALS: BP 123/79
--- NOTE | 2020-01-14 19:15 | NUR ---
REPORT RECEIVED, WILL CONTINUE POC. PATIENT IS AAOX4, SITTING UP IN BED. NO S/S OF DISTRESS, RR EVEN AND UNLABORED ON ROOM AIR. PIV TO LT HAND, PATENT, INFUSING NS @ 125, DRSG C/D/I. PATIENT DENIES NEEDS AT THIS TIME. CL IN REACH, BED LOCKED AND LOWERED. WILL CTM.
[2020-01-14 20:00] VITALS: BP 127/78
--- NOTE | 2020-01-14 20:00 | NUR ---
RECEIVED K+ RESULTS 2.9 TREATED PER PROTOCOL. CIRCLED HEMATOMA TO RT AC TO MONITOR. PATIENT DENIES NEEDS AT THIS TIME.
--- NOTE | 2020-01-14 22:15 | NUR ---
ADMINISTERED 2ND DOSE OF K-DUR PER ELECTROLYTE PROTOCOL.
[2020-01-15] VITALS: BP 111/66
--- NOTE | 2020-01-15 03:04 | NUR ---
I have reviewed this patient and I concur with the Shift Assessment completed by the Licensed Practical Nurse today this shift.
[2020-01-15 04:00] VITALS: BP 117/65
[2020-01-15 05:03] LABS: BASOPHILS 0.3 % (0-2); EOSINOPHILS 1.3 % (0-7); HEMATOCRIT 40.1 % (42.0-54.0); HEMOGLOBIN 14.2 g/dL (13.5-17.5); IMMATURE GRANULOCYTES 0.8 % (0-5); LYMPHOCYTES 27.6 % (15-50); MCH 29.2 pg (26.0-34.0); MCHC 35.4 g/dL (31.0-37.0); MCV 82.3 fL (80.0-100.0); MEAN PLATELET VOLUME 9.2 fL (7.4-10.4); MONOCYTES 13.6 % (2-11); NEUTROPHILS 56.4 % (40-80); RBC 4.87 10x6/uL (4.20-6.10); RDW 12.5 % (11.5-14.5)
[2020-01-15 05:05] LABS: PLATELET COUNT 442 10x3/uL (130-400); WBC 7.6 10x3/uL (4.8-10.8)
[2020-01-15 05:16] LABS: ANION GAP 7.4 mmol/L (8-16); CALCIUM 8.6 mg/dL (8.5-10.1); CARBON DIOXIDE 33.7 mmol/L (21.0-32.0); CREATININE - SERUM 1.3 mg/dL (0.6-1.3); MAGNESIUM - SERUM 2.1 mg/dL (1.8-2.4); POTASSIUM - SERUM 3.1 mmol/L (3.5-5.1)
[2020-01-15 05:23] LABS: PHOSPHOROUS 1.4 mg/dL (2.5-4.9)
--- NOTE | 2020-01-15 07:52 | NUR ---
PT LYING IN BED. RESTING QUIETLY. PT STATES HE HAS NO FURTHER NEEDS AT THIS TIME. BED LOW. CL IN REACH.
[2020-01-15 08:52] VITALS: BP 121/81
[2020-01-15 12:46] VITALS: BP 129/94
--- NOTE | 2020-01-15 13:00 | NUR ---
PT TOOK SHOWER WITHOUT ANY ASSISTANCE. SECURITY COORDINATOR DID A COMPLETE LINEN CHANGE.
--- NOTE | 2020-01-15 14:17 | NUR ---
I have reviewed this patient and I concur with the Shift Assessment completed by the Licensed Practical Nurse today this shift.
[2020-01-15 17:42] VITALS: BP 106/73
[2020-01-15 20:44] VITALS: BP 111/69
[2020-01-16 01:16] VITALS: BP 93/66
[2020-01-16 01:21] VITALS: BP 113/64
[2020-01-16 05:45] VITALS: BP 118/70
[2020-01-16 05:58] LABS: BASOPHILS 0.1 % (0-2); EOSINOPHILS 1.4 % (0-7); HEMATOCRIT 40.7 % (42.0-54.0); HEMOGLOBIN 14.3 g/dL (13.5-17.5); IMMATURE GRANULOCYTES 0.6 % (0-5); LYMPHOCYTES 30.1 % (15-50); MCH 29.3 pg (26.0-34.0); MCHC 35.1 g/dL (31.0-37.0); MCV 83.4 fL (80.0-100.0); MEAN PLATELET VOLUME 9.3 fL (7.4-10.4); MONOCYTES 9.7 % (2-11); NEUTROPHILS 58.1 % (40-80); PLATELET COUNT 443 10x3/uL (130-400); RBC 4.88 10x6/uL (4.20-6.10); RDW 12.7 % (11.5-14.5); WBC 7.2 10x3/uL (4.8-10.8)
[2020-01-16 06:13] LABS: CALC OSMOLALITY 279 mosm/kg (275-300); CALCIUM 9.1 mg/dL (8.5-10.1); CARBON DIOXIDE 28.7 mmol/L (21.0-32.0); CHLORIDE - SERUM 103 mmol/L (98-107); CREATININE - SERUM 1.2 mg/dL (0.6-1.3); GLUCOSE 96 mg/dL (74-106); MAGNESIUM - SERUM 1.9 mg/dL (1.8-2.4); POTASSIUM - SERUM 3.8 mmol/L (3.5-5.1); SODIUM 139 mmol/L (136-145); eGFR NON AFRICAN AMERICAN 80 mL/min (90-120)
[2020-01-16 06:24] LABS: PHOSPHOROUS 2.4 mg/dL (2.5-4.9); UREA NITROGEN 18 mg/dL (7-18)
--- NOTE | 2020-01-16 07:00 | NUR ---
RECEIVED REPORT. ASSUMED CARE OF PATIENT. PATIENT RESTING IN BED ON LEFT LATERAL SIDE WITH EYES CLOSED. RESP EVEN AND UNLABORED. NO DISTRESS. CALL LIGHT WITHIN REACH.
[2020-01-16 09:04] VITALS: BP 128/93
--- NOTE | 2020-01-16 09:30 | NUR ---
PATIENT SITTING UP IN BED. 100% AM MEAL CONSUMED. PATIENT REFUSED NICOTINE PATCH. NO DISTRESS. CALL LIGHT WITHIN REACH.
--- NOTE | 2020-01-16 10:50 | NUR ---
PATIENT WAITING FOR HIS RIDE TO PICK HIM UP.
--- NOTE | 2020-01-16 10:53 | NUR ---
22 GAUGE IV REMOVED FROM LEFT WRIST. CATHETER TIP INTACT. NO BLEEDING FROM SITE. 2X2 GAUZE APPLIED AND SECURED WITH BANDAID. PATIENT IS DISCHARGING TO HOME. TOLERATED IV REMOVAL WELL.
--- NOTE | 2020-01-16 10:54 | NUR ---
TELEMETRY REMOVED. DISCHARGE INSTRUCTIONS PROVIDED TO PATIENT. PATIENT VERBALIZED UNDERSTANDING OF ALL INSTRUCTIONS PROVIDED.
--- NOTE | 2020-01-16 11:15 | MORECARE ---
CASE MANAGEMENT DISCHARGE SUMMARY PATIENT: DARRELL PENN UNIT: [id number] ADM DATE: 01/13/20 AGE: 24 : [birth year] SEX: M ROOM/BED: D.2111 AUTHOR: MALKA SHERMAN PHYSICIAN: REFERRING PHYSICIAN: PETTY CASTORENA MD DATE OF SERVICE: 01/16/20 Discharge Plan Patient Name: DARRELL PENN Facility: [facility]:[place] : 1995 Planned Disposition: Anticipated Discharge Date: Discharge Date: Expected LOS: Initial Reviewer: [email or web address] Initial Review Date: 01/16/2020 Generated: 01/16/20 12:14 pm Comments DCP- Discharge Planning Updated by [email or web address]: Luz Marina Logan on 01/16/20 10:[address] Patient Name: DARRELL PENN Admission Status: ER Accout number: [id number] Admission Date: 01-13-2020 : 1995 Admission Diagnosis: Attending: PETTY CASTORENA Current LOS: 3 Anticipated DC Date: Planned Disposition: Primary Insurance: [place] [employer] Discharge Planning Comments: CM MET WITH PATIENT AFTER OBTAINING VERBAL CONSENT. DENIES NEEDS FOR HH, REHAB OR MEDICAL EQUIPMENT. PLANS TO DC TO HOME TODAY. CM TO FOLLOW AND ASSIST NEEDED. Provider Service Representative: Luz Marina Doreen Patient Name: DARRELL PENN Page 10693 at 1115 All edits/amendments must be made on the electronic document DICTATION DATE: 01/16/20 111 NET SOFTWARE DEVELOPER: DARYL 01/16/20 1114 RPT#: [id number] DC DATE: STATUS: ADM IN [facility] [address] [place] [address] END OF REPORT
--- NOTE | 2020-01-16 11:18 | NUR ---
PATIENT FOUND TO HAVE LEFT WITHOUT LETTING STAFF KNOW HE WAS LEAVING. PATIENT AMBULATED FROM UNIT WITH ALL PERSONAL BELONGINGS. NO BELONGINGS FOUND IN ROOM TO BELONG TO PATIENT.
--- NOTE | 2020-01-16 15:43 | MORECARE ---
CASE MANAGEMENT DISCHARGE SUMMARY PATIENT: DARRELL PENN UNIT: [id number] ADM DATE: 01/13/20 AGE: 24 : [birth year] SEX: M ROOM/BED: D.2111 AUTHOR: MALKA SHERMAN PHYSICIAN: REFERRING PHYSICIAN: PETTY CASTORENA MD DATE OF SERVICE: 01/16/20 Discharge Plan Patient Name: DARRELL PENN Facility: [facility]:[place] : 1995 Planned Disposition: Anticipated Discharge Date: Discharge Date: 01/16/2020 Expected LOS: Initial Reviewer: [email or web address] Initial Review Date: 01/16/2020 Generated: 01/16/20 4:43 pm Comments DCP- Discharge Planning Updated by [email or web address]: Luz Marina Logan on 01/16/20 10:[address] Patient Name: DARRELL PENN Admission Status: ER Accout number: [id number] Admission Date: 01-13-2020 : 1995 Admission Diagnosis: Attending: PETTY CASTORENA Current LOS: 3 Anticipated DC Date: Planned Disposition: Primary Insurance: [place] PR[employer] Discharge Planning Comments: CM MET WITH PATIENT AFTER OBTAINING VERBAL CONSENT. DENIES NEEDS FOR HH, REHAB OR MEDICAL EQUIPMENT. PLANS TO DC TO HOME TODAY. CM TO FOLLOW AND ASSIST NEEDED. Animal Surgeon: Luz Marina Breaux DP export: 01/16/20 10:15 a Patient Name: DARRELL PENN Page [phone] at 1543 All edits/amendments must be made on the electronic document DICTATION DATE: 01/16/20 1543 RACETRACK STEWARD: DARYL 01/16/20 1543 RPT#: [id number] DC DATE:01/16/20 STATUS: DIS IN [facility] [address] [place] [address] END OF REPORT
== END 2020-01-16 11:30 | disposition home or self-care (01) | DRG 74 ==
LOC: D.ER 20:03 → D.M2 22:27
PROVIDERS: Emergency Medicine; ADMIT Internal Medicine Nephrology; ATTEND Internal Medicine Nephrology
DX: E11.43 Type 2 diabetes mellitus with diabetic autonomic (poly)neuropathy (principal); N17.9 Acute kidney failure, unspecified; E87.1 Hypo-osmolality and hyponatremia; F17.213 Nicotine dependence, cigarettes, with withdrawal; R11.15 Cyclical vomiting syndrome unrelated to migraine; F12.988 Cannabis use, unspecified with other cannabis-induced disorder; E87.6 Hypokalemia; K31.84 Gastroparesis

== ENCOUNTER 2020-02-01 20:39 | Inpatient (IN) | payer MEDICAID ==
[~2020-02-01] VITALS: Ht 182.9 cm; Wt 77.1 kg
[2020-02-01 21:32] LABS: BASOPHILS 0.1 % (0-2); EOSINOPHILS 0.1 % (0-7); HEMATOCRIT 51.9 % (42.0-54.0); HEMOGLOBIN 18.7 g/dL (13.5-17.5); IMMATURE GRANULOCYTES 0.3 % (0-5); LYMPHOCYTES 9.6 % (15-50); MCH 29.4 pg (26.0-34.0); MCV 81.7 fL (80.0-100.0); MEAN PLATELET VOLUME 9.4 fL (7.4-10.4); MONOCYTES 9.6 % (2-11); NEUTROPHILS 80.3 % (40-80); PLATELET COUNT 497 10x3/uL (130-400); RBC 6.35 10x6/uL (4.20-6.10); RDW 12.8 % (11.5-14.5); WBC 13.2 10x3/uL (4.8-10.8)
[2020-02-01 21:34] VITALS: BP 162/114
[2020-02-01 21:47] LABS: ALKALINE PHOSPHATASE 75 U/L (30-120); ALT (SGPT) 19 U/L (10-68); AMYLASE - SERUM 85 U/L (25-115); BILIRUBIN - TOTAL 1.45 mg/dL (0.2-1.3); CALC OSMOLALITY 255 mosm/kg (275-300); CALCIUM 10.6 mg/dL (8.5-10.1); CREATINE KINASE 18 UL (21-232); CREATININE - SERUM 1.6 mg/dL (0.6-1.3); GLUCOSE 116 mg/dL (74-106); LIPASE 61 U/L (73-393); MAGNESIUM - SERUM 2.4 mg/dL (1.8-2.4); PROTEIN - SERUM 9.3 g/dL (6.4-8.2); SODIUM 122 mmol/L (136-145); TROPONIN-I < 0.017 ng/mL (0.000-0.060); UREA NITROGEN 39 mg/dL (7-18); eGFR NON AFRICAN AMERICAN 57 mL/min (90-120)
[2020-02-01 21:58] LABS: CARBON DIOXIDE 41.9 mmol/L (21.0-32.0); CHLORIDE - SERUM 73 mmol/L (98-107)
[2020-02-01 22:17] VITALS: BP 133/92
[2020-02-01 23:26] VITALS: BP 136/88
--- NOTE | 2020-02-01 23:41 | NUR ---
REPORT CALLED TO DANN
[2020-02-02] VITALS: BP 135/92
--- NOTE | 2020-02-02 00:10 | NUR ---
PT ARRIVED TO FLOOR AOX4. STATES PAIN/TENDERNESS TO ABD 5/10. NAUSEOUS, EXTRA EMESIS BAGS PROVIDED. ZOFRAN DRIP INFUSING. IV LEFT FA INFUSING NS40K @ 125. O2 2L/NC. INFORMED PT WE NEED URINE SAMPLE, VERBALIZED UNDERSTANDING. PROVIDED URINAL. REMINDED PT HE IS NPO. DENIES NEEDS AT THIS TIME. CL IN REACH, WILL CTM
[2020-02-02 00:20] VITALS: BMI 23.1
[2020-02-02 04:00] VITALS: BP 137/95
[2020-02-02 07:30] LABS: BASOPHILS 0 % (0-2); EOSINOPHILS 0.2 % (0-7); HEMATOCRIT 45.6 % (42.0-54.0); HEMOGLOBIN 16.4 g/dL (13.5-17.5); IMMATURE GRANULOCYTES 0.2 % (0-5); LYMPHOCYTES 9.2 % (15-50); MCH 29.8 pg (26.0-34.0); MCV 82.9 fL (80.0-100.0); MEAN PLATELET VOLUME 9.5 fL (7.4-10.4); MONOCYTES 11.9 % (2-11); NEUTROPHILS 78.5 % (40-80); PLATELET COUNT 454 10x3/uL (130-400); RDW 12.8 % (11.5-14.5); WBC 11.3 10x3/uL (4.8-10.8)
[2020-02-02 07:48] LABS: ALBUMIN 4.2 g/dL (3.4-5.0); BILIRUBIN - TOTAL 1.53 mg/dL (0.2-1.3); CALCIUM 9.8 mg/dL (8.5-10.1); CARBON DIOXIDE 37.8 mmol/L (21.0-32.0); CREATININE - SERUM 1.4 mg/dL (0.6-1.3); MAGNESIUM - SERUM 2.4 mg/dL (1.8-2.4); PHOSPHOROUS 3.2 mg/dL (2.5-4.9); PROTEIN - SERUM 7.3 g/dL (6.4-8.2)
--- NOTE | 2020-02-02 07:49 | NUR ---
ALERT AND ORIENTED. LUNGS CLEAR BILATERALLY. HEART SOUNDS S1 AND S2 HEARD IN ALL [place]. SKIN INTACT WITHOUT REDNESS. IV TO LFA PATENT WITHOUT REDNESS. DENIES PAIN. DENIES NEEDS. BED LOW. CALL [place] AND PERSONAL ITEMS IN REACH. WILL CONTINUE TO MONITOR.
[2020-02-02 07:52] LABS: ANION GAP 11.5 mmol/L (8-16); POTASSIUM - SERUM 3.3 mmol/L (3.5-5.1)
[2020-02-02 08:11] LABS: UDS - AMPHET NEGATIVE QUAL (NEGATIVE); UDS - BARB NEGATIVE QUAL (NEGATIVE); UDS - BENZO NEGATIVE QUAL (NEGATIVE); UDS - COCAINE NEGATIVE QUAL (NEGATIVE); UDS - OPIATE NEGATIVE QUAL (NEGATIVE); UDS - PCP NEGATIVE QUAL (NEGATIVE); UDS - THC POSITIVE QUAL (NEGATIVE)
[2020-02-02 08:55] VITALS: BP 113/73
[2020-02-02 09:04] LABS: BACTERIA MODERATE /hpf (NEGATIVE); BILIRUBIN NEGATIVE (NEGATIVE); EPITHELIAL CELLS OCC /hpf (0-5); GLUCOSE NEGATIVE (NEGATIVE); KETONE MODERATE mg/dL (NEGATIVE); NITRITE NEGATIVE (NEGATIVE); RED CELLS - URINE 0-5 /hpf (0-5); SPECIFIC GRAVITY 1.015 (1.005-1.020); UROBILINOGEN NORMAL (NORMAL); WHITE CELLS - URINE 0-5 /hpf (NEGATIVE)
[2020-02-02 09:05] LABS: HYALINE CAST OCC /lpf (NONE SEEN)
[2020-02-02 12:22] VITALS: Ht 182.9 cm; Wt 77.1 kg
--- NOTE | 2020-02-02 15:14 | NUR ---
PATIENT SLEEPING. WILL CONTINUE TO MONITOR.
[2020-02-02 16:55] VITALS: BP 124/74
--- NOTE | 2020-02-02 17:35 | NUR ---
SPOKE WITH BOGDAN CARR WHO STATES OK TO ADVANCE DIET TO CLEAR LIQUID. STATES IF PATIENT BECOMES NAUSEAS, DECREASE BACK TO NPO STATUS.
--- NOTE | 2020-02-02 18:37 | NUR ---
PATIENT TOLERATING CLEAR LIQUID DIET AT THIS TIME.
--- NOTE | 2020-02-02 18:42 | MORECARE ---
CASE MANAGEMENT DISCHARGE SUMMARY PATIENT: DARRELL PENN UNIT: [id number] ADM DATE: 02/01/20 AGE: 24 : [birth year] SEX: M ROOM/BED: D.2226 AUTHOR: MALKA SHERMAN PHYSICIAN: REFERRING PHYSICIAN: TAB BREWSTER MD DATE OF SERVICE: 02/02/20 Discharge Plan Patient Name: DARRELL PENN Facility: [facility]:[place] : 1995 Planned Disposition: Home Anticipated Discharge Date: Discharge Date: Expected LOS: Initial Reviewer: [email or web address] Initial Review Date: 02/02/2020 Generated: 02/02/20 7:42 pm Patient Name: DARRELL PENN Page [phone] at 1842 All edits/amendments must be made on the electronic document DICTATION DATE: 02/02/201841 GAMBLING DEALER: DARYL 02/02/201841 RPT#: [id number] DC DATE: STATUS: ADM IN [facility] [address] [place] [address] END OF REPORT
--- NOTE | 2020-02-02 18:49 | MORECARE ---
CASE MANAGEMENT DISCHARGE SUMMARY PATIENT: DARRELL PENN UNIT: [id number] ADM DATE: 02/01/20 AGE: 24 : [birth year] SEX: M ROOM/BED: D.2226 AUTHOR: MALKA SHERMAN PHYSICIAN: REFERRING PHYSICIAN: TAB BREWSTER MD DATE OF SERVICE: 02/02/20 Discharge Plan Patient Name: DARRELL PENN [facility] [facility] 1995 Planned Disposition: Home Anticipated Discharge Date: Discharge Date: Expected LOS: Initial Reviewer: [email or web address] Initial Review Date: 02/02/2020 Generated: 02/02/20 7:48 pm DCPIA - Discharge Planning Initial Assessment Updated by [email or web address]: Rubi Fofana on 02/02/20 6:42 pm * Is the patient Alert and Oriented? Yes * How many steps to enter\exit or inside your home? * PCP [place] * Pharmacy [facility] * Preadmission Environment Home Alone * ADLs Independent * Equipment None * List name and contact numbers for known caregivers / representatives who currently or will assist patient after discharge: DEVONJEFF CORINE GF - [phone] * Verbal permission to speak to the caregivers and representatives has been obtained from the patient. Yes * Community resources currently utilized None * Additional services required to return to the preadmission environment? No * Can the patient safely return to the preadmission environment? Yes * Has this patient been hospitalized within the prior 30 days at any hospital? Yes Last DP export: 02/02/20 5:42 p Patient Name: DARRELL PENN Page [phone] at 1849 All edits/amendments must be made on the electronic document DICTATION DATE: 02/02/201847 FUNERAL ARRANGER: DARYL 02/02/201847 RPT#: [id number] DC DATE: STATUS: ADM IN [facility] [address] [place] [address] END OF REPORT
--- NOTE | 2020-02-02 18:56 | MORECARE ---
CASE MANAGEMENT DISCHARGE SUMMARY PATIENT: DARRELL PENN UNIT: [id number] ADM DATE: 02/01/20 AGE: 24 : [birth year] SEX: M ROOM/BED: D.2226 AUTHOR: WHIT,DOC PHYSICIAN: REFERRING PHYSICIAN: TAB BREWSTER MD DATE OF SERVICE: 02/02/20 Discharge Plan Patient Name: DARRELL PENN Facility: [facility]:[place] : 1995 Planned Disposition: Home Anticipated Discharge Date: Discharge Date: Expected LOS: Initial Reviewer: [email or web address] Initial Review Date: 02/02/2020 Generated: 02/02/20 7:55 pm Comments DCP- Discharge Planning Updated by [email or web address]: Rubi Fofana on 02/02/20 5:[address] Patient Name: DARRELL PENN Admission Status: ER Accout number: [id number] Admission Date: 02-01-2020 : 1995 Admission Diagnosis: Attending: CEDRIC Current LOS: 1 Anticipated DC Date: Planned Disposition: Home Primary Insurance: [place] PRIVATE OPTIONS [facility] Discharge Planning Comments: CM met with patient to complete initial dc planning assessment. CM educated patient on the CM role and verbal consent given by patient to complete assessment. Patient lives at home alone. At discharge patient plans to return home and feels this is a safe discharge. CM discussed availability of home health, rehab services, and medical equipment. Patient denied known discharge needs at this time. CM will continue to follow and will assist as needed with dc plans/needs. Mail Carrier Technician: Rubi Fofana DCPIA - Discharge Planning Initial Assessment Updated by [email or web address]: Rubi Fofana on 02/02/20 6:42 pm * Is the patient Alert and Oriented? Yes * How many steps to enter\exit or inside your home? * PCP [place] * Pharmacy [facility] * Preadmission Environment Home Alone * ADLs Independent * Equipment None * List name and contact numbers for known caregivers / representatives who currently or will assist patient after discharge: WANDA POOL - GF - [phone] * Verbal permission to speak to the caregivers and representatives has been obtained from the patient. Yes * Community resources currently utilized None * Additional services required to return to the preadmission environment? No * Can the patient safely return to the preadmission environment? Yes * Has this patient been hospitalized within the prior 30 days at any hospital? Yes Last DP export: 02/02/20 5:49 p Patient Name: DARRELL PENN Page [phone] at 1856 All edits/amendments must be made on the electronic document DICTATION DATE: 02/02/201854 DRIVER SUPERVISOR: DARYL 02/02/201854 RPT#: [id number] DC DATE: STATUS: ADM IN [facility] [address] [place] [address] END OF REPORT
--- NOTE | 2020-02-02 19:30 | NUR ---
LYING IN BED. ALERT AND ORIENTED X4. DENIES N/V. RESP EVEN AND NONLABORED. DENIES PAIN. AMBULATORY. NO DISTRESS. NS WITH 40 MEQ KCL @ 125 MLHR INFUSING IN LT FOREARM WITH ZOFRAN DRIP @ 4.6 MLHR. KCL RIDER INFUSING AT THIS TIME. CL IN REACH.
[2020-02-02 20:30] VITALS: BP 110/68
[2020-02-03 00:30] VITALS: BP 109/59
--- NOTE | 2020-02-03 00:30 | NUR ---
LYING IN BED. NO VOMITING NOTED SO FAR. DENIES NEEDS. CL IN REACH.
--- NOTE | 2020-02-03 02:33 | NUR ---
LYING IN BED WITH EYES CLOSED. RESP NONLABORED. NO DISTRESS. CL IN REACH.
[2020-02-03 04:30] VITALS: BP 124/73
[2020-02-03 04:49] LABS: BASOPHILS 0.4 % (0-2); EOSINOPHILS 1.6 % (0-7); HEMATOCRIT 42.5 % (42.0-54.0); HEMOGLOBIN 14.6 g/dL (13.5-17.5); IMMATURE GRANULOCYTES 0.3 % (0-5); MCH 29.1 pg (26.0-34.0); MCHC 34.4 g/dL (31.0-37.0); MCV 84.8 fL (80.0-100.0); MEAN PLATELET VOLUME 9.2 fL (7.4-10.4); MONOCYTES 10.5 % (2-11); NEUTROPHILS 61.2 % (40-80); PLATELET COUNT 371 10x3/uL (130-400); RBC 5.01 10x6/uL (4.20-6.10); RDW 12.8 % (11.5-14.5)
[2020-02-03 05:09] LABS: WBC 7.5 10x3/uL (4.8-10.8)
[2020-02-03 05:24] LABS: ANION GAP 6.8 mmol/L (8-16); CALCIUM 8.7 mg/dL (8.5-10.1); CARBON DIOXIDE 33.5 mmol/L (21.0-32.0); CREATININE - SERUM 1.4 mg/dL (0.6-1.3); MAGNESIUM - SERUM 2.1 mg/dL (1.8-2.4); POTASSIUM - SERUM 3.3 mmol/L (3.5-5.1)
[2020-02-03 05:27] LABS: PHOSPHOROUS 1.4 mg/dL (2.5-4.9)
[2020-02-03 08:00] VITALS: BP 118/75
--- NOTE | 2020-02-03 08:30 | NUR ---
PATIENT LAYING ON BACK. RESPONDS AND FOLLOWS MY REQUESTS FOR ASSESSMENT. STATES HE HAS NO PAIN. CL IN REACH. WCTM
--- NOTE | 2020-02-03 12:16 | NUR ---
PATIENT TELEMETRY RUNNING 77 SR WITH BBB.
[2020-02-03 12:57] VITALS: BP 126/71
--- NOTE | 2020-02-03 14:44 | NUR ---
PATIENT GOING TO TRY CRACKERS AND MILK TO SEE IF ABLE TO TOLERATE BEFORE DISCHARGING. CL IN REACH. WCTM
[2020-02-03] MEDS ORDERED: Nicoderm [PBKC] TRANSDERM (14:47)
--- NOTE | 2020-02-03 20:57 | MORECARE ---
CASE MANAGEMENT DISCHARGE SUMMARY PATIENT: DARRELL PENN UNIT: [id number] ADM DATE: 02/01/20 AGE: 24 : 96 SEX: M ROOM/BED: D.2226 AUTHOR: WHIT,DOC PHYSICIAN: REFERRING PHYSICIAN: TAB BREWSTER MD DATE OF SERVICE: 02/03/20 Discharge Plan Patient Name: DARRELL PENN Facility: [facility]:[place] : 1995 Planned Disposition: Home Anticipated Discharge Date: Discharge Date: 02/03/2020 Expected LOS: Initial Reviewer: [email or web address] Initial Review Date: 02/02/2020 Generated: 02/03/20 9:57 pm DCP- Discharge Planning Updated by [email or web address]: Rubi Fofana on 02/02/20 5:[address] Patient Name: DARRELL PENN Admission Status: ER Accout number: [id number] Admission Date: 02-01-2020 : 1995 Admission Diagnosis: Attending: CEDRIC Current LOS: 1 Anticipated DC Date: Planned Disposition: Home Primary Insurance: [place] PRIVATE OPTIONS [place] Discharge Planning Comments: CM met with patient to complete initial dc planning assessment. CM educated patient on the CM role and verbal consent given by patient to complete assessment. Patient lives at home alone. At discharge patient plans to return home and feels this is a safe discharge. CM discussed availability of home health, rehab services, and medical equipment. Patient denied known discharge needs at this time. CM will continue to follow and will assist as needed with dc plans/needs. Dicer Operator: Rubi Fofana DCPIA - Discharge Planning Initial Assessment Updated by [email or web address]: Rubi Fofana on 02/02/20 6:42 pm * Is the patient Alert and Oriented? Yes * How many steps to enter\exit or inside your home? * PCP [place] * Pharmacy [facility] * Preadmission Environment Home Alone * ADLs Independent * Equipment None * List name and contact numbers for known caregivers / representatives who currently or will assist patient after discharge: WANDA POOL GF - [phone] * Verbal permission to speak to the caregivers and representatives has been obtained from the patient. Yes * Community resources currently utilized None * Additional services required to return to the preadmission environment? No * Can the patient safely return to the preadmission environment? Yes * Has this patient been hospitalized within the prior 30 days at any hospital? Yes Last DP export: 02/02/20 5:55 p Patient Name: DARRELL PENN Page [phone] at 2056 All edits/amendments must be made on the electronic document DICTATION DATE: 02/03/202056 TISSUE TECHNICIAN: DARYL 02/03/202056 RPT#: [id number] DC DATE:02/03/20 STATUS: DIS IN [facility] [address] [place] [address] END OF REPORT
== END 2020-02-03 17:15 | disposition home or self-care (01) | DRG 641 ==
LOC: D.ER 20:39 → D.MS 22:44
PROVIDERS: Family Medicine; ADMIT Family Medicine; ATTEND Family Medicine
DX: E87.6 Hypokalemia (principal); N17.9 Acute kidney failure, unspecified; F17.203 Nicotine dependence unspecified, with withdrawal; E87.1 Hypo-osmolality and hyponatremia; K31.84 Gastroparesis; F12.20 Cannabis dependence, uncomplicated; E80.6 Other disorders of bilirubin metabolism; R11.2 Nausea with vomiting, unspecified; E86.0 Dehydration

== ENCOUNTER 2020-02-22 09:49 | Inpatient (IN) | payer MEDICAID ==
[~2020-02-22] VITALS: Ht 182.9 cm; Wt 81.6 kg
[~2020-02-22 09:49] MED LIST changes: +Nicoderm [PBKC] TRANSDERM
[2020-02-22 10:14] LABS: BASOPHILS 0 % (0-2); EOSINOPHILS 0 % (0-7); HEMATOCRIT 51.1 % (42.0-54.0); HEMOGLOBIN 19.1 g/dL (13.5-17.5); IMMATURE GRANULOCYTES 0.3 % (0-5); MCH 30.3 pg (26.0-34.0); MCHC 37.4 g/dL (31.0-37.0); MCV 81.1 fL (80.0-100.0); MEAN PLATELET VOLUME 9.6 fL (7.4-10.4); MONOCYTES 13.5 % (2-11); NEUTROPHILS 78.2 % (40-80); RDW 12.6 % (11.5-14.5); WBC 14.1 10x3/uL (4.8-10.8)
[2020-02-22 10:15] LABS: PLATELET COUNT 544 10x3/uL (130-400)
[2020-02-22 10:31] LABS: BILIRUBIN - TOTAL 1.58 mg/dL (0.2-1.3); CALCIUM 10.2 mg/dL (8.5-10.1); CREATININE - SERUM 2.3 mg/dL (0.6-1.3); MAGNESIUM - SERUM 2.3 mg/dL (1.8-2.4); PROTEIN - SERUM 9.5 g/dL (6.4-8.2)
[2020-02-22 10:44] LABS: ANION GAP 10.7 mmol/L (8-16)
--- NOTE | 2020-02-22 10:47 | NUR ---
chloride 67 co2 44.4 potassium 2.1 sodium 120
[2020-02-22 10:48] LABS: CARBON DIOXIDE 44.4 mmol/L (21.0-32.0); POTASSIUM - SERUM 2.1 mmol/L (3.5-5.1)
--- NOTE | 2020-02-22 13:06 | NUR ---
RECEIVED PT FROM ER, PT IS ALERT AND ORIENTED, BELCHING A LOT, PT HAS BOLUS OF LR RUNNING WELL K+ RIDER, CL IN REACH, PT HAS TRAY AT BEDSIDE OF CLEAR LIQUIDS, NO NEEDS VOICED, ASSUME PT CARE
[2020-02-22 17:03] VITALS: BP 129/87
--- NOTE | 2020-02-22 17:14 | NUR ---
PT LYING IN BED, NO S/SX OF DISTRESS, EVEN RISE AND FALL OF CHEST, PT STILL HAS K+ RIDERS RUNNING, CONTINUE WITH PLAN OF CARE
[2020-02-22 17:19] LABS: ANION GAP 5.6 mmol/L (8-16)
[2020-02-22 17:20] LABS: CARBON DIOXIDE 41.8 mmol/L (21.0-32.0); POTASSIUM - SERUM 2.4 mmol/L (3.5-5.1)
--- NOTE | 2020-02-22 17:43 | NUR ---
RECEIVED CALL FROM LAB, PT K+ IS 2.4, CHL IS 78, CO2 IS 41.8 AND Na IS 123, ALL STILL ABDNORMAL BUT TRENDING IN THE RIGHT DIRECTION, PT HAS LAST RIDER RUNNING OF K+ AND NS W/ 20K ALSO RUNNING, WILL CONTINUE WITH PLAN OF CARE
[2020-02-22 18:44] VITALS: BP 129/89; BMI 24.4
--- NOTE | 2020-02-22 19:00 | NUR ---
BEDSIDE REPORT RECEIVED AND CARE OF PT ASSUMED. PT LYING ON LEFT SIDE WITH EYES CLOSED AND EASY RESPIRATIONS. IV TO LEFT FA PATENT WITH NS W/ 20 KCL INFUSING AT 125 ML/HR, AND ZOFRAN INFUSING AT 4.7 ML/HR. WILL MONITOR OR NEEDS.
[2020-02-22 20:00] VITALS: BP 113/63
--- NOTE | 2020-02-22 20:09 | NUR ---
HS MEDICATIONS GIVEN. PT DECLINES SNACK AT THIS TIME.
[2020-02-23] VITALS: BP 152/98
--- NOTE | 2020-02-23 00:04 | NUR ---
PT PULLED OUT IV WITH CATHETER TIP INTACT. RE-STARTED IV TO RIGHT AC USING 20 GUAGE CATHETER IN ONE STICK. RE-STARTED IV FLUIDS AND ZOFRAN DRIP. PT VERY NAUSEATED AND VOMITING...GAVE PRN ZOFRAN ODT AND SCHEDULED PROTONIX IVP. WILL CONTINUE TO MONITOR FOR NEEDS.
[2020-02-23 04:00] VITALS: BP 141/85
--- NOTE | 2020-02-23 05:19 | NUR ---
COLLECTED URINE FOR ORDERED STUDIES AND DELIVERED TO LAB.
[2020-02-23 05:35] LABS: ANION GAP 8.1 mmol/L (8-16); CALCIUM 9.1 mg/dL (8.5-10.1); CARBON DIOXIDE 38.3 mmol/L (21.0-32.0)
[2020-02-23 05:38] LABS: BASOPHILS 0.1 % (0-2); EOSINOPHILS 0.2 % (0-7); HEMATOCRIT 46.5 % (42.0-54.0); HEMOGLOBIN 16.5 g/dL (13.5-17.5); IMMATURE GRANULOCYTES 0.4 % (0-5); LYMPHOCYTES 14.1 % (15-50); MCH 29.6 pg (26.0-34.0); MCHC 35.5 g/dL (31.0-37.0); MONOCYTES 13.3 % (2-11); NEUTROPHILS 71.9 % (40-80); RBC 5.57 10x6/uL (4.20-6.10); RDW 12.7 % (11.5-14.5)
[2020-02-23 06:17] LABS: MCV 83.5 fL (80.0-100.0); PLATELET COUNT 423 10x3/uL (130-400); WBC 10.1 10x3/uL (4.8-10.8)
[2020-02-23 06:30] LABS: POTASSIUM - SERUM 2.4 mmol/L (3.5-5.1)
[2020-02-23 06:33] LABS: UDS - AMPHET NEGATIVE QUAL (NEGATIVE); UDS - BARB NEGATIVE QUAL (NEGATIVE); UDS - BENZO NEGATIVE QUAL (NEGATIVE); UDS - COCAINE NEGATIVE QUAL (NEGATIVE); UDS - OPIATE NEGATIVE QUAL (NEGATIVE); UDS - PCP NEGATIVE QUAL (NEGATIVE); UDS - THC POSITIVE QUAL (NEGATIVE)
[2020-02-23 07:54] VITALS: BP 134/85
[2020-02-23 08:07] LABS: BACTERIA FEW /hpf (NEGATIVE); BILIRUBIN NEGATIVE (NEGATIVE); EPITHELIAL CELLS OCC /hpf (0-5); GLUCOSE NEGATIVE (NEGATIVE); KETONE SMALL mg/dL (NEGATIVE); NITRITE NEGATIVE (NEGATIVE); RED CELLS - URINE 0-5 /hpf (0-5); SPECIFIC GRAVITY 1.005 (1.005-1.020); UROBILINOGEN NORMAL (NORMAL); WHITE CELLS - URINE OCC /hpf (NEGATIVE)
--- NOTE | 2020-02-23 08:39 | NUR ---
PT LYING IN BED, IV TO RT AC WITH NS W/ 20K, K+ AND ZOFRAN DRIP RUNNING. NO S/SX OF DISTRESS. BED IN LOWEST POSTION, CL IN REACH CONTINUE WITH PLAN OF CARE
[2020-02-23 12:06] VITALS: BP 128/89
[2020-02-23 12:43] VITALS: Ht 182.9 cm; Wt 81.6 kg
[2020-02-23 15:44] VITALS: BP 120/73
--- NOTE | 2020-02-23 16:54 | NUR ---
22 GAUGE IV STARTED IN LEFT ARM GREAT BLOOD FLOW FLUSHED WITHOUT DIFFICULTY SECURED WITH TEGADERM AND RESTARTED IV THAT WAS PUT ON PAUSE.MANASA NOTIFED OF ABOVE
--- NOTE | 2020-02-23 19:30 | NUR ---
PT SITTING UP IN BED WITHOUT DISTRESS, AOX4. TOLERATING DIET, DENIES PAIN OR NAUSEA. NO NEEDS AT THIS TIME. CL IN REACH, WILL CTM
[2020-02-23 21:44] VITALS: BP 111/76
[2020-02-24 00:50] VITALS: BP 113/62
[2020-02-24 05:04] LABS: BASOPHILS 0.1 % (0-2); EOSINOPHILS 2.1 % (0-7); HEMATOCRIT 38.3 % (42.0-54.0); HEMOGLOBIN 13.3 g/dL (13.5-17.5); IMMATURE GRANULOCYTES 0.6 % (0-5); LYMPHOCYTES 24.6 % (15-50); MCH 29.2 pg (26.0-34.0); MCHC 34.7 g/dL (31.0-37.0); MCV 84.2 fL (80.0-100.0); MEAN PLATELET VOLUME 9.7 fL (7.4-10.4); MONOCYTES 12.2 % (2-11); NEUTROPHILS 60.4 % (40-80); RBC 4.55 10x6/uL (4.20-6.10); RDW 12.7 % (11.5-14.5)
[2020-02-24 05:11] LABS: PLATELET COUNT 338 10x3/uL (130-400); WBC 7.1 10x3/uL (4.8-10.8)
[2020-02-24 05:13] LABS: ANION GAP 8.9 mmol/L (8-16); CALCIUM 8.2 mg/dL (8.5-10.1); CARBON DIOXIDE 29.9 mmol/L (21.0-32.0); CREATININE - SERUM 1.8 mg/dL (0.6-1.3)
[2020-02-24 05:21] LABS: POTASSIUM - SERUM 2.8 mmol/L (3.5-5.1)
[2020-02-24 06:55] VITALS: BP 120/69
[2020-02-24 09:21] VITALS: BP 126/87
[2020-02-24 13:45] VITALS: BP 118/79
--- NOTE | 2020-02-24 15:10 | NUR ---
PATIENT IN BED WAITING FOR DC INSTRUCTIONS. POTASSIUM 3.7. CALL LIGHT WITHIN REACH.
--- NOTE | 2020-02-24 16:00 | NUR ---
PATIENT RECIEVED DC INSTRUCTIONS AND VERBALIZED UNDERSTANDING. NO QUESTIONS AT THIS TIME. IV REMOVED WITH CATH TIP INTACT. AMBULATED DOWN TO PRIVATE VEHICLE WITH PERSONAL BELONGINGS. REFUSED WC.
== END 2020-02-24 16:00 | disposition home or self-care (01) | DRG 394 ==
LOC: D.ER 09:49 → D.MS 11:25
PROVIDERS: Emergency Medicine; ADMIT Internal Medicine Nephrology; ATTEND Internal Medicine Nephrology
DX: R11.15 Cyclical vomiting syndrome unrelated to migraine (principal); N17.9 Acute kidney failure, unspecified; E87.1 Hypo-osmolality and hyponatremia; F17.203 Nicotine dependence unspecified, with withdrawal; F12.188 Cannabis abuse with other cannabis-induced disorder; E87.6 Hypokalemia; K31.84 Gastroparesis; Z91.14 Patient's other noncompliance with medication regimen

== ENCOUNTER 2020-03-02 17:41 | Observation (INO) | payer MEDICAID ==
[~2020-03-02] VITALS: Ht 182.9 cm; Wt 85.3 kg
[2020-03-02 18:28] LABS: BASOPHILS 0.2 % (0-2); EOSINOPHILS 0 % (0-7); HEMATOCRIT 49.4 % (42.0-54.0); IMMATURE GRANULOCYTES 0.3 % (0-5); LYMPHOCYTES 7.6 % (15-50); MCH 29.3 pg (26.0-34.0); MCHC 34.4 g/dL (31.0-37.0); MEAN PLATELET VOLUME 9.3 fL (7.4-10.4); MONOCYTES 6.4 % (2-11); NEUTROPHILS 85.5 % (40-80); RBC 5.81 10x6/uL (4.20-6.10); WBC 13.1 10x3/uL (4.8-10.8)
[2020-03-02 18:35] VITALS: BP 139/97
--- NOTE | 2020-03-02 18:38 | NUR ---
IV INFUSING WITH NO EDEMA OR REDNESS NOTED. PT RESTING QUIETLY AT THIS TIME. ENCOURAGED PT TO GIVE URINE SAMPLE RENAY. HE ADVISED HE WOULD TRY AFTER SOME FLUIDS WERE IN.
[2020-03-02 18:42] LABS: PLATELET COUNT 435 10x3/uL (130-400)
[2020-03-02 18:44] LABS: ANION GAP 15.1 mmol/L (8-16); CALCIUM 10.4 mg/dL (8.5-10.1); CARBON DIOXIDE 33.2 mmol/L (21.0-32.0); CREATININE - SERUM 1.6 mg/dL (0.6-1.3); POTASSIUM - SERUM 3.3 mmol/L (3.5-5.1)
[2020-03-02 18:48] VITALS: BP 135/93
[2020-03-02 18:49] LABS: ALBUMIN 4.9 g/dL (3.4-5.0); BILIRUBIN - TOTAL 0.53 mg/dL (0.2-1.3); MAGNESIUM - SERUM 1.7 mg/dL (1.8-2.4); PROTEIN - SERUM 9.4 g/dL (6.4-8.2)
[2020-03-02 19:15] LABS: BILIRUBIN NEGATIVE (NEGATIVE); GLUCOSE NEGATIVE (NEGATIVE); KETONE NEGATIVE (NEGATIVE); NITRITE NEGATIVE (NEGATIVE); SPECIFIC GRAVITY 1.015 (1.005-1.020); UROBILINOGEN NORMAL (NORMAL)
[2020-03-02 19:33] LABS: UDS - AMPHET NEGATIVE QUAL (NEGATIVE); UDS - BARB NEGATIVE QUAL (NEGATIVE); UDS - BENZO NEGATIVE QUAL (NEGATIVE); UDS - COCAINE NEGATIVE QUAL (NEGATIVE); UDS - OPIATE NEGATIVE QUAL (NEGATIVE); UDS - PCP NEGATIVE QUAL (NEGATIVE); UDS - THC POSITIVE QUAL (NEGATIVE)
--- NOTE | 2020-03-02 21:55 | NUR ---
RECEIVED PATIENT FROM ER VIA WHEELCHAIR @ 2039. PATIENT TRANSFERRED TO BED UNASSISTED. NO S/S OF DISTRESS OBSERVED, RR EVEN AND UNLABORED ON ROOM AIR. VSS. PIV TO LT FA CONTINUED NS @ 125ML/HR AND STARTED ZOFRAN DRIP @ 4.7ML/HR. QUICK START, ADULT HX, MED REC, SRS, FIRST CONTACT ALL COMPLETED. PATIENT DENIES FURTHER NEEDS AT THIS TIME. CL IN REACH, BED LOCKED AND LOWERED. WILL CTM.
[2020-03-03 02:00] VITALS: BP 129/85; BMI 24.8
[2020-03-03 04:00] VITALS: BP 110/63
[2020-03-03 04:49] LABS: BASOPHILS 0.1 % (0-2); EOSINOPHILS 0.3 % (0-7); HEMATOCRIT 42.2 % (42.0-54.0); HEMOGLOBIN 14.5 g/dL (13.5-17.5); IMMATURE GRANULOCYTES 0.3 % (0-5); LYMPHOCYTES 21.9 % (15-50); MCH 29.4 pg (26.0-34.0); MCHC 34.4 g/dL (31.0-37.0); MCV 85.6 fL (80.0-100.0); MEAN PLATELET VOLUME 9.3 fL (7.4-10.4); MONOCYTES 8.2 % (2-11); NEUTROPHILS 69.2 % (40-80); PLATELET COUNT 418 10x3/uL (130-400); RBC 4.93 10x6/uL (4.20-6.10)
[2020-03-03 04:53] LABS: WBC 9.2 10x3/uL (4.8-10.8)
[2020-03-03 05:18] LABS: ANION GAP 10.7 mmol/L (8-16); BILIRUBIN - TOTAL 0.61 mg/dL (0.2-1.3); CALCIUM 9.1 mg/dL (8.5-10.1); CARBON DIOXIDE 30.7 mmol/L (21.0-32.0); CREATININE - SERUM 1.5 mg/dL (0.6-1.3); MAGNESIUM - SERUM 1.7 mg/dL (1.8-2.4); PHOSPHOROUS 3.4 mg/dL (2.5-4.9); POTASSIUM - SERUM 3.4 mmol/L (3.5-5.1)
[2020-03-03 05:23] LABS: ALBUMIN 3.5 g/dL (3.4-5.0)
--- NOTE | 2020-03-03 11:02 | NUR ---
I have reviewed this patient and I concur with the Shift Assessment completed by the Licensed Practical Nurse today this shift.
[2020-03-03 11:09] VITALS: BP 142/84
[2020-03-03 13:30] VITALS: Ht 182.9 cm; Wt 85.3 kg
[2020-03-03 13:55] VITALS: BP 124/75
[2020-03-03] MEDS ORDERED: Nicoderm [PBKC] TRANSDERM (15:16)
--- NOTE | 2020-03-03 16:01 | MORECARE ---
CASE MANAGEMENT DISCHARGE SUMMARY PATIENT: DARRELL PENN UNIT: [id number] ADM DATE: 03/02/20 AGE: 24 : [birth year] SEX: M ROOM/BED: D.2108 AUTHOR: MALKA SHERMAN PHYSICIAN: REFERRING PHYSICIAN: JHONNY CHEATHAM MD DATE OF SERVICE: 03/03/20 Discharge Plan Patient Name: DARRELL PENN [facility] [facility] 1995 Planned Disposition: Home Anticipated Discharge Date: Discharge Date: Expected LOS: Initial Reviewer: [email or web address] Initial Review Date: 03/03/2020 Generated: 03/03/20 5:00 pm Comments DCP- Discharge Planning Updated by [email or web address]: Parris Baez on 03/03/20 2:[address] Patient Name: DARRELL PENN Admission Status: ER Accout number: [id number] Admission Date: 03-02-2020 : 1995 Admission Diagnosis: Attending: JHONNY CHEATHAM Current LOS: 1 Anticipated DC Date: Planned Disposition: Home Primary Insurance: [place] PRIVATE OPTIONS [facility] Discharge Planning Comments: Received discharge orders. He states he is feeling better and ready for home. States his girlfriend will pick him up. Denies needs. Home today, no needs identified. Steamtable Attendant Railroad: Parris Baez Patient Name: DARRELL PENN Page [phone] at 1601 All edits/amendments must be made on the electronic document DICTATION DATE: 03/03/20 1600 NODULIZER: DARYL 03/03/20 1600 RPT#: [id number] DC DATE: STATUS: ADM IN [facility] [address] [place] [address] END OF REPORT
--- NOTE | 2020-03-03 17:25 | NUR ---
PT DISCHARGED HOME VIA WHEELCHAIR WITH FAMILY. PIV REMOVED WITH CATHETER TIP FULLY INTACT. PT SIGNED PROPER DISCHARGE INSTRUCTIONS AND REMOVED ALL VALUABLES FROM THE ROOM.
--- NOTE | 2020-03-06 18:58 | MORECARE ---
CASE MANAGEMENT DISCHARGE SUMMARY PATIENT: DARRELL PENN UNIT: [id number] ADM DATE: 03/02/20 AGE: 24 : [birth year] SEX: M ROOM/BED: D.2102 AUTHOR: MALKA SHERAMN PHYSICIAN: REFERRING PHYSICIAN: JHONNY CHEATHAM MD DATE OF SERVICE: 03/06/20 Discharge Plan Patient Name: DARRELL PENN Facility: [facility]:[place] : 1995 Planned Disposition: Home Anticipated Discharge Date: Discharge Date: 03/03/2020 Expected LOS: Initial Reviewer: [email or web address] Initial Review Date: 03/03/2020 Generated: 03/06/20 7:58 pm Comments DCP- Discharge Planning Updated by [email or web address]: Parris Baez on 03/03/20 2:[address] Patient Name: DARRELL PENN Admission Status: ER Accout number: [id number] Admission Date: 03-02-2020 : 1995 Admission Diagnosis: Attending: JHONNY CHEATHAM Current LOS: 1 Anticipated DC Date: Planned Disposition: Home Primary Insurance: [place] PRIVATE OPTIONS [facility] Discharge Planning Comments: Received discharge orders. He states he is feeling better and ready for home. States his girlfriend will pick him up. Denies needs. Home today, no needs identified. Transportation Economics Teacher: Parris Baez Last DP export: 03/03/20 3:01 p Patient Name: DARRELL PENN Page 81374 at 1858 All edits/amendments must be made on the electronic document DICTATION DATE: 03/06/201857 RESOURCE MANAGER FORESTER: DARYL 03/06/201857 RPT#: [id number] DC DATE:03/03/20 STATUS: DIS IN [facility] [address] [place] [address] END OF REPORT
== END 2020-03-03 17:25 | disposition home or self-care (01) ==
LOC: D.ER 17:41 → OBSVTIME 18:58 → D.M2 18:58
PROVIDERS: Family Medicine; ADMIT Family Medicine; ATTEND Family Medicine
DX: K31.84 Gastroparesis (principal); R11.15 Cyclical vomiting syndrome unrelated to migraine; F17.203 Nicotine dependence unspecified, with withdrawal; N17.9 Acute kidney failure, unspecified; E87.6 Hypokalemia; E83.42 Hypomagnesemia

== ENCOUNTER 2020-03-11 12:41 | Emergency (ER) | payer MEDICAID ==
[~2020-03-11] VITALS: Ht 182.9 cm; Wt 81.8 kg
[2020-03-11 12:48] VITALS: Ht 182.9 cm; Wt 81.8 kg
[2020-03-11 13:23] LABS: BASOPHILS 0 % (0-2); EOSINOPHILS 0.1 % (0-7); HEMATOCRIT 50.9 % (42.0-54.0); HEMOGLOBIN 17.4 g/dL (13.5-17.5); IMMATURE GRANULOCYTES 0.3 % (0-5); LYMPHOCYTES 4.4 % (15-50); MCH 29.3 pg (26.0-34.0); MCHC 34.2 g/dL (31.0-37.0); MCV 85.7 fL (80.0-100.0); MEAN PLATELET VOLUME 9.2 fL (7.4-10.4); MONOCYTES 2.3 % (2-11); NEUTROPHILS 92.9 % (40-80); RBC 5.94 10x6/uL (4.20-6.10); RDW 13.1 % (11.5-14.5); WBC 14.6 10x3/uL (4.8-10.8)
[2020-03-11 13:31] LABS: CALC OSMOLALITY 281 mosm/kg (275-300); CARBON DIOXIDE 35.1 mmol/L (21.0-32.0); CHLORIDE - SERUM 92 mmol/L (98-107); CREATININE - SERUM 1.7 mg/dL (0.6-1.3); POTASSIUM - SERUM 3.6 mmol/L (3.5-5.1); SODIUM 136 mmol/L (136-145); UREA NITROGEN 28 mg/dL (7-18); eGFR NON AFRICAN AMERICAN 53 mL/min (90-120)
[2020-03-11 13:38] LABS: GLUCOSE 170 mg/dL (74-106)
[2020-03-11 13:42] LABS: ALBUMIN 5.1 g/dL (3.4-5.0); ALKALINE PHOSPHATASE 74 U/L (30-120); ALT (SGPT) 24 U/L (10-68); AMYLASE - SERUM 110 U/L (25-115); BILIRUBIN - TOTAL 0.45 mg/dL (0.2-1.3); LIPASE 84 U/L (73-393); PROTEIN - SERUM 9.9 g/dL (6.4-8.2); TROPONIN-I < 0.017 ng/mL (0.000-0.060)
[2020-03-11 13:45] LABS: PLATELET COUNT 586 10x3/uL (130-400)
[2020-03-11] MEDS ORDERED: ZOFRAN8 MG PO (16:07)
[2020-03-11 16:11] LABS: BILIRUBIN NEGATIVE (NEGATIVE); GLUCOSE NEGATIVE (NEGATIVE); KETONE MODERATE mg/dL (NEGATIVE); NITRITE NEGATIVE (NEGATIVE); UROBILINOGEN NORMAL (NORMAL)
[2020-03-11 17:09] VITALS: BP 148/89
== END 2020-03-11 17:10 | disposition home or self-care (01) ==
LOC: D.ER 12:41
PROVIDERS: Family Medicine
DX: R11.15 Cyclical vomiting syndrome unrelated to migraine (principal); E86.0 Dehydration; D72.829 Elevated white blood cell count, unspecified

== ENCOUNTER 2020-03-16 19:56 | Inpatient (IN) | payer MEDICAID ==
[~2020-03-16] VITALS: Ht 182.9 cm; Wt 83.4 kg
[2020-03-16 20:56] LABS: BILIRUBIN NEGATIVE (NEGATIVE); GLUCOSE NEGATIVE (NEGATIVE); KETONE NEGATIVE (NEGATIVE); NITRITE NEGATIVE (NEGATIVE); RED CELLS - URINE 0-5 /hpf (0-5); SPECIFIC GRAVITY 1.025 (1.005-1.020); UROBILINOGEN NORMAL (NORMAL); WHITE CELLS - URINE 0-5 /hpf (NEGATIVE)
[2020-03-16 21:00] VITALS: BP 142/102
[2020-03-16 21:08] LABS: BASOPHILS 0.1 % (0-2); EOSINOPHILS 0.3 % (0-7); HEMATOCRIT 54.1 % (42.0-54.0); HEMOGLOBIN 19.8 g/dL (13.5-17.5); IMMATURE GRANULOCYTES 0.3 % (0-5); LYMPHOCYTES 11.4 % (15-50); MCH 30.1 pg (26.0-34.0); MCHC 36.6 g/dL (31.0-37.0); MCV 82.3 fL (80.0-100.0); MEAN PLATELET VOLUME 9.5 fL (7.4-10.4); MONOCYTES 10.9 % (2-11); PLATELET COUNT 565 10x3/uL (130-400); RDW 12.6 % (11.5-14.5)
[2020-03-16 21:18] LABS: RBC 6.57 10x6/uL (4.20-6.10)
[2020-03-16 22:00] VITALS: BP 137/89
[2020-03-16 22:08] LABS: ALBUMIN 5.4 g/dL (3.4-5.0); BILIRUBIN - TOTAL 1.07 mg/dL (0.2-1.3); CALCIUM 11.3 mg/dL (8.5-10.1); CARBON DIOXIDE 38.9 mmol/L (21.0-32.0); PROTEIN - SERUM 9.3 g/dL (6.4-8.2)
[2020-03-16 22:20] LABS: MAGNESIUM - SERUM 2.5 mg/dL (1.8-2.4); POTASSIUM - SERUM 2.9 mmol/L (3.5-5.1)
[2020-03-16 23:07] LABS: UDS - AMPHET NEGATIVE QUAL (NEGATIVE); UDS - BARB NEGATIVE QUAL (NEGATIVE); UDS - BENZO NEGATIVE QUAL (NEGATIVE); UDS - COCAINE NEGATIVE QUAL (NEGATIVE); UDS - OPIATE NEGATIVE QUAL (NEGATIVE); UDS - PCP NEGATIVE QUAL (NEGATIVE); UDS - THC POSITIVE QUAL (NEGATIVE)
[2020-03-17 00:29] VITALS: BP 136/92; BMI 24.4
[2020-03-17 05:42] LABS: BASOPHILS 0.2 % (0-2); EOSINOPHILS 0.3 % (0-7); HEMATOCRIT 43.4 % (42.0-54.0); IMMATURE GRANULOCYTES 0.3 % (0-5); LYMPHOCYTES 23.2 % (15-50); MCH 29.3 pg (26.0-34.0); MCHC 35.5 g/dL (31.0-37.0); MCV 82.5 fL (80.0-100.0); MEAN PLATELET VOLUME 9.4 fL (7.4-10.4); MONOCYTES 10.7 % (2-11); NEUTROPHILS 65.3 % (40-80); RBC 5.26 10x6/uL (4.20-6.10); RDW 12.4 % (11.5-14.5)
[2020-03-17 05:51] LABS: HEMOGLOBIN 15.4 g/dL (13.5-17.5); PLATELET COUNT 418 10x3/uL (130-400); WBC 8.8 10x3/uL (4.8-10.8)
[2020-03-17 05:56] LABS: BILIRUBIN - TOTAL 0.81 mg/dL (0.2-1.3); CALCIUM 8.9 mg/dL (8.5-10.1); CARBON DIOXIDE 37.5 mmol/L (21.0-32.0); CREATININE - SERUM 1.6 mg/dL (0.6-1.3); MAGNESIUM - SERUM 2.2 mg/dL (1.8-2.4); PHOSPHOROUS 3.4 mg/dL (2.5-4.9)
[2020-03-17 06:04] LABS: ALBUMIN 3.5 g/dL (3.4-5.0); ANION GAP 5.1 mmol/L (8-16); PROTEIN - SERUM 6.6 g/dL (6.4-8.2)
[2020-03-17 06:05] LABS: POTASSIUM - SERUM 2.6 mmol/L (3.5-5.1)
[2020-03-17 06:58] VITALS: BP 127/88
[2020-03-17 08:00] VITALS: BP 139/92
[2020-03-17 09:49] VITALS: Ht 182.9 cm; Wt 83.4 kg
[2020-03-17 12:00] VITALS: BP 131/92
[2020-03-17 16:18] VITALS: BP 125/84
--- NOTE | 2020-03-17 19:28 | NUR ---
PATIENT IN BED WITH IV INTACT. NO COMPLAINTS OR SIGNS OF DISTRESS. CALL LIGHT WITHIN REACH. BSCDS ON BUT NOT CONNECTED. PATIENT UP TO BR FREQUENTLY.
[2020-03-17 20:00] VITALS: BP 112/77
[2020-03-18] VITALS: BP 108/71
--- NOTE | 2020-03-18 03:17 | NUR ---
ALERT AND ORENTED X4 ABLE TO VOICE NEEDS AND WANT STO STAFF. WATER AND CALL LIGHT IN REACH. NO NEEDS AT THIS TIME. IV IN PLACE TO LEFT AC. WITH NS WITH [address]NO NEEDS AT THIS TIME.
[2020-03-18 04:00] VITALS: BP 116/76
[2020-03-18 04:56] LABS: BASOPHILS 0.6 % (0-2); EOSINOPHILS 1.7 % (0-7); HEMATOCRIT 38.2 % (42.0-54.0); HEMOGLOBIN 13.4 g/dL (13.5-17.5); IMMATURE GRANULOCYTES 0.5 % (0-5); LYMPHOCYTES 34.4 % (15-50); MCH 29.3 pg (26.0-34.0); MCHC 35.1 g/dL (31.0-37.0); MCV 83.6 fL (80.0-100.0); MEAN PLATELET VOLUME 9.2 fL (7.4-10.4); MONOCYTES 10.9 % (2-11); NEUTROPHILS 51.9 % (40-80); PLATELET COUNT 389 10x3/uL (130-400); RBC 4.57 10x6/uL (4.20-6.10); RDW 12.5 % (11.5-14.5)
[2020-03-18 05:11] LABS: WBC 6.4 10x3/uL (4.8-10.8)
[2020-03-18 05:16] LABS: CALCIUM 8.6 mg/dL (8.5-10.1); CHLORIDE - SERUM 99 mmol/L (98-107); GLUCOSE 89 mg/dL (74-106); SODIUM 132 mmol/L (136-145)
[2020-03-18 05:17] LABS: CALC OSMOLALITY 264 mosm/kg (275-300); CARBON DIOXIDE 27.2 mmol/L (21.0-32.0); CREATININE - SERUM 1.1 mg/dL (0.6-1.3); MAGNESIUM - SERUM 1.6 mg/dL (1.8-2.4); PHOSPHOROUS 1.6 mg/dL (2.5-4.9); POTASSIUM - SERUM 3.3 mmol/L (3.5-5.1); UREA NITROGEN 15 mg/dL (7-18); eGFR NON AFRICAN AMERICAN 88 mL/min (90-120)
--- NOTE | 2020-03-18 07:45 | NUR ---
RECEIVED PT FROM REGIONAL MANAGER. UPON ENTERING PT WAS IN BED WITH EYES CLOSED, BREATHING EVEN AND UNLABORED, NO S/S OF DISTRESS NOTED. TELEMETRY, LEFT AC WITH NS WITH 20K @ 120. REPORTED TO BE ALERT AND ORIENTED X4 AND UP WITHOUT ASSIST. BD IN LOWEST POSITION, BED RAILS X2, CALL LIGHT WITHIN REACH. WILL CONTINUE TO MONITOR.
[2020-03-18 08:00] VITALS: BP 107/62
--- NOTE | 2020-03-18 10:31 | NUR ---
ADMINISTERED MEDICATIONS, NO COMPLAINTS. RESTING COMFORTABLY IN BED, DENIES ANY NEEDS. ASSESSMENT PERFORMED AT THIS TIME. WILL CONTINUE TO MONITOR.
[2020-03-18] MEDS ORDERED: Nicoderm [PBKC] TRANSDERM (11:12)
[2020-03-18] MEDS ORDERED: ELAVIL25 MG PO (11:13)
--- NOTE | 2020-03-18 11:38 | MORECARE ---
CASE MANAGEMENT DISCHARGE SUMMARY PATIENT: DARRELL PENN UNIT: [id number] ADM DATE: 03/16/20 AGE: 24 : [birth year] SEX: M ROOM/BED: D.2232 AUTHOR: MALKA SHERMAN PHYSICIAN: REFERRING PHYSICIAN: PASCALE SORENSEN DO DATE OF SERVICE: 03/18/20 Discharge Plan Patient Name: DARRELL PENN Facility: [facility]:[place] : 1995 Planned Disposition: Anticipated Discharge Date: Discharge Date: Expected LOS: Initial Reviewer: [email or web address] Initial Review Date: 03/18/2020 Generated: 03/18/20 12:38 pm Comments DCP- Discharge Planning Updated by [email or web address]: Luz Marina Logan on 03/18/20 10:[address] Patient Name: DARRELL PENN Admission Status: ER Accout number: [id number] Admission Date: 03-16-2020 : 1995 Admission Diagnosis: Attending: PASCALE SORENSEN Current LOS: 2 Anticipated DC Date: Planned Disposition: Primary Insurance: [place] PRIVATE OPTIONS [place] Discharge Planning Comments: CM met with patient at bedside after explaining CM role and obtaining verbal consent. CM discussed availability / needs of home health, REHAB and medical equipment. PATIENT DENIES ANY DISCHARGE NEEDS. STATES WILL HAVE SOMEONE PICK HIM UP WHEN DISCHARGED. Industrial Relations Officer: Luz Marina Logan DCPIA - Discharge Planning Initial Assessment Updated by [email or web address]: Luz Marina Logan on 03/18/20 11:33 am * Is the patient Alert and Oriented? Yes * PCP [place] * Pharmacy [facility] * Preadmission Environment Home Alone * ADLs Independent * Additional services required to return to the preadmission environment? No * Can the patient safely return to the preadmission environment? Yes * Has this patient been hospitalized within the prior 30 days at any hospital? Yes Patient Name: DARRELL PENN Page [phone] at 1138 All edits/amendments must be made on the electronic document DICTATION DATE: 03/18/20 1138 OIL BURNER JOURNEYMAN: DARYL 03/18/20 1138 RPT#: [id number] DC DATE: STATUS: ADM IN [place] [address] [place] [address] END OF REPORT
[2020-03-18 12:00] VITALS: BP 121/75
--- NOTE | 2020-03-18 14:04 | NUR ---
DC PT IV FROM RIGHT AC, CATHETER TIP INTACT. TOLERATED WELL. 2X2 AND TAPE COVERING SITE. ALL PAPERWORK SIGNED. PT IS DRESSED AND READY TO LEAVE. WILL HAVE WASHCOAT WIPER ESCORT PT DOWN TO EXIT.
--- NOTE | 2020-03-18 14:58 | MORECARE ---
CASE MANAGEMENT DISCHARGE SUMMARY PATIENT: DARRELL PENN UNIT: [id number] ADM DATE: 03/16/20 AGE: 24 : [birth year] SEX: M ROOM/BED: D.2232 AUTHOR: MALKA SHERMAN PHYSICIAN: REFERRING PHYSICIAN: PASCALE SORENSEN DO DATE OF SERVICE: 03/18/20 Discharge Plan Patient Name: DARRELL PENN Facility: [facility]:[place] : 1995 Planned Disposition: Anticipated Discharge Date: Discharge Date: 03/18/2020 Expected LOS: Initial Reviewer: [email or web address] Initial Review Date: 03/18/2020 Generated: 03/18/20 3:58 pm Comments DCP- Discharge Planning Updated by [id number]: Luz Marina Logan on 03/18/20 10:[address] Patient Name: DARRELL PENN Admission Status: ER Accout number: [id number] Admission Date: 03-16-2020 : 1995 Admission Diagnosis: Attending: PASCALE SORENSEN Current LOS: 2 Anticipated DC Date: Planned Disposition: Primary Insurance: [place] PRIVATE OPTIONS [place] Discharge Planning Comments: CM met with patient at bedside after explaining CM role and obtaining verbal consent. CM discussed availability / needs of home health, REHAB and medical equipment. PATIENT DENIES ANY DISCHARGE NEEDS. STATES WILL HAVE SOMEONE PICK HIM UP WHEN DISCHARGED. Binding Stitcher: Luz Marina Logan DCPIA - Discharge Planning Initial Assessment Updated by [email or web address]: Luz Marina Logan on 03/18/20 11:33 am * Is the patient Alert and Oriented? Yes * PCP [place] * Pharmacy [facility] * Preadmission Environment Home Alone * ADLs Independent * Additional services required to return to the preadmission environment? No * Can the patient safely return to the preadmission environment? Yes * Has this patient been hospitalized within the prior 30 days at any hospital? Yes Last DP export: 03/18/20 10:38 a Patient Name: DARRELL PENN Page 14182 at 1458 All edits/amendments must be made on the electronic document DICTATION DATE: 03/18/20 3822 FUEL CELL SYSTEMS ENGINEER: DARYL 03/18/20 1459 RPT#: [id number] DC DATE:03/18/20 STATUS: DIS IN [facility] [address] [place] [address] END OF REPORT
== END 2020-03-18 14:25 | disposition home or self-care (01) | DRG 897 ==
LOC: D.ER 19:56 → D.MS 22:29
PROVIDERS: Family Medicine; ADMIT Family Medicine; ATTEND Family Medicine
DX: F12.988 Cannabis use, unspecified with other cannabis-induced disorder (principal); N17.9 Acute kidney failure, unspecified; E87.1 Hypo-osmolality and hyponatremia; K31.84 Gastroparesis; F17.213 Nicotine dependence, cigarettes, with withdrawal; F17.203 Nicotine dependence unspecified, with withdrawal; R11.15 Cyclical vomiting syndrome unrelated to migraine; E87.6 Hypokalemia; D75.1 Secondary polycythemia

== ENCOUNTER 2020-04-01 17:20 | Inpatient (IN) | payer MEDICAID ==
[~2020-04-01] VITALS: Ht 182.9 cm; Wt 81.6 kg
[~2020-04-01 17:20] MED LIST changes: +ELAVIL25 MG PO
[2020-04-01 18:52] LABS: HEMATOCRIT 49.4 % (42.0-54.0); HEMOGLOBIN 17.5 g/dL (13.5-17.5); MCH 29.9 pg (26.0-34.0); MCHC 35.4 g/dL (31.0-37.0); MCV 84.3 fL (80.0-100.0); MEAN PLATELET VOLUME 9.5 fL (7.4-10.4); PLATELET COUNT 519 10x3/uL (130-400); RBC 5.86 10x6/uL (4.20-6.10); RDW 12.8 % (11.5-14.5)
[2020-04-01 19:01] VITALS: BP 139/103
[2020-04-01 19:06] LABS: ALBUMIN 5.3 g/dL (3.4-5.0); ALKALINE PHOSPHATASE 67 U/L (30-120); ALT (SGPT) 26 U/L (10-68); AMYLASE - SERUM 99 U/L (25-115); BILIRUBIN - TOTAL 0.65 mg/dL (0.2-1.3); CALC OSMOLALITY 271 mosm/kg (275-300); CALCIUM 10.4 mg/dL (8.5-10.1); CARBON DIOXIDE 36.6 mmol/L (21.0-32.0); CREATININE - SERUM 1.9 mg/dL (0.6-1.3); GLUCOSE 98 mg/dL (74-106); LIPASE 77 U/L (73-393); PROTEIN - SERUM 9.8 g/dL (6.4-8.2); SODIUM 131 mmol/L (136-145); UREA NITROGEN 37 mg/dL (7-18); eGFR NON AFRICAN AMERICAN 47 mL/min (90-120)
[2020-04-01 19:13] LABS: TROPONIN-I < 0.017 ng/mL (0.000-0.060)
[2020-04-01 19:14] LABS: CHLORIDE - SERUM 84 mmol/L (98-107); POTASSIUM - SERUM 2.8 mmol/L (3.5-5.1)
[2020-04-01 19:16] LABS: LYMPHOCYTES 6 % (15-50); MONOCYTES 2 % (2-11); NEUTROPHILS 92 % (40-80); PLATELET ESTIMATE INCREASED
--- NOTE | 2020-04-01 19:16 | NUR ---
BS REPORT TO NAINA WASHBURN
--- NOTE | 2020-04-01 20:00 | NUR ---
PATIENT ARRIVED ON FLOOR VIA WHEELCHAIR ESCORTED BY HOSPITAL. NO S/S OF ACUTE DISTRESS. PATIENT IS VERY NAUSEATED AND GAGGING/BLECHING INTO EMESIS BAG. ZOFRAN WAS GIVEN. PATIENT HAS IV IN RIGHT FOREARM, NORMAL SALINE WITH K 20 MEQ. IV IS PATENT WITHOUT REDNESS, SWELLING, OR TENDERNESS. PATIENT IS UP AD [place] AND ABLE TO GO TO THE BATHROOM BY HIMSELF. CALL LIGHT WITHIN REACH. WILL CONTINUE TO MONITOR.
--- NOTE | 2020-04-01 22:30 | NUR ---
PATIENT ARRIVED ON FLOOR VIA WHEELCHAIR. NO S/S OF ACUTE DISTRESS. PATIENT GAGGING/BLECHING INTO EMESIS BAG. ZOFRAN WAS GIVEN. PATIENT HAS RIGHT FOREARM, NORMAL SALINE WITH K 20 MEQ @ 125 ML/HR. IV IS PATENT WITHOUT REDNESS, SWELLING, OR TENDERNESS. PATIENT IS UP ADLIB. CALL LIGHT WITHIN REACH. WILL CONTINUE TO MONITOR.
[2020-04-01 23:35] VITALS: BP 137/95; BMI 24.4
--- NOTE | 2020-04-02 02:56 | NUR ---
I have reviewed this patient and I concur with the Shift Assessment completed by the Licensed Practical Nurse today this shift.
[2020-04-02 04:00] VITALS: BP 155/91
--- NOTE | 2020-04-02 08:41 | NUR ---
RESTING IN BED, NO DISTRESS NOTED, EYES CLOSED, IV INFUSING,CONT TO MONITOR [id number]
[2020-04-02 10:08] VITALS: Ht 182.9 cm; Wt 81.6 kg
[2020-04-02 11:00] LABS: BASOPHILS 0.1 % (0-2); EOSINOPHILS 0 % (0-7); HEMATOCRIT 42.7 % (42.0-54.0); IMMATURE GRANULOCYTES 0.2 % (0-5); LYMPHOCYTES 11.4 % (15-50); MCH 29.9 pg (26.0-34.0); MCHC 35.1 g/dL (31.0-37.0); MCV 85.2 fL (80.0-100.0); MEAN PLATELET VOLUME 9.2 fL (7.4-10.4); MONOCYTES 7.2 % (2-11); NEUTROPHILS 81.1 % (40-80); PLATELET COUNT 380 10x3/uL (130-400); RBC 5.01 10x6/uL (4.20-6.10); WBC 11.6 10x3/uL (4.8-10.8)
[2020-04-02 11:19] LABS: ALBUMIN 4.1 g/dL (3.4-5.0); BILIRUBIN - TOTAL 0.51 mg/dL (0.2-1.3); CALCIUM 9.4 mg/dL (8.5-10.1); CARBON DIOXIDE 32.7 mmol/L (21.0-32.0); CREATININE - SERUM 1.5 mg/dL (0.6-1.3); MAGNESIUM - SERUM 2.1 mg/dL (1.8-2.4)
[2020-04-02 11:24] LABS: ANION GAP 10.2 mmol/L (8-16); POTASSIUM - SERUM 3.9 mmol/L (3.5-5.1); PROTEIN - SERUM 7.1 g/dL (6.4-8.2)
[2020-04-02 12:16] VITALS: BP 143/99
[2020-04-02 16:15] VITALS: BP 136/89
[2020-04-02 20:00] VITALS: BP 160/105
--- NOTE | 2020-04-02 20:00 | NUR ---
PATIENT RESTING IN BED WITH EYES CLOSED. NO S/S OF ACUTE DISTRESS. NO C/O AT THIS TIME. PATIENT HAS RIGHT FOREARM IV, NORMAL SALINE WITH 20 MEQ KCL @ 125 ML/HR. IV IS PATENT WITHOUT REDNESS, SWELLING, OR TENDERNESS. PATIENT IS UP ADLIB. CALL LIGHT WITHIN REACH. WILL CONTINUE TO MONITOR.
[2020-04-03] VITALS: BP 119/82
--- NOTE | 2020-04-03 03:32 | NUR ---
I have reviewed this patient and I concur with the Shift Assessment completed by the Licensed Practical Nurse today this shift.
[2020-04-03 04:00] VITALS: BP 123/80
[2020-04-03 06:24] LABS: BASOPHILS 0.3 % (0-2); EOSINOPHILS 0.9 % (0-7); HEMATOCRIT 40.5 % (42.0-54.0); HEMOGLOBIN 13.9 g/dL (13.5-17.5); IMMATURE GRANULOCYTES 0.3 % (0-5); LYMPHOCYTES 24.9 % (15-50); MCH 29.3 pg (26.0-34.0); MCHC 34.3 g/dL (31.0-37.0); MCV 85.3 fL (80.0-100.0); MEAN PLATELET VOLUME 9.5 fL (7.4-10.4); MONOCYTES 9.4 % (2-11); NEUTROPHILS 64.2 % (40-80); PLATELET COUNT 348 10x3/uL (130-400); RBC 4.75 10x6/uL (4.20-6.10); RDW 12.6 % (11.5-14.5)
[2020-04-03 06:31] LABS: WBC 6.7 10x3/uL (4.8-10.8)
[2020-04-03 06:49] LABS: ALBUMIN 3.5 g/dL (3.4-5.0); ANION GAP 12.4 mmol/L (8-16); BILIRUBIN - TOTAL 0.69 mg/dL (0.2-1.3); CALCIUM 8.7 mg/dL (8.5-10.1); CARBON DIOXIDE 29.5 mmol/L (21.0-32.0); CREATININE - SERUM 1.3 mg/dL (0.6-1.3); MAGNESIUM - SERUM 1.8 mg/dL (1.8-2.4); POTASSIUM - SERUM 3.9 mmol/L (3.5-5.1); PROTEIN - SERUM 6.2 g/dL (6.4-8.2)
[2020-04-03 08:10] VITALS: BP 121/82
--- NOTE | 2020-04-03 09:14 | NUR ---
PT LYING IN BED ASLEEP, NO S/SX OF DISTRESS. CHANGED OUT IV FLUIDS, IV IN RT FA, PATENT. NO SWELLING OR REDNESS AT SIGHT. TELEMETRY IN PLACE, LUNGS CTA, BED IN LOWEST POSITION, CL IN REACH ASSUME PT CARE
[2020-04-03 12:19] VITALS: BP 138/94
--- NOTE | 2020-04-03 12:29 | NUR ---
PT SITTING AT SIDE OF BED STATED SHOWER IS NOT WORKING, TURNS ON BUT NO PRESSURE, PT DECLINED SHOWER AT THIS TIME AND STATED HE WILL TAKE ONE WHEN HE GETS HOME. EXPLAINED I HAVE NOT SEEN DC ORDERS YET AND CAN HAVE MAITENANCE COME FIX IT. PT CONTINUE TO SAY HE WILL TAKE ONE LATER. NO OTHER NEEDS VOICED, CONTINUE WITH PLAN OF CARE
[2020-04-03 12:49] LABS: BILIRUBIN NEGATIVE (NEGATIVE); GLUCOSE 50 mg/dL (NEGATIVE); KETONE SMALL mg/dL (NEGATIVE); NITRITE NEGATIVE (NEGATIVE); SPECIFIC GRAVITY 1.005 (1.005-1.020); UROBILINOGEN NORMAL (NORMAL)
[2020-04-03 12:58] LABS: UDS - AMPHET NEGATIVE QUAL (NEGATIVE); UDS - BARB NEGATIVE QUAL (NEGATIVE); UDS - BENZO NEGATIVE QUAL (NEGATIVE); UDS - COCAINE NEGATIVE QUAL (NEGATIVE); UDS - OPIATE NEGATIVE QUAL (NEGATIVE); UDS - PCP NEGATIVE QUAL (NEGATIVE); UDS - THC POSITIVE QUAL (NEGATIVE)
[2020-04-03] MEDS ORDERED: PROTONIX40 MG PO (13:19)
--- NOTE | 2020-04-03 13:55 | MORECARE ---
CASE MANAGEMENT DISCHARGE SUMMARY PATIENT: DARRELL PENN UNIT: [id number] ADM DATE: 04/01/20 AGE: 24 : [birth year] SEX: M ROOM/BED: D.2209 AUTHOR: WHIT,DOC PHYSICIAN: REFERRING PHYSICIAN: GIAN BLACKBURN MD DATE OF SERVICE: 04/03/20 Discharge Plan Patient Name: DARRELL PENN Facility: [facility]:[place] : 1995 Planned Disposition: Home or Self Care Anticipated Discharge Date: Discharge Date: Expected LOS: Initial Reviewer: [email or web address] Initial Review Date: 04/01/2020 Generated: 04/03/20 2:54 pm Comments DCP- Discharge Planning Updated by [email or web address]: Dacia Scott on 04/03/20 12:[address] Patient Name: DARRELL PENN Admission Status: ER Accout number: [id number] Admission Date: 04-01-2020 : 1995 Admission Diagnosis: Attending: CRISSY BLACKBURN Current LOS: 2 Anticipated DC Date: Planned Disposition: Home or Self Care Primary Insurance: [place] [employer] Discharge Planning Comments: CM met with patient to complete initial dc planning assessment. CM educated patient on the CM role and verbal consent given by patient to complete assessment. Patient lives at home by himself where he is independent with his care. At discharge patient plans to return home and feels this is a safe discharge. CM discussed availability of home health, rehab services, and medical equipment. 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 Patient denied known discharge needs at this time. CM will continue to follow and will assist as needed with dc plans/needs. Freight Brake Operator: Dacia Scott DCPIA - Discharge Planning Initial Assessment Updated by [email or web address]: Dacia Scott on 04/03/20 1:50 pm * Is the patient Alert and Oriented? Yes * PCP LAMAR * Pharmacy [facility] * Preadmission Environment Home Alone * ADLs Independent * Equipment None * List name and contact numbers for known caregivers / representatives who currently or will assist patient after discharge: WANDA POOL [phone] * Verbal permission to speak to the caregivers and representatives has been obtained from the patient. N/A * Community resources currently utilized None * Additional services required to return to the preadmission environment? No * Can the patient safely return to the preadmission environment? Yes * Has this patient been hospitalized within the prior 30 days at any hospital? Yes Patient Name: DARRELL PENN Page [id number] at 1355 All edits/amendments must be made on the electronic document DICTATION DATE: 04/03/201353 BROADCAST SUPERVISOR: DARYL 04/03/20 1354 RPT#: [id number] DC DATE: STATUS: ADM IN [facility] [address] [place] [address] END OF REPORT
--- NOTE | 2020-04-03 14:00 | NUR ---
PT DC HOME, ORDERED REG TRAY FIRST BEFORE DC, PT STATED HE FELT FINE AND FRIEND PICKING HIM UP IS AT [facility] AND WILL GET HIM SOMETHING. WENT OVER DC PAPERWORK AND FOLLOW UP APPOINTMENT WITH PT. ALL QUESTIONS ANSWERED. NO OTHER NEEDS AT THIS TIME. CONTINUE WITH PLAN OF CARE
--- NOTE | 2020-04-03 14:01 | NUR ---
DC PT IV WITH CATHETER INTACT
--- NOTE | 2020-04-04 12:03 | MORECARE ---
CASE MANAGEMENT DISCHARGE SUMMARY PATIENT: DARRELL PENN UNIT: [id number] ADM DATE: 04/01/20 AGE: 24 : [birth year] SEX: M ROOM/BED: D.2209 AUTHOR: WHIT,DOC PHYSICIAN: REFERRING PHYSICIAN: GIAN BLACKBURN MD DATE OF SERVICE: 04/04/20 Discharge Plan Patient Name: DARRELL PENN Facility: [facility]:[place] : 1995 Planned Disposition: Home or Self Care Anticipated Discharge Date: Discharge Date: 04/03/2020 Expected LOS: 0 Initial Reviewer: [email or web address] Initial Review Date: 04/01/2020 Generated: 04/04/20 1:02 pm Comments DCP- Discharge Planning Updated by [email or web address]: Dacia Scott on 04/03/20 12:[address] Patient Name: DARRELL PENN Admission Status: ER Accout number: [id number] Admission Date: 04-01-2020 : 1995 Admission Diagnosis: Attending: CRISSY BLACKBURN Current LOS: 2 Anticipated DC Date: Planned Disposition: Home or Self Care Primary Insurance: [place] [employer] Discharge Planning Comments: CM met with patient to complete initial dc planning assessment. CM educated patient on the CM role and verbal consent given by patient to complete assessment. Patient lives at home by himself where he is independent with his care. At discharge patient plans to return home and feels this is a safe discharge. CM discussed availability of home health, rehab services, and medical equipment. He stated that a friend will be his helper/driver home. Patient denied known discharge needs at this time. CM will continue to follow and will assist as needed with dc plans/needs. Stitch Rubber: Dacia Scott DCPIA - Discharge Planning Initial Assessment Updated by [id number]: Dacia Scott on 04/03/20 1:50 pm * Is the patient Alert and Oriented? Yes * PCP LAMAR * Pharmacy [facility] * Preadmission Environment Home Alone * ADLs Independent * Equipment None * List name and contact numbers for known caregivers / representatives who currently or will assist patient after discharge: WANDA POOL [phone] * Verbal permission to speak to the caregivers and representatives has been obtained from the patient. N/A * Community resources currently utilized None * Additional services required to return to the preadmission environment? No * Can the patient safely return to the preadmission environment? Yes * Has this patient been hospitalized within the prior 30 days at any hospital? Yes Last DP export: 04/03/20 12:55 p Patient Name: DARRELL PENN Page [id number] at 1203 All edits/amendments must be made on the electronic document DICTATION DATE: 04/04/201201 DYE JIG OPERATOR: DARYL 04/04/201201 RPT#: [id number] DC DATE:04/03/20 STATUS: DIS IN [facility] [address] [place] [address] END OF REPORT
== END 2020-04-03 14:02 | disposition home or self-care (01) | DRG 392 ==
LOC: D.ER 17:20 → D.MS 20:25
PROVIDERS: Family Medicine; ADMIT Emergency Medicine; ATTEND Emergency Medicine
DX: K31.84 Gastroparesis (principal); N17.9 Acute kidney failure, unspecified; E87.1 Hypo-osmolality and hyponatremia; F17.203 Nicotine dependence unspecified, with withdrawal; R11.15 Cyclical vomiting syndrome unrelated to migraine; E87.6 Hypokalemia; Z91.14 Patient's other noncompliance with medication regimen; F12.90 Cannabis use, unspecified, uncomplicated; I10 Essential (primary) hypertension

== ENCOUNTER 2020-04-11 19:54 | Inpatient (IN) | payer MEDICAID ==
[~2020-04-11] VITALS: Ht 182.9 cm; Wt 81.8 kg
[2020-04-11 22:14] LABS: BASOPHILS 0.1 % (0-2); EOSINOPHILS 0 % (0-7); HEMATOCRIT 49.9 % (42.0-54.0); HEMOGLOBIN 17.4 g/dL (13.5-17.5); IMMATURE GRANULOCYTES 0.3 % (0-5); LYMPHOCYTES 8.1 % (15-50); MCH 29.2 pg (26.0-34.0); MCHC 34.9 g/dL (31.0-37.0); MCV 83.7 fL (80.0-100.0); MEAN PLATELET VOLUME 9.3 fL (7.4-10.4); MONOCYTES 10.1 % (2-11); NEUTROPHILS 81.4 % (40-80); RBC 5.96 10x6/uL (4.20-6.10); RDW 12.9 % (11.5-14.5); WBC 15.2 10x3/uL (4.8-10.8)
[2020-04-11 22:30] LABS: PLATELET COUNT 521 10x3/uL (130-400)
[2020-04-11 22:45] LABS: ALBUMIN 5.1 g/dL (3.4-5.0); ALKALINE PHOSPHATASE 72 U/L (30-120); ALT (SGPT) 26 U/L (10-68); AMYLASE - SERUM 101 U/L (25-115); CALC OSMOLALITY 266 mosm/kg (275-300); CALCIUM 10.3 mg/dL (8.5-10.1); CARBON DIOXIDE 36.8 mmol/L (21.0-32.0); CREATININE - SERUM 1.6 mg/dL (0.6-1.3); GLUCOSE 98 mg/dL (74-106); LIPASE 77 U/L (73-393); PROTEIN - SERUM 9.7 g/dL (6.4-8.2); SODIUM 130 mmol/L (136-145); UREA NITROGEN 28 mg/dL (7-18); eGFR NON AFRICAN AMERICAN 57 mL/min (90-120)
[2020-04-11 22:48] LABS: CHLORIDE - SERUM 85 mmol/L (98-107); TROPONIN-I < 0.017 ng/mL (0.000-0.060)
[2020-04-11 22:52] LABS: POTASSIUM - SERUM 2.8 mmol/L (3.5-5.1)
[2020-04-11 23:51] LABS: BILIRUBIN NEGATIVE (NEGATIVE); GLUCOSE NEGATIVE (NEGATIVE); KETONE NEGATIVE (NEGATIVE); NITRITE NEGATIVE (NEGATIVE); SPECIFIC GRAVITY 1.005 (1.005-1.020); UROBILINOGEN NORMAL (NORMAL)
--- NOTE | 2020-04-12 00:01 | NUR ---
RECIEVED REPORT FROM AMAURY IN ER.
[2020-04-12 00:38] LABS: UDS - AMPHET NEGATIVE QUAL (NEGATIVE); UDS - BARB NEGATIVE QUAL (NEGATIVE); UDS - BENZO NEGATIVE QUAL (NEGATIVE); UDS - COCAINE NEGATIVE QUAL (NEGATIVE); UDS - OPIATE NEGATIVE QUAL (NEGATIVE); UDS - PCP NEGATIVE QUAL (NEGATIVE); UDS - THC POSITIVE QUAL (NEGATIVE)
--- NOTE | 2020-04-12 00:38 | NUR ---
FIRST POTASSIUM CHLORIDE RIDER COMPLETE AT THIS TIME. 100ML INFUSED.
--- NOTE | 2020-04-12 00:40 | NUR ---
RECIEVED TO ROOM 210 VIA STRETCHER. PT A&O. VITALS STABLE. IV TO LEFT AC WITH NS INFUSING. PLACED ON TELEMETRY, 76 SR PER MT. HISTORY AND MED REC OBTAINED. PT CURRENTLY DENIES PAIN OR NEEDS, BED LOW, CL IN REACH.
[2020-04-12 01:18] VITALS: Ht 182.9 cm; Wt 81.8 kg
[2020-04-12 04:00] VITALS: BP 125/85
[2020-04-12 05:47] LABS: BASOPHILS 0.2 % (0-2); EOSINOPHILS 0.4 % (0-7); HEMATOCRIT 42.6 % (42.0-54.0); HEMOGLOBIN 14.8 g/dL (13.5-17.5); IMMATURE GRANULOCYTES 0.2 % (0-5); LYMPHOCYTES 14.3 % (15-50); MCH 29.4 pg (26.0-34.0); MCHC 34.7 g/dL (31.0-37.0); MCV 84.5 fL (80.0-100.0); MEAN PLATELET VOLUME 9.5 fL (7.4-10.4); MONOCYTES 12.9 % (2-11); PLATELET COUNT 459 10x3/uL (130-400); RBC 5.04 10x6/uL (4.20-6.10); RDW 12.8 % (11.5-14.5)
[2020-04-12 06:08] LABS: BILIRUBIN - TOTAL 0.59 mg/dL (0.2-1.3); CALCIUM 9.1 mg/dL (8.5-10.1); CARBON DIOXIDE 32.2 mmol/L (21.0-32.0); CREATININE - SERUM 1.3 mg/dL (0.6-1.3)
[2020-04-12 06:11] LABS: ANION GAP 11.3 mmol/L (8-16); POTASSIUM - SERUM 3.5 mmol/L (3.5-5.1); PROTEIN - SERUM 7.2 g/dL (6.4-8.2)
[2020-04-12 06:38] LABS: WBC 11.1 10x3/uL (4.8-10.8)
--- NOTE | 2020-04-12 07:20 | NUR ---
RECIEVE REPORT. RESTING IN BED WITH EYES CLOSED. RESPIRATIONS NONLABORED. NO SIGNS OF DISTRESS. CONTINUE PLAN OF CARE AND SAFETY PRECAUTIONS.
[2020-04-12 10:03] VITALS: BP 111/65
[2020-04-12 13:33] VITALS: BP 117/79
--- NOTE | 2020-04-12 16:46 | NUR ---
ALERT AND ORIENTED X4. SITTING UP IN BED. DISCHARGE INSTRUCTIONS GIVEN VERBALLY AND WRITTEN. DISCHARGE PAPERS SIGNED ON CHART. DC LT HAND IV TIP INTACT. ESCORT TO RIDE VIA WHEELCHAIR. REMAINS FREE FROM INJURY.
== END 2020-04-12 16:47 | disposition home or self-care (01) | DRG 394 ==
LOC: D.ER 19:54 → D.M2 23:06
PROVIDERS: Family Medicine; ADMIT Family Medicine; ATTEND Family Medicine
DX: R11.15 Cyclical vomiting syndrome unrelated to migraine (principal); N17.9 Acute kidney failure, unspecified; E87.1 Hypo-osmolality and hyponatremia; F17.213 Nicotine dependence, cigarettes, with withdrawal; K31.84 Gastroparesis; E86.0 Dehydration; E83.52 Hypercalcemia; E87.6 Hypokalemia; F12.10 Cannabis abuse, uncomplicated; F12.188 Cannabis abuse with other cannabis-induced disorder; Z91.19 Patient's noncompliance with other medical treatment and regimen

== ENCOUNTER 2020-04-30 17:23 | Inpatient (IN) | payer MEDICAID ==
[~2020-04-30] VITALS: Ht 182.9 cm; Wt 83.1 kg
[2020-04-30 17:58] LABS: BASOPHILS 0.1 % (0-2); EOSINOPHILS 0 % (0-7); HEMATOCRIT 46.2 % (42.0-54.0); HEMOGLOBIN 16.4 g/dL (13.5-17.5); IMMATURE GRANULOCYTES 0.2 % (0-5); LYMPHOCYTES 10.8 % (15-50); MCH 29.3 pg (26.0-34.0); MCHC 35.5 g/dL (31.0-37.0); MCV 82.5 fL (80.0-100.0); MEAN PLATELET VOLUME 9.3 fL (7.4-10.4); MONOCYTES 6.6 % (2-11); NEUTROPHILS 82.3 % (40-80); RDW 12.5 % (11.5-14.5); WBC 10.1 10x3/uL (4.8-10.8)
[2020-04-30 18:00] LABS: PLATELET COUNT 597 10x3/uL (130-400)
[2020-04-30 18:19] LABS: ALBUMIN 4.6 g/dL (3.4-5.0); BILIRUBIN - TOTAL 0.57 mg/dL (0.2-1.3); CALCIUM 10.2 mg/dL (8.5-10.1); CARBON DIOXIDE 36.8 mmol/L (21.0-32.0); CREATININE - SERUM 1.4 mg/dL (0.6-1.3); PROTEIN - SERUM 9.4 g/dL (6.4-8.2)
[2020-04-30 18:24] LABS: POTASSIUM - SERUM 2.8 mmol/L (3.5-5.1)
--- NOTE | 2020-04-30 19:09 | NUR ---
URINE CUP TO PATIENT
[2020-04-30 20:00] VITALS: BP 128/77
--- NOTE | 2020-04-30 21:00 | NUR ---
PATIENT ARRIVED FROM ER. NO S/S OF ACUTE DISTRESS. NO C/O AT THIS TIME. PATIENT REPORTS NOT HAVING N&V AT THIS TIME. PATIENT HAS A LEFT AC, NORMAL SALINE WITH 40 MEQ KCL @ 125 ML/HR. IV IS PATENT WITHOUT REDNESS, SWELLING, OR TENDERESS. PATIENT IS UP ADLIB TO THE BATHROOM. CALL LIGHT WITHIN REACH. WILL CONTINUE TO MONITOR.
[2020-04-30 21:17] LABS: INR 0.96 (0.85-1.17); PROTIME 12.8 SECONDS (11.6-15.0)
[2020-04-30 21:21] LABS: NITRITE NEGATIVE (NEGATIVE); SPECIFIC GRAVITY 1.015 (1.005-1.020)
[2020-04-30 21:22] LABS: BILIRUBIN NEGATIVE (NEGATIVE); EPITHELIAL CELLS NSEEN /hpf (0-5); GLUCOSE NEGATIVE (NEGATIVE); KETONE MODERATE mg/dL (NEGATIVE); RED CELLS - URINE 0-5 /hpf (0-5); UROBILINOGEN NORMAL (NORMAL); WHITE CELLS - URINE 0-5 /hpf (NEGATIVE)
[2020-04-30 21:23] LABS: BACTERIA FEW /hpf (NEGATIVE)
[2020-04-30 23:45] VITALS: BP 128/77; Ht 182.9 cm; Wt 83.1 kg
[2020-05-01] VITALS: BP 116/69
[2020-05-01 04:00] VITALS: BP 121/77
[2020-05-01 05:59] LABS: BASOPHILS 0.3 % (0-2); EOSINOPHILS 0.7 % (0-7); HEMATOCRIT 43.4 % (42.0-54.0); IMMATURE GRANULOCYTES 0.3 % (0-5); LYMPHOCYTES 29.2 % (15-50); MCH 29.1 pg (26.0-34.0); MCHC 34.6 g/dL (31.0-37.0); MCV 84.1 fL (80.0-100.0); MEAN PLATELET VOLUME 9.4 fL (7.4-10.4); NEUTROPHILS 59.5 % (40-80); RBC 5.16 10x6/uL (4.20-6.10); RDW 12.3 % (11.5-14.5)
[2020-05-01 06:02] LABS: PLATELET COUNT 449 10x3/uL (130-400); WBC 7.4 10x3/uL (4.8-10.8)
[2020-05-01 06:35] LABS: ANION GAP 7.9 mmol/L (8-16); CALCIUM 9.2 mg/dL (8.5-10.1); CARBON DIOXIDE 34.1 mmol/L (21.0-32.0); CREATININE - SERUM 1.4 mg/dL (0.6-1.3); MAGNESIUM - SERUM 2.2 mg/dL (1.8-2.4)
[2020-05-01 08:59] VITALS: BP 124/87
[2020-05-01 12:10] VITALS: BP 108/65
[2020-05-01] MEDS ORDERED: AMITRIPTYLINE H50 MG PO (14:23)
[2020-05-01] MEDS ORDERED: NICODERM CQ1 EAC3 TRANSDERM (14:23)
[2020-05-01] MEDS ORDERED: KLOR-CON 1010 MEQ PO (14:25)
[2020-05-01 15:33] LABS: UDS - AMPHET NEGATIVE QUAL (NEGATIVE); UDS - BARB NEGATIVE QUAL (NEGATIVE); UDS - BENZO NEGATIVE QUAL (NEGATIVE); UDS - COCAINE NEGATIVE QUAL (NEGATIVE); UDS - OPIATE NEGATIVE QUAL (NEGATIVE); UDS - PCP NEGATIVE QUAL (NEGATIVE); UDS - THC POSITIVE QUAL (NEGATIVE)
--- NOTE | 2020-05-01 17:30 | NUR ---
PATIENT RECIEVED DC INSTRUCTIONS BY PAOLA SOOD. NO QUESTIONS AT THIS TIME. IV REMOVED WITH CATH TIP INTACT. WAITING FOR TRANSPORTATION FOR DC. POTASSIUM 3.7 NOW. TOLERATED REGULAR DIET WITH NO N/V.
--- NOTE | 2020-05-01 18:00 | NUR ---
PATIENT AMBULATED OUT OF HOSPTIAL WITH PERSONAL BELONGINGS TO PRIVATE VEHICLE. DID NOT WANT WC AT THIS TIME.
== END 2020-05-01 18:00 | disposition home or self-care (01) | DRG 394 ==
LOC: D.ER 17:23 → D.MS 20:04
PROVIDERS: Emergency Medicine; Family Medicine; ADMIT Family Medicine; ATTEND Family Medicine
DX: R11.15 Cyclical vomiting syndrome unrelated to migraine (principal); N17.9 Acute kidney failure, unspecified; E87.1 Hypo-osmolality and hyponatremia; F17.203 Nicotine dependence unspecified, with withdrawal; K31.84 Gastroparesis; E87.6 Hypokalemia

== ENCOUNTER 2020-05-06 13:19 | Emergency (ER) | payer MEDICAID ==
[~2020-05-06] VITALS: Ht 182.9 cm; Wt 81.8 kg
[~2020-05-06 13:19] MED LIST changes: +AMITRIPTYLINE H50 MG PO; +KLOR-CON 1010 MEQ PO; +NICODERM CQ1 EAC3 TRANSDERM
[2020-05-06 13:25] VITALS: Ht 182.9 cm; Wt 81.8 kg
[2020-05-06 14:43] LABS: BASOPHILS 0.1 % (0-2); EOSINOPHILS 0.1 % (0-7); HEMATOCRIT 47.1 % (42.0-54.0); HEMOGLOBIN 16.5 g/dL (13.5-17.5); IMMATURE GRANULOCYTES 0.4 % (0-5); LYMPHOCYTES 4.9 % (15-50); MCH 29.4 pg (26.0-34.0); MCV 83.8 fL (80.0-100.0); MONOCYTES 2.9 % (2-11); NEUTROPHILS 91.6 % (40-80); RBC 5.62 10x6/uL (4.20-6.10); RDW 12.6 % (11.5-14.5); WBC 13.3 10x3/uL (4.8-10.8)
[2020-05-06 14:45] LABS: PLATELET COUNT 583 10x3/uL (130-400)
[2020-05-06 15:11] LABS: CALC OSMOLALITY 270 mosm/kg (275-300); CALCIUM 9.9 mg/dL (8.5-10.1); CARBON DIOXIDE 32.1 mmol/L (21.0-32.0); CHLORIDE - SERUM 93 mmol/L (98-107); CREATININE - SERUM 1.4 mg/dL (0.6-1.3); POTASSIUM - SERUM 3.4 mmol/L (3.5-5.1); SODIUM 132 mmol/L (136-145); UREA NITROGEN 24 mg/dL (7-18); eGFR NON AFRICAN AMERICAN 67 mL/min (90-120)
[2020-05-06 15:12] LABS: GLUCOSE 133 mg/dL (74-106)
[2020-05-06 15:20] LABS: ALBUMIN 4.6 g/dL (3.4-5.0); ALKALINE PHOSPHATASE 73 U/L (30-120); ALT (SGPT) 22 U/L (10-68); BILIRUBIN - TOTAL 0.38 mg/dL (0.2-1.3); LIPASE 91 U/L (73-393); PROTEIN - SERUM 8.8 g/dL (6.4-8.2); TROPONIN-I < 0.017 ng/mL (0.000-0.060)
[2020-05-06 17:36] LABS: BILIRUBIN NEGATIVE (NEGATIVE); GLUCOSE NEGATIVE (NEGATIVE); KETONE SMALL mg/dL (NEGATIVE); NITRITE NEGATIVE (NEGATIVE); SPECIFIC GRAVITY 1.005 (1.005-1.020); UROBILINOGEN NORMAL (NORMAL)
[2020-05-06] MEDS ORDERED: ZOFRAN ODT4 MG/UDTAB PO (17:54)
[2020-05-06] MEDS ORDERED: REGLAN10 MG PO (17:54)
[2020-05-06 18:30] VITALS: BP 156/84
== END 2020-05-06 18:30 | disposition home or self-care (01) ==
LOC: D.ER 13:19
PROVIDERS: Family Medicine
DX: R11.10 Vomiting, unspecified (principal); K31.84 Gastroparesis; E87.6 Hypokalemia; E87.1 Hypo-osmolality and hyponatremia; D72.829 Elevated white blood cell count, unspecified; R73.9 Hyperglycemia, unspecified

== ENCOUNTER 2020-05-09 21:29 | Inpatient (IN) | payer MEDICAID ==
[~2020-05-09] VITALS: Ht 182.9 cm; Wt 81.8 kg
[2020-05-09 21:56] LABS: BASOPHILS 0 % (0-2); EOSINOPHILS 0 % (0-7); HEMATOCRIT 51.9 % (42.0-54.0); HEMOGLOBIN 18.7 g/dL (13.5-17.5); IMMATURE GRANULOCYTES 0.4 % (0-5); LYMPHOCYTES 12.8 % (15-50); MCH 29.4 pg (26.0-34.0); MCV 81.5 fL (80.0-100.0); MEAN PLATELET VOLUME 9.3 fL (7.4-10.4); MONOCYTES 3.4 % (2-11); NEUTROPHILS 83.4 % (40-80); PLATELET COUNT 632 10x3/uL (130-400); RBC 6.37 10x6/uL (4.20-6.10); RDW 12.4 % (11.5-14.5); WBC 19.6 10x3/uL (4.8-10.8)
[2020-05-09 22:13] LABS: ALBUMIN 5.1 g/dL (3.4-5.0); BILIRUBIN - TOTAL 0.89 mg/dL (0.2-1.3); CALCIUM 10.6 mg/dL (8.5-10.1); CREATININE - SERUM 2.4 mg/dL (0.6-1.3); PROTEIN - SERUM 9.7 g/dL (6.4-8.2)
[2020-05-09 22:15] LABS: ANION GAP 10.1 mmol/L (8-16)
[2020-05-09 22:21] LABS: POTASSIUM - SERUM 2.3 mmol/L (3.5-5.1)
[2020-05-09 22:22] LABS: CARBON DIOXIDE 43.2 mmol/L (21.0-32.0)
[2020-05-10] VITALS (14 sets, daily range): BP systolic 123–147; BP diastolic 82–98; Ht 182.9 cm; Wt 81.8 kg
[2020-05-10 01:02] LABS: BILIRUBIN NEGATIVE (NEGATIVE); GLUCOSE NEGATIVE (NEGATIVE); KETONE SMALL mg/dL (NEGATIVE); NITRITE NEGATIVE (NEGATIVE); SPECIFIC GRAVITY 1.015 (1.005-1.020); UROBILINOGEN NORMAL (NORMAL)
[2020-05-10 01:03] LABS: UDS - AMPHET NEGATIVE QUAL (NEGATIVE); UDS - BARB NEGATIVE QUAL (NEGATIVE); UDS - BENZO NEGATIVE QUAL (NEGATIVE); UDS - COCAINE NEGATIVE QUAL (NEGATIVE); UDS - OPIATE NEGATIVE QUAL (NEGATIVE); UDS - PCP NEGATIVE QUAL (NEGATIVE); UDS - THC POSITIVE QUAL (NEGATIVE)
[2020-05-10 01:04] LABS: BACTERIA FEW /hpf (NEGATIVE); EPITHELIAL CELLS 0-5 /hpf (0-5); RED CELLS - URINE 0-5 /hpf (0-5); WHITE CELLS - URINE 0-5 /hpf (NEGATIVE)
[2020-05-10 04:41] LABS: BASOPHILS 0.1 % (0-2); EOSINOPHILS 0 % (0-7); HEMOGLOBIN 17.4 g/dL (13.5-17.5); IMMATURE GRANULOCYTES 0.4 % (0-5); LYMPHOCYTES 10.5 % (15-50); MCH 29.2 pg (26.0-34.0); MCHC 35.5 g/dL (31.0-37.0); MCV 82.4 fL (80.0-100.0); MEAN PLATELET VOLUME 9.2 fL (7.4-10.4); MONOCYTES 11.5 % (2-11); NEUTROPHILS 77.5 % (40-80); PLATELET COUNT 560 10x3/uL (130-400); RBC 5.95 10x6/uL (4.20-6.10); RDW 12.4 % (11.5-14.5); WBC 18.3 10x3/uL (4.8-10.8)
[2020-05-10 05:25] LABS: ALBUMIN 4.4 g/dL (3.4-5.0); ALKALINE PHOSPHATASE 71 U/L (30-120); ALT (SGPT) 16 U/L (10-68); AMYLASE - SERUM 81 U/L (25-115); BILIRUBIN - TOTAL 0.87 mg/dL (0.2-1.3); CALC OSMOLALITY 269 mosm/kg (275-300); CALCIUM 9.5 mg/dL (8.5-10.1); CKMB 0.2 U/L (0.0-3.6); CREATINE KINASE 22 UL (21-232); CREATININE - SERUM 2.1 mg/dL (0.6-1.3); GLUCOSE 107 mg/dL (74-106); LIPASE 73 U/L (73-393); MAGNESIUM - SERUM 2.5 mg/dL (1.8-2.4); PROTEIN - SERUM 8.2 g/dL (6.4-8.2); SODIUM 129 mmol/L (136-145); UREA NITROGEN 42 mg/dL (7-18); eGFR NON AFRICAN AMERICAN 42 mL/min (90-120)
[2020-05-10 05:48] LABS: CARBON DIOXIDE 41.1 mmol/L (21.0-32.0); CHLORIDE - SERUM 81 mmol/L (98-107); POTASSIUM - SERUM 2.1 mmol/L (3.5-5.1)
--- NOTE | 2020-05-10 14:30 | NUR ---
RCVD PT FROM ER VIA HOSPITAL STAFF AND WHEELCHAIR. V/S STABLE, NO S/S OF DISTRESS AT THIS TIME, DENIES NEEDS. INFORMED MICHEAL EP TECH TELE IS NEEDED, NONE AVAILABLE AT THIS TIME, PUT ON WAIT LIST. WILL CONT TO MONITOR.
[2020-05-11] VITALS: BP 124/80
--- NOTE | 2020-05-11 03:27 | NUR ---
PT RESTING IN BED. EYE CLOSED. NO SIGNS OF DISTRESS. BREATHING EVEN AND UNLABORED. IV SITE LT WRIST DRESSING CLEAN DRY AND INTACT. NO SIGNS OF INFECTION OR INFULTRATION. SKIN CLEAN DRY AND INTACT. LUNG SOUNDS CLEAR. BOWEL SOUNDS ACTIVE. WILL CONITNUE PLAN OF CARE. CALL LIGHT IN REACH. BED LOWERED AND LOCKED. BED RAILS UPX2.
[2020-05-11 04:00] VITALS: BP 114/72
[2020-05-11 04:50] LABS: BASOPHILS 0.2 % (0-2); EOSINOPHILS 0.7 % (0-7); HEMATOCRIT 44.6 % (42.0-54.0); HEMOGLOBIN 15.7 g/dL (13.5-17.5); IMMATURE GRANULOCYTES 0.3 % (0-5); LYMPHOCYTES 22.7 % (15-50); MCHC 35.2 g/dL (31.0-37.0); MCV 82.4 fL (80.0-100.0); MEAN PLATELET VOLUME 9.6 fL (7.4-10.4); MONOCYTES 13.1 % (2-11); RBC 5.41 10x6/uL (4.20-6.10); RDW 12.3 % (11.5-14.5)
[2020-05-11 05:11] LABS: PLATELET COUNT 418 10x3/uL (130-400); WBC 9.9 10x3/uL (4.8-10.8)
--- NOTE | 2020-05-11 05:11 | NUR ---
I have reviewed this patient and I concur with the Shift Assessment completed by the Licensed Practical Nurse today this shift.
[2020-05-11 05:24] LABS: ALBUMIN 3.6 g/dL (3.4-5.0); ANION GAP 4.4 mmol/L (8-16); BILIRUBIN - TOTAL 0.85 mg/dL (0.2-1.3); CREATININE - SERUM 1.7 mg/dL (0.6-1.3); MAGNESIUM - SERUM 2.6 mg/dL (1.8-2.4); PROTEIN - SERUM 7.1 g/dL (6.4-8.2)
[2020-05-11 05:51] LABS: POTASSIUM - SERUM 2.4 mmol/L (3.5-5.1)
--- NOTE | 2020-05-11 06:45 | NUR ---
RESTING IN BED WITH EYES CLOSED. RESPIRATIONS EVEN AND UNLABORED. NO S/S OF ACUTE DISTRESS NOTED. IV TO LEFT WRIST, SL. SITE PATENT WITHOUT REDNESS OR SWELLING. POTASSIUM 2.4 THIS AM, STARTED ELECTROLYTE PROTOCOL. CALL LIGHT IN REACH. WILL CONTINUE TO MONITOR.
[2020-05-11 08:38] VITALS: BP 119/81
[2020-05-11 10:22] LABS: PHOSPHOROUS 2.1 mg/dL (2.5-4.9)
[2020-05-11 10:23] LABS: POTASSIUM - SERUM 2.7 mmol/L (3.5-5.1)
[2020-05-11 12:41] VITALS: BP 130/88
[2020-05-11] MEDS ORDERED: NICODERM CQ1 EAC3 TRANSDERM (15:54)
[2020-05-11] MEDS ORDERED: POTASSIUM CHLO20 MEQ PO (15:57)
[2020-05-11 17:00] VITALS: BP 136/88
--- NOTE | 2020-05-11 18:25 | NUR ---
RESTING IN BED WITH EYES OPEN. NO C/O PAIN. NO S/S OF ACUTE DISTRESS NOTED. DENIES ANY NEEDS AT THIS TIME. CALL LIGHT IN REACH.
--- NOTE | 2020-05-11 19:49 | NUR ---
I have reviewed this patient and I concur with the Shift Assessment completed by the Licensed Practical Nurse today this shift.
[2020-05-11 20:00] VITALS: BP 123/79
--- NOTE | 2020-05-11 20:15 | NUR ---
SITTING UP ON SIDE OF BED. IRRITABLE. WANTING TO GO HOME. INSTRUCTED THAT HIS POTASSIUM RIDERS NEED TO INFUSE AND HE NEEDS TO HAVE THE POTASSIUM RECHECKED AT 2245. HE VERBALIZED UNDERSTANDING. RESP EVEN AND NONLABORED. DENIES PAIN. AMBULATING IN ROOM. POTASSIUM RIDER INFUSING IN LT WRIST WITH NS. CL IN REACH.
--- NOTE | 2020-05-11 23:38 | NUR ---
IV CATH REMOVED FROM LT WRIST. PT NIYA WELL. D/C INSTRUCTIONS GIVEN TO PT AND PT SIGNED AND VERBALIZED UNDERSTANDING. PTS BELONGINGS IN BAG. PT TAKEN TO FAMILY CAR VIA W/C. PT STABLE AND GLAD TO BE GOING HOME.
== END 2020-05-11 23:40 | disposition home or self-care (01) | DRG 392 ==
LOC: D.ER 21:29 → OBSVTIME 05-10 00:04 → D.EDHOLD 05-10 00:04 → D.MS 05-10 11:35
PROVIDERS: Family Medicine; Internal Medicine Gastroenterology; ADMIT Family Medicine Adult Medicine; ATTEND Family Medicine Adult Medicine
DX: K31.84 Gastroparesis (principal); N17.9 Acute kidney failure, unspecified; E87.1 Hypo-osmolality and hyponatremia; F17.203 Nicotine dependence unspecified, with withdrawal; E87.6 Hypokalemia; D75.1 Secondary polycythemia; D72.829 Elevated white blood cell count, unspecified; D47.3 Essential (hemorrhagic) thrombocythemia; E83.52 Hypercalcemia; R11.15 Cyclical vomiting syndrome unrelated to migraine; F12.10 Cannabis abuse, uncomplicated